=== PATIENT | male | born 1985 | race Caucasian/White ===

== ENCOUNTER 2021-05-14 20:43 | Emergency (ER) | payer OTHER, SELFPAY ==
[2021-05-14 20:44] VITALS: BP 156/103; PULSE 94; RESP 16; TEMP 36.5; O2SAT 98; BMI 30.8
--- NOTE | 2021-05-14 21:41 | EDS_ITS ---
HPI History of Present Illness Chief Complaint: ETOH Intox Narrative Narrative: 35-year-old male with history of PTSD, anxiety, EtOH abuse presenting after his found him on the floor in his own vomit. Patient states that he drinks a lot of whiskey or moonshine. Today he had been drinking all day. His found him on the floor in his own vomit had difficulty getting him up. She was eventually able to get him off the floor. In the ED he states that he feels intoxicated but otherwise fine. He states that he has never gone through withdrawal or had withdrawal seizure. He states that he typically eats a lot of sugar when he stops drinking and has been able to do this multiple times. He denies of desire for detox. He does not want any kind of work-up or treatment. [facility] Medical History Alcohol abuse Anxiety Depression PTSD (post-traumatic stress disorder) Allergy/AdvReac Type Severity Reaction Status Date / Time No Known Allergies Allergy Verified 05/14/21 20:51 Social History Smoking Status: Never smoker ROS ROS ED Constitutional Constitutional ED: Denies chills, fever(s) or sweats Eyes Eyes: Denies blurry vision or change in vision ENT ENT ED: Denies ear pain or sore throat Cardiovascular Cardiovascular: Denies chest pain, palpitations or racing heartbeat Respiratory/Chest Respiratory/Chest: Denies cough, dyspnea or sputum Gastrointestinal Gastrointestinal: Reports nausea and vomiting; Denies abdominal pain, const ipation or diarrhea Genitourinary Genitourinary ED: Denies dysuria, hematuria or urinary frequency Musculoskeletal Musculoskeletal: Denies arthralgias, myalgias or neck pain Integumentary Denies abscess, Abrasions or rash Neurologic Neurologic: Denies headache(s), paresthesias or weakness Psychiatric Psychiatric: Reports anxiety and depression; Denies suicidal ideation or suicidal thoughts Endocrine Endocrinology: Denies polydipsia or polyuria EXAM Physical Exam Const Vital Signs: 05/14/21 20:44 Temperature 97.7 F L Temperature Source Oral Pulse Rate 94 Respiratory Rate 16 Blood Pressure 156/103 H Blood Pressure Mean 120 Pulse Ox 98 Oxygen Delivery Method Room Air Positive well nourished General Appearance ED: NAD HEENT Reports moist mucous membranes Negative for trauma Eyes PERRL and EOMs intact bilaterally General Eye ED: Negative for pale conjunctiva or scleral icterus Resp normal respiratory effort and clear to auscultation bilaterally Cardio regular rate and regular rhythm GI normal to inspection, nondistended, normoactive bowel sounds Neuro oriented x3 and CN's II-XII intact bilaterally Sensorium / Orientation: alert Psych mental status grossly normal Skin no rashes or lesions noted and no wounds MDM MDM MDM Narrative Medical decision making narrative: Patient presenting intoxicated on EtOH. He admits to drinking all day. He does not want to have any work-up nor does he want detox. Patient states that he has never gone through withdrawal symptoms that are significant. Patient is with his who was concerned because he was initially unresponsive but states he is at his baseline intoxication at this point. She feels she is comfortable to take him home at this time. Patient counseled he can return at any time for detox. Impression: 1. EtOH intoxication 2. EtOH abuse Discharge Plan Triage Chief Complaint: ETOH Intox ED Provider: Jalil Maher Dx/Rx/DC Orders Instructions: ED Alcohol Abuse Primary Care Provider: Care Physician,No Primary Referrals: Care Physician,No Primary [Primary Care Provider] - Disposition Disposition: Home, Self Care Discharge Date/Time: 05/14/21 21:52
[2021-05-14 21:49] VITALS: BP 121/86; PULSE 92; RESP 16; O2SAT 96
== END 2021-05-14 21:52 | disposition home or self-care (01) ==
PROVIDERS: Emergency Provider Student in an Organized Health Care Education/Training Program
DX: F10.129 Alcohol abuse with intoxication, unspecified (principal); Y90.9 Presence of alcohol in blood, level not specified
CPT/HCPCS: 99285

== ENCOUNTER → 2024-01-13 | Outpatient (CLI) | payer OTHER, SELFPAY ==
[2024-01-13 10:44] LABS: Bacteria 0 SEEN /hpf (None Seen); Mucous, Urine 0 SEEN /hpf (<or=2+); Red Blood Cells-Urine 0 SEEN /hpf (0-5); Squamous Epithelial Cells - UA 0 SEEN /hpf (0-5); White Blood Cells 0 SEEN /hpf (0-5)
[2024-01-13 12:20] LABS: Color, Urine Yellow (Yellow); Glucose, Dipstick Normal (Normal); Ketone-Dipstick Negative (Negative); Leukocyte Esterase-Dipstick Negative /ul (Negative); Nitrite-Dipstick Negative (Negative); Occult Blood-Urine Negative /ul (Negative); Protein-Dipstick Negative (Negative); Urine Bilirubin Dipstick Negative (Negative); Urine Clarity Clear (Clear); Urine Urobilinogen Normal (Normal)
== END | disposition home or self-care (01) ==
PROVIDERS: Visit Provider Physician Assistant
DX: R30.0 Dysuria (principal)
CPT/HCPCS: 81001; 87086

== ENCOUNTER → 2024-12-19 | Outpatient (CLI) | payer OTHER, SELFPAY ==
--- NOTE | 2024-12-19 07:45 | US_ITS ---
PROCEDURE: ULTRASOUND ABDOMEN LIMITED REASON FOR EXAM: RIGHT UPPER QUADRANT PAIN. COMPARISON: No relevant prior. FINDINGS: Liver: Grossly normal size and echotexture. Sagittal measurement of 16.4 cm. Blood flow: Hepatopetal. Gallbladder: No stones, sludge, wall thickening or tenderness. Common bile duct: Normal measuring 0.25 cm.. Pancreas: Visualized portions are sonographically unremarkable. Right kidney: 10.8 x 6.1 x 5.6 cm. Renal cortex measures 1.9 cm in thickness. US/Abdomen Limited IMPRESSION: NORMAL RIGHT UPPER QUADRANT ULTRASOUND. Reading Location: [facility]
== END | disposition home or self-care (01) ==
LOC: US 07:42
PROVIDERS: PCP Family Medicine; Referring Provider Internal Medicine; Visit Provider Internal Medicine
DX: R10.13 Epigastric pain (principal)
CPT/HCPCS: 76705

== ENCOUNTER → 2024-12-25 | Outpatient (CLI) | payer OTHER, SELFPAY ==
[2024-12-30 17:08] LABS: H. PYLORI STOOL AG Negative (Negative)
== END | disposition home or self-care (01) ==
LOC: LABSPEC 16:02
PROVIDERS: PCP Family Medicine; Referring Provider Internal Medicine; Visit Provider Internal Medicine
DX: R10.13 Epigastric pain (principal)
CPT/HCPCS: 87338

== ENCOUNTER → 2025-04-03 | Outpatient (CLI) | payer OTHER, SELFPAY ==
--- OUTSIDE RECORDS SUMMARY | 2025-04-03 09:11 | XMS RPT_ITS | CCD ---
Author Organization [facility] Clini[facility]v Care Team Providers Care Consulting Practice Manager Name Role Phone Marty Moyer Unavailable Unavailable Marty Moyer Unavailable Unavailable Marty Moyer Unavailable [phone] Unavailable Unavailable Care Physician, No Primary Primary Care Provider Unavailable Care Physician, No Primary Referring Provider Un available MAURICE Fortune Attending Provider [phone] MAURICE Larry Attending Provider [phone] Marty Moyer MD Primary Care Provider Xiang Rodriguez MD Primary Care Provider MARTY MOYER Primary Care Unavailable XIANG RODRIGUEZ Primary Care Unavailable XIANG RODRIGUEZ Primary Care Unavailable Xiang Rodriguez MD Primary Care Provider Xiang Rodriguez MD Primary Care Provider [phone] William Velez Referring Unavailable William Velez Attending Unavailable Xiang Rodriguez Primary Care Unavailable Care Physician, No Primary Primary Care Unava ilLane Ramsey Attending Unavailable William Velez Referring Unavailable William Velez Attending Unavailable Xiang Rodriguez Primary Care Unavailable Care Physician, No Primary Referring Unava ilable Care Physician, No Primary Primary Care Unava ilLane Ramsey Attending Unavailable Care Physician, No Primary Referring Unava ilable Care Physician, No Primary Primary Care Unava ilable Lane Larry Attending Unavailable Dr. William Velez DO Attending Provider [phone] Dr. William Velez DO Referring Provider Dr. Xiang Rodriguez MD Primary Care Provider COREY SANTIAGO Attending Unavailable FURNESS, XIANG T Primary Care Unavailable FURNESS, XIANG T Attending Unavailable FURNESS, XIANG T Primary Care Unavailable COREY SANTIAGO Attending Unavailable FURNESS, XIANG T Primary Care Unavailable SANTIAGOCOREY Henderson Attending Unavailable FURNESS, XIANG T Primary Care Unavailable FURNESS, XIANG T Attending Unavailable FURNESS, XIANG T Referring Unavailable FURNESS, XIANG T Primary Care Unavailable WILLIAM VELEZ Attending Unavailable FURNESS, XIANG T Referring Unavailable FURNESS, XIANG T Primary Care Unavailable SANTIAGOCOREY Henderson Attending Unavailable FURNESS, XIANG T Primary Care Unavailable Medications Current Medications Medication Drug Class(es) Dates Sig (Normalized) Sig (Original) ciprofloxacin 500 mg oral tablet (2 sources) Quinolone Antimicrobial Start: 01-13-2024 take 1 tablet by mouth twice daily Ciprofloxacin Hcl (Cipro) 500 mg tablet Active 500 mg PO TWICE A DAY January 13, 2024 12:00am ibuprofen 600 mg oral tablet (2 sources) Nonsteroidal Anti-inflammatory Drug Start: 01-22-2024 End: 02-01-2024 take 1 tablet by mouth twice daily ibuprofen 600 mg tablet Indications: Hx of prostatitis Take 1 tablet (600 mg) by mouth 2 times a day for 10 days. 20 tablet 0 01/22/2024 02/01/2024 Active [place] (Nk) (2 sources) Start: 01-13-2024 [place] (Nk) Active January 13, 2024 12:00am ondansetron 4 mg oral tablet (9 sources) Serotonin-3 Receptor Antagonist Start: 02-06-2024 take 1 tablet by mouth every eight hours for nausea ondansetron (Zofran) 4 mg tablet Indications: Pain of upper abdomen Take 1 tablet (4 mg) by mouth every 8 hours if needed for nausea or vomiting. 20 tablet 1 02/06/2024 Active Start: 01-31-2024 take 1 tablet by jojo th every eight hours for nausea ondansetron (Zofran) 4 mg tablet Indications: Pain of upper abdomen Take 1 tablet (4 mg) by mouth every 8 hours if needed for nausea or vomiting. 10 tablet 2 01/31/2024 Active oxybate (3 sources) take 3 g by mouth twice daily sodium oxybate (XYREM ORAL) Take 3 g by mouth twice a day. Active pantoprazole 40 mg delayed release oral tablet (9 sources) Proton Pump Inhibitor Start: 2023 End: 2024 take 1 tablet by mouth once daily before mealtime pantoprazole (ProtoNix) 40 mg EC tablet Indications: Gastroesophageal reflux disease with esophagitis without hemorrhage Take 1 tablet (40 mg) by mouth once daily in the morning. Take before meals. Do not crush, chew, or split. 30 tablet 11 01/31/2024 Active sulfamethoxazole 800 mg / trimethoprim 160 mg oral tablet (2 sources) Dihydrofolate Reductase Inhibitor Antibacterial, Sulfonamide Antimicrobial Start: 2023 End: 2023 take 1 tablet by mouth once daily sulfamethoxazole-trim ethoprim (Bactrim DS) 800-160 mg tablet Indications: Hx of prostatitis Take 1 tablet by mouth once daily. 30 tablet 0 01/22/2024 02/21/2024 Active tadalafil 5 mg oral tablet (13 sources) Phosphodiesterase 5 Inhibitor Start: 2023 End: 2024 take 1 tablet by mouth once daily tadalafil (Cialis) 5 mg tablet Indications: Hx of prostatitis Take 1 tablet (5 mg) by mouth once daily. 30 tablet 11 02/10/2025 03/12/2025 Active Start: 01-22-2024 End: 08-12-2024 take 1 tablet by mouth once daily tadalafil (Cialis) 5 mg tablet Indications: Hx of prostatitis Take 1 tablet (5 mg) by mouth once daily. 30 tablet 11 03/02/2024 Active 1 ml testosterone cypionate 200 mg/ml injection (11 sources) Androgen Start: 02-14-2025 End: 03-16-2025 testosterone cypionate (Depo-Testosterone) 200 mg/mL injection Indications: Male hypogonadism Inject 1 mL (200 mg) into the muscle 1 (one) time per week. 4 mL 5 02/14/2025 03/16/2025 Active Start: 08-23-2024 End: 02-10-2025 testosterone cypionate (Depo -Testosterone) 200 mg/mL injection Indications: Male hypogonadism Inject 1 mL (200 mg) into the muscle 1 (one) time per week. 4 mL 5 08/23/2024 02/10/2025 Discontinued (Reorder) Start: 06-21-2024 End: 08-12-2024 testosterone cypionate (Depo -Testosterone) 200 mg/mL injection Indications: Male hypogonadism Inject 1 mL (200 mg) into the muscle 1 (one) time per week. 4 mL 5 06/21/2024 08/12/2024 Discontinued (Reorder) Start: 03-02-2024 End: 08-12-2024 testosterone enanthate (Xyos selvin) 100 mg/0.5 mL auto-injector Indications: Male hypogonadism Inject 1 Syringe (100 mg) under the skin every 7 days. 4 each 5 03/02/2024 08/12/2024 Discontinued (Med List Cleanup) Completed/Discontinued Medications Medication Drug Class(es) Dates Sig (Normalized) Sig (Original) diazePAM 10 mg oral tablet (3 sources) Benzodiazepine Start: 06-19-2021 take 1 tablet by mouth every hour diazePAM 10 MG Oral Tablet TAKE 1 TABLET 1 HOUR PRIOR TO PROCEDURE. Quantity: 1 Refills: 0 Ordered: 25-Jul-2021 Corey Santiago II, MD Start : 19-Jun-2021 Active diphenhydrAMINE hydrochloride 25 mg oral tablet (4 sources) Histamine-1 Receptor Antagonist Start: 09-28-2019 take 1 tablet by mouth at bedtime Benadryl Allergy 25 MG Oral Tablet TAKE 1 TABLET AT BEDTIME. Quantity: 0 Refills: 0 Ordered: 28-Sep-2019 DO Start : 28-Sep-2019 Active 24 hr QUEtiapine 50 mg extended release oral tablet (4 sources) Atypical Antipsychotic Start: 09-28-2019 take 1 tablet by mouth once daily QUEtiapine Fumarate ER 50 MG Oral Tablet Extended Release 24 Hour TAKE 1 TABLET DAILY. Quantity: 30 Refills: 0 Ordered: 28-Sep-2019 Marty Moyer MD Start : 28-Sep-2019 Active 24 hr venlafaxine 37.5 mg extended release oral tablet (4 sources) Serotonin and Norepinephrine Reuptake Inhibitor Start: 09-28-2019 take 1 tablet by mouth every twenty-four hours at mealtime Venlafaxine HCl ER 37.5 MG Oral Tablet Extended Release 24 Hour 1 tablet in the morning with food Quantity: 14 Refills: 1 Ordered: 28-Sep-2019 Marty Moyer MD Start : 28-Sep-2019 Active Problems Active Problems Problem Classification Problem Date Documented Date Episodic/Chronic Abdominal pain (15 sources) Upper abdominal pain; Translations: [Upper abdominal pain, unspecified] Onset: 01-31-2024 01-31-2024 Episodic Alcohol-related disorders (4 sources) Alcoholism; Translations: [Other and unspecified alcohol dependence, unspecified] Chronic Anxiety disorders (4 sources) Anxiety; Translations: [Anxiety state, unspecified] Chronic Contraceptive and procreative management (3 sources) Patient encounter status; Translations: [Other general counseling and advice on contraceptive management] Episodic Esophageal disorders (14 sources) Gastro-esophageal reflux disease with esophagitis; Translations: [Gastroesophageal reflux disease with esophagitis without hemorrhage] Onset: 01-31-2024 01-31-2024 Chronic Esophageal disorders (4 sources) Esophageal disorders; Translations: [Gastro-esophageal reflux disease with esophagitis, without bleeding] Onset: 01-31-2024 Hyperplasia of prostate (12 sources) Benign prostatic hypertrophy with outflow obstruction; Translations: [Benign prostatic hyperplasia with lower urinary tract symptoms] Onset: 02-26-2024 02-26-2024 Chronic Other disorders of stomach and duodenum (1 source) Indigestion 12-10-2024 Episodic Other endocrine disorders (11 sources) Male hypogonadism; Translations: [Testicular hypofunction] Onset: 03-02-2024 03-02-2024 Chronic Other endocrine disorders (4 sources) Testicular hypofunction; Translations: [Testicular hypofunction] Onset: 03-02-2024 Chronic Other male genital disorders (15 sources) History of prostatitis; Translations: [Personal history of other diseases of male genital organs] Onset: 01-22-2024 01-22-2024 Episodic Past or Other Problems Problem Classification Problem Date Documented Da te Episodic/Chronic Genitourinary symptoms and ill-defined conditions (20 sources) Delay when starting to pass urine; Translations: [Hesitancy of micturition] Onset: 01-17-2024 01-22-2024 Episodic Malaise and fatigue (4 sources) Fatigue; Translations: [Other fatigue] Onset: 01-31-2024 01-31-2024 Episodic Other diseases of kidney and ureters (2 sources) Other obstructive and reflux uropathy; Translations: [Other obstructive and reflux uropathy] Onset: 02-26-2024 Episodic Other male genital disorders (2 sources) Personal history of other diseases of male genital organs; Translations: [Personal history of other diseases of male genital organs] Onset: 01-22-2024 Episodic Unclassified (6 sources) Onset: 03-06-2024 03-06-2024 Urinary tract infections (11 sources) Urinary tract infectious disease; Translations: [Urinary tract infection, site not specified] Onset: 01-22-2024 01-22-2024 Episodic Results Test Name Value Interpretation Reference Range Facility HEMOGLOBIN + HEMATOCRITon HEMATOCRIT Normal [facility] Comment on above: Order Comment: FASTI NG:NO FASTING: NO Performed By: #### 5 363, 873, 7998 #### [facility] [address], [address] [place] [address] Head Lineman: Dwight Randall MD HEMOGLOBIN Normal [facility] Comment on above: Order Comment: FASTI NG:NO FASTING: NO Performed By: #### 5 363, 873, 7998 #### [facility] [address], [address] [place] [address] Head Lineman: Dwight Randall MD PSA, TOTALon 02-06-2025 PSA, TOTAL 0.42 ng/mL Normal < OR = 4.00 [facility] Comment on above: Result Comment: The total PSA value from this assay system is standardized against the WHO standard. The test result will be approximately 20% lower when compared to the equimolar-standardized total PSA (Ann [place]). Comparison of serial PSA results should be interpreted with this fact in mind. This test was performed using the Siemens chemiluminescent method. Values obtained from different assay methods cannot be used interchangeably. PSA levels, regardless of value, should not be interpreted as absolute evidence of the presence or absence of disease. Performed By: #### 5 363, 873, 7998 #### [facility] [address], [address] [place], [place] [id number] Head Lineman: Dwight Randall MD TESTOSTERONE, TOTAL, MALES ( ADULT), IAon 02-06-2025 TESTOSTERONE, TOTAL, MALES (ADULT), IA 1152 ng/dL High 250-827 [facility] Comment on above: Performed By: #### 5 363, 873, 7998 #### [facility] of [address], [address] [place] [id number] Head Lineman: Dwight Randall MD H. PYLORI STOOL AGon 025 H PYLORI STL AG Negative Normal Negative [facility] Comment on above: Performed By: #### L 3100.1950 #### [facility] [address] [place], [address] H. pylori Ag IA Ql (Stl)Orde red By: William Velez on 12-25-2024 Stool Helicobacter pylori Antigen Negative Negative [facility] Abdomen Limitedon 12-19-2024 Abdomen Limited [facility] [address] [place], [place] [address] Abdomen Limited MR#: [id number] Acct: [id number] Name: FAN THOMAS Rep #: [id number] : 1985 M 39 From: Vasile Fitch MD PCP: Dr. Xiang Rodriguez MD Status: REG CLI Study: Abdomen Limited Date of Exam: 12/19/24 Exam# [id number] Ordering Dr: William Velez DO PROCEDURE: ULTRASOUND ABDOMEN LIMITED REASON FOR EXAM: RIGHT UPPER QUADRANT PAIN. COMPARISON: No relevant prior. FINDINGS: Liver: Grossly normal size and echotexture. Sagittal measurement of 16.4 cm. Blood flow: Hepatopetal. Gallbladder: No stones, sludge, wall thickening or tenderness. Common bile duct: Normal measuring 0.25 cm.. Pancreas: Visualized portions are sonographically unremarkable. Right kidney: 10.8 x 6.1 x 5.6 cm. Renal cortex measures 1.9 cm in thickness. US/Abdomen Limited IMPRESSION: NORMAL RIGHT UPPER QUADRANT ULTRASOUND. Reading Location: [facility] CC: Dr. William Velez DO; Dr. Xiang Rodriguez MD Automatic Screwmaker: Signed Normal [facility] Hemoglobin and Hematocrit pa suzanna (Bld)on 08-05-2024 Hematocrit (Bld) [Volume fraction] 43.3 % Normal 41.0-52.0 [facility] Comment on above: Performed By: #### 2 4360-0 ###Kei VELAZQUEZ ([id number]) [facility] ([facility]) [address] [place] [address] Hemoglobin (Bld) [Mass/Vol] 15.1 g/dL Normal 13.5-17.5 [facility] Comment on above: Performed By: #### 2 4360-0 #### CONCHIS VELAZQUEZ ([id number]) [facility] ([facility]) [facility] [place] [address] Prostate specific Agon 08-05 Prostate specific Ag [Mass/Vol] 0.59 ng/mL Normal <=4.00 [facility] Comment on above: Order Comment: The DA requires that the method used for PSA assay be reported to the physician. Values obtained with different assay methods must not be used interchangeably. This test was performed at [facility] using the HYLA Mobile PSA assay is a two-site immunoenzymatic sandwich assay. The assay is approved for measurement of prostate-specific antigen (PSA)in serum and may be used in conjunction with a digital rectal examination in men 50 years and older as an aid in detection of prostate cancer. 1-Vpmzg-pxzkztwdz inhibitors (e.g. Proscar, Finasteride, Avodart, Dutasteride and Josseline) for the treatment of BPH have been shown to lower PSA levels by an average of 50% after 6 months of treatment. Performed By: #### 2 857-1 #### CONCHIS VELAZQUEZ ([id number]) [facility] ([facility]) [address] [place] [address] Testosteroneon 08-05-2024 Testosterone [Mass/Vol] 1074 ng/dL High 240-1000 [facility] Comment on above: Order Comment: Nandr olone decanoate, 11 Beta-hydroxytestosterone, androstenedione, testosterone propionate and 12-zelm-nmuzpyczqlrg strongly cross react with this test method. Biotin interference may cause falsely elevated results. Patients taking a Biotin dose of up to 5 mg/day should refrain from taking Biotin for 24 hours before sample collection. Providers may contact their local laboratory for further information. Performed By: #### 2 986-8 #### BLANCA Dias ([id number]) [facility] ([facility]) [address] [place] [address] Testosterone Free/Testostero ne.total [Mass fraction]on 02-26-2024 Testosterone [Mass/Vol] 403 ng/dL Normal 250-1100 [facility] Comment on above: Result Comment: For additional information, please refer to http://education.NexSteppe.EGEN/faq/ [email or web address] (This link is being provided for informational/ educational purposes only.) This test was developed and its analytical performance characteristics have been determined by [facility] [place] [place]. It has not been cleared or approved by the U.S. Food and Drug Administration. This assay has been validated pursuant to the CLIA regulations and is used for clinical purposes. Performed By: #### 1 5432-8 #### KENN SCOTT ([id number]) [address] [facility] [place] Testosterone Free [Mass/Vol] 52.0 pg/mL Normal 35.0-155.0 [facility] Comment on above: Result Comment: This test was developed and its analytical performance characteristics have been determined by [facility] [place] [place]. It has not been cleared or approved by the U.S. Food and Drug Administration. This assay has been validated pursuant to the CLIA regulations and is used for clinical purposes. Performed By: #### 1 5432-8 #### QUEST TYLER ([id number]) [address] [facility] [place] CBC panel Auto (Bld)on 01-30 Erythrocyte distribution width (RBC) [Ratio] 12.8 % Normal 11.5-14.5 [facility] Comment on above: Performed By: #### 5 8410-2 #### CONCHIS VELAZQUEZ ([id number]) [facility] ([facility]) [address] [place] [address] Hematocrit (Bld) [Volume fraction] 42.8 % Normal 41.0-52.0 [facility] Comment on above: Performed By: #### 5 8410-2 #### CONCHIS VELAZQUEZ ([id number]) [facility] ([facility]) [address] [place] [address] Hemoglobin (Bld) [Mass/Vol] 14.4 g/dL Normal 13.5-17.5 [facility] Comment on above: Performed By: #### 5 8410-2 #### CONCHIS VELAZQUEZ ([id number]) [facility] ([facility]) [address] [place] [address] 07167 MCH (RBC) [Entitic mass] 29.1 pg Normal 26.0-34.0 [facility] Comment on above: Performed By: #### 5 8410-2 #### CONCHIS VELAZQUEZ ([id number]) [facility] ([facility]) [address] [place] [address] 33653 MCHC (RBC) [Mass/Vol] 33.6 g/dL Normal 32.0-36.0 [facility] Comment on above: Performed By: #### 5 8410-2 #### CONCHIS VELAZQUEZ ([id number]) [facility] ([facility]) [address] [place] [address] 64994 MCV (RBC) [Entitic vol] 87 fL Normal 80-100 [facility] Comment on above: Performed By: #### 5 8410-2 #### CONCHIS VELAZQUEZ ([id number]) [facility] ([facility]) [address] [place] [address] 35475 Nucleated RBC/100 WBC (Bld) [Ratio] 0.0 /100 WBCs Normal 0.0-0.0 [facility] Comment on above: Performed By: #### 5 8410-2 #### CONCHIS VELAZQUEZ ([id number]) [facility] ([facility]) [address] [place] [address] 66293 Platelets (Bld) [#/Vol] 254 x10*3/uL Normal 150-450 [facility] Comment on above: Performed By: #### 5 8410-2 #### CONCHIS VELAZQUEZ ([id number]) [facility] ([facility]) [address] [place] [address] 60842 RBC (Bld) [#/Vol] 4.95 x10*6/uL Normal 4.50-5.90 [facility] Comment on above: Performed By: #### 5 8410-2 #### CONCHIS VELAZQUEZ ([id number]) [facility] ([facility]) [address] [place] [address] 98728 WBC (Bld) [#/Vol] 6.6 x10*3/uL Normal 4.4-11.[address] [facility] Comment on above: Performed By: #### 5 8410-2 #### CONCHIS VELAZQUEZ ([id number]) [facility] ([facility]) [address] [place] [address] 57760 Cobalaminson 01-31-2024 Cobalamin (Vitamin B12) [Mass/Vol] 429 pg/mL Normal 211-911 [facility] Comment on above: Performed By: #### 2 132-9 #### CONCHIS VELAZQUEZ ([id number]) [facility] ([facility]) [address] [place] [address] 97218 Comprehensive metabolic 2000 panelon 01-31-2024 Albumin BCP dye [Mass/Vol] 5.1 g/dL High 3.4-5.0 [facility] Comment on above: Performed By: #### 2 4323-8 #### CONCHIS VELAZQUEZ ([id number]) [facility] ([facility]) [address] [place] [address] 84210 ALP [Catalytic activity/Vol] 44 U/L Normal 33-120 [facility] Comment on above: Performed By: #### 2 4323-8 #### CONCHIS VELAZQUEZ ([id number]) [facility] ([facility]) [address] [place] [address] 43700 ALT With P-5'-P [Catalytic activity/Vol] 46 U/L Normal 10-52 [facility] Comment on above: Result Comment: Maty ents treated with Sulfasalazine may generate falsely decreased results for ALT. Performed By: #### 2 4323-8 #### CONCHIS VELAZQUEZ ([id number]) [facility] ([facility]) [address] [place] [address] 87161 Anion gap [Moles/Vol] 9 mmol/L Low 10-20 [facility] Comment on above: Performed By: #### 2 4323-8 #### CONCHIS VELAZQUEZ ([id number]) [facility] ([facility]) [address] [place] [address] AST With P-5'-P [Catalytic activity/Vol] 22 U/L Normal 9-39 [facility] Comment on above: Performed By: #### 2 4323-8 #### CONCHIS VELAZQUEZ ([id number]) [facility] ([facility]) [address] [place] [address]186 Bilirubin [Mass/Vol] 0.5 mg/dL Normal 0.0-1.2 [facility] Comment on above: Performed By: #### 2 4322-8 #### CONCHIS VELAZQUEZ ([id number]) [facility] ([facility]) [address] [place] [address] 72993 Calcium [Mass/Vol] 9.5 mg/dL Normal 8.6-10.3 [facility] Comment on above: Performed By: #### 2 4322-8 #### CONCHIS VELAZQUEZ ([id number]) [facility] ([facility]) [address] [place] [address] Chloride [Moles/Vol] 104 mmol/L Normal 98-107 [facility] Comment on above: Performed By: #### 2 432-8 #### CONCHIS VELAZQUEZ ([id number]) [facility] ([facility]) [address] [place] [address] 66396 CO2 [Moles/Vol] 29 mmol/L Normal 21-32 [facility] Comment on above: Performed By: #### 2 4322-8 #### CONCHIS VELAZQUEZ ([id number]) [facility] ([facility]) [address] [place] [address] 63551 Creatinine [Mass/Vol] 1.02 mg/dL Normal 0.50-1.30 [facility] Comment on above: Performed By: #### 2 4323-8 #### CONCHIS VELAZQUEZ ([id number]) [facility] ([facility]) [address] [place] [address] 97408 GFR/1.73 sq M.predicted MDRD (S/P/Bld) [Vol rate/Area] mL/min/{1.73_m2} Normal >60 [facility] Comment on above: Result Comment: Calc ulations of estimated GFR are performed using the 2020 CKD-EPI Study Refit equation without the race variable for the IDMS-Traceable creatinine methods. https://jasn.asnjournals.org/content//ASN.167 8427912 Performed By: #### 2 4323-8 #### CONCHIS VELAZQUEZ ([id number]) [facility] ([facility]) [address] [place] [address] 84697 Glucose [Mass/Vol] 81 mg/dL Normal 74-99 [facility] Comment on above: Performed By: #### 2 4323-8 #### CONCHIS VELAZQUEZ ([id number]) [facility] ([facility]) [address] [place] [address] 59027 Potassium [Moles/Vol] 4.4 mmol/L Normal 3.5-5.3 [facility] Comment on above: Performed By: #### 2 4323-8 #### CONCHIS VELAZQUEZ ([id number]) [facility] ([facility]) [address] [place] [address] 82760 Protein [Mass/Vol] 7.5 g/dL Normal 6.4-8.2 [facility] Comment on above: Performed By: #### 2 4323-8 #### CONCHIS VELAZQUEZ ([id number]) [facility] ([facility]) [address] [place] [address] 52152 Sodium [Moles/Vol] 138 mmol/L Normal 136-145 [facility] Comment on above: Performed By: #### 2 4323-8 #### CONCHIS VELAZQUEZ ([id number]) [facility] ([facility]) [address] [place] [address] 71972 Urea nitrogen [Mass/Vol] 16 mg/dL Normal 6-23 [facility] Comment on above: Performed By: #### 2 4323-8 #### CONCHIS VELAZQUEZ ([id number]) [facility] ([facility]) [address] [place] [address] Magnesiumon 01-31-2024 Magnesium [Mass/Vol] 2.09 mg/dL Normal 1.60-2.40 [facility] Comment on above: Performed By: #### 1 9123-9 #### CONCHIS VELAZQUEZ ([id number]) [facility] ([facility]) [facility] [place] [address] Thyrotropinon 01-31-2024 TSH Qn 1.77 m[IU]/L Normal 0.44-3.98 [facility] Comment on above: Order Comment: TSH t esting is performed using different testing methodology at [facility] than at other [facility]. Direct result comparisons should only be made within the same method. Performed By: #### 3 016-3 #### CONCHIS VELAZQUEZ ([id number]) [facility] ([facility]) [address] [place] [address] Triacylglycerol lipaseon Lipase [Catalytic activity/Vol] 29 U/L Normal 9-82 [facility] Comment on above: Order Comment: Venip uncture immediately after or during the administration of Metamizole may lead to falsely low results. Testing should be performed immediately prior to Metamizole dosing. Performed By: #### 3 040-3 #### CONCHIS VELAZQUEZ ([id number]) [facility] ([facility]) [address] [place] [address] Urine Cultureon 01-14-2024 URC Culture exhibits no growth. Normal [facility] Comment on above: Performed By: #### L 400.0001, M100.2200 #### [facility] [address] [facility] [place], [address] Basophil percentageOrdered B y: Lane Sánchez on 01-13-2024 Basophil percentage 0 SEEN /hpf 0-5 [facility] Bilirubin Test strip Ql (U)O rdered By: Lane Sánchez on 01-13-2024 Bilirubin Ql (U) Negative Negative [facility] Culture, urineOrdered By: St latrice Sánchez on 03-18-2024 Bacteria identified Cx Nom (U) Culture exhibits no growth. [facility] Ketones Test strip Ql (U)Ord ered By: Lane Sánchez on 01-13-2024 Ketones Ql (U) Negative Negative [facility] - Chemistry and C hemistry - challengeon 01-13-2024 Bilirubin Ql (U) Negative [facility] Glucose Ql (U) Negative [facility] Ketones Ql (U) Trace (5) [facility] pH (U) 7.5 [pH] [facility] Specific gravity (U) [Rel density] 1.010 [facility] Urobilinogen (U) [Mass/Vol] 0.0340769 mg/dL [facility] - Hematology and Cell countson 01-13-2024 Hemoglobin Ql (U) Negative [facility] - Microbiology an d Antimicrobial susceptibilityon 01-13-2024 SARS-CoV-2 (COVID-19) RNA MARIA D+probe Ql (Unsp spec) Not detected [facility] - Specimen inform ationon 01-13-2024 Clarity (U) Cloudy [facility] Color (U) YELLOW [facility] - Urinalysison Nitrite Ql (U) Negative [facility] Protein Ql (U) Trace [facility] Mucus LM Ql (Urine sed)Order ed By: Lane Sánchez on 01-13-2024 Mucus Ql (Urine sed) 0 SEEN /hpf [facility] Nitrite Test strip Ql (U)Ord ered By: Lane Sánchez on 01-13-2024 Nitrite Ql (U) Negative Negative [facility] No Panel InformationOrdered By: Lane Sánchez on 01-13-2024 Urine RBC 0 SEEN /hpf 0-5 [facility] No Panel Informationon 01-12 POC Nasal Swab Influenza A,B Not detected [facility] POC Nasal Swab RSV Not detected [facility] Urine Leukocytes Positive [facility] Urine Non-Hemolyzed Blood Non-Hemolyzed [facility] Office Visit Reporton 2023 Office Visit Report [facility] [address] [place] [address] OFFICE VISIT Date of Service: 01/13/24 MR#: [id number] Acct: [id number] Patient: FAN THOMAS Rep #: [id number] : 1985 Provider: MAURICE Delgado Age/Sex: 38/M Location: [facility] Status: Signed Employer Purchased Covid Test Note: Patient here today for Covid Testing, requested by their Employer. 01/13/[address] [place] Cosigner Signature: Date (if applicable) CC: Normal [facility] Protein Test strip Ql (U)Ord ered By: Lane Sánchez on 01-13-2024 Protein Ql (U) Negative Negative [facility] Squamous epithelial cells de tection in urine sediment by light microscopyOrdered By: Lane Sánchez on 01-13-2024 Epithelial cells.squamous LM Ql (Urine sed) 0 SEEN /hpf 0-5 [facility] Urgent Care Visit Reporton 0 01-13-2024 Urgent Care Visit Report [facility] [address], [address] [place] [address] OFFICE VISIT Date of Service: 01/13/24 MR#: [id number] Acct: [id number] Name: FAN THOMAS Rep #: [id number] : 1985 Provider: MAURICE Delgado Age/Sex: 38/M Location: [facility] Status: Signed Intake Vital Signs 05/14/21 20:44 01/13/24 10:01 Height 5 ft 9 in 5 ft 10 in Weight: 200 lb BMI 28.7 BP 132/86 H Blood Pressure Location Lt brachial Position Sitting Respiration 16 Pulse 80 Pulse Source Monitor Temp 98.7 F Temp Source Temporal Pulse Oximetry (%) 99 Oxygen Delivery Method room air Intake Visit Reasons: NAUSEA/FATIGUE Chief Complaint: NAUSEA, fatigue, vomitting, chills, urine issues for 2 weeks Securities Counselor Required: No Accompanied by: Self Is patient in pain?: Yes Allergies No Known Allergies Allergy (Verified 01/13/24 10:04) Medications NK 01/13/24 [History Confirmed 01/13/24] ciprofloxacin HCl 500 mg tablet (Cipro) 500 mg PO BID #14 tabs 01/13/24 [Rx Confirmed 01/13/24] Nurse's Note: Pt states he has been extremely fatigued and is having issues going to restroom for the last 2 weeks. Pt states he has nausea, chills, has vomited and has lower back pain. PFSH Medical History Alcohol abuse Anxiety Depression PTSD (post-traumatic stress disorder) Social History Smoking Status: Never smoker HPI HPI Chief Complaint: NAUSEA, fatigue, vomitting, chills, urine issues for 2 weeks Details: FAN THOMAS, is a 38 M who presents to the office today for [facility] for approximately 10-14 day history of dysuria and urinary frequency with suprapubic pressure and new fatigue/nausea/chil ls and emesis x 1 as well as right mid back pain over the last 48 hours. No complaints of fever, sweats, lightheadedness/diz ziness, or chest pain/shortness of breath/dyspnea on exertion. No changes in color/ character of urine or stool. No tlxu-abi-idzsvzg products taken to assist. No other associated symptoms and no alleviating/aggrava ting factors. ROS Const Constitutional: No other (As above) Exam Const General: cooperative, healthy appearing and no acute distress Orientation: alert, awake and oriented x3 Chest Chest palpation inspection: normal inspection of the chest Resp Effort Inspection: normal respiratory effort and able to speak in complete sentences Auscultation: Bilateral: Clear to Auscultation Cardio Palpation: normal PMI Rate: regular rate Rhythm: regular rhythm Heart Sounds: S1 normal, S2 normal, no gallops, no murmurs and no rubs Pulses: radial pulses present GI Inspection: normal to inspection Palpation: soft and tender suprapubic (Patient describes upon self-palpation) General: Right CVA tenderness Skin General: no rashes or lesions noted Neuro General: patient alert, patient awake and patient oriented x3 Cognition: normal cognition Speech: speech normal Psych Appearance: grossly normal Mental Status: mental status grossly normal Mood: congruent mood Affect: normal affect Speech and Movement: speech and movement normal Attitude: cooperative Diagnoses Urinary tract infection N39.0 Assessment and Plan Assessment and Plan (1) Urinary tract infection: Status: Acute Plan: - w/ R CVA tenderness See POC results; urine sent to lab for UA and C/S. Cipro as prescribed today. Supportive measures as instructed today. Follow-up with PCP in 3 to 5 days should symptoms not improve, ED sooner should symptoms only worsen or any other concerns develop. Patient states acknowledging understanding all the above Results POC Urinalysis Dip (Clinic) Office Urine Color YELLOW Last Edit by Adina Lopes MA on 01/13/24 10:12 Office Urine Clarity Cloudy Last Edit by Adina Lopes MA on 01/13/24 10:12 Office Urine Glucose Negative Last Edit by Adina Lopes MA on 01/13/24 10:12 Office Urine Ketones Trace (5) Last Edit by Adina Lopes MA on 01/13/24 10:12 Off Ur Spec [place] 1.010 Last Edit by Adina Lopes MA on 01/13/24 10:12 Office Urine pH 7.5 Last Edit by Adina Lopes MA on 01/13/24 10:12 Office Urine Bilirubin Negative Last Edit by Adina Lopes MA on 01/13/24 10:12 Office Urine Urobilinogen 0.2 mg/dL Last Edit by Adina Lopes MA on 01/13/24 10:12 Office Urine Blood Negative Last Edit by Adina Lopes MA on 01/13/24 10:12 Office Urine Blood Hemolyzed Non-Hemolyzed Last Edit by Adina Lopes MA on 01/13/24 10:12 Office Urine Protein Trace Last Edit by Adina Lopes MA on 01/13/24 10:12 Office Urine Nitrate Negative Last Edit by Adina Lopes MA on 01/13/24 10:12 Off Ur Leukocytes Positive Last Edit by Cori (more content not included)... Normal [facility] Urinalysis, Completeon 01-12 BACTERIA 0 SEEN Normal None Seen [facility] Comment on above: Order Comment: COLLE CTOR TO SPECIFY Performed By: #### L 400.0001, M100.2200 #### [facility] [address] [place], [address] EPI,SQUAMOUS 0 SEEN Normal 0-5 [facility] Comment on above: Order Comment: COLLE CTOR TO SPECIFY Performed By: #### L 400.0001, M100.2200 #### [facility] [address] [place], [address] Mucus Ql (Urine sed) 0 SEEN Normal [facility] Comment on above: Order Comment: JESUS CTOR TO SPECIFY Performed By: #### L 400.0001, M100.2200 #### [facility] [address] [place], [address] RBC 0 SEEN Normal 0-5 [facility] Comment on above: Order Comment: [facility] CTOR TO SPECIFY Performed By: #### L 400.0001, M100.2200 #### [facility] [address] [place], [address] WBC 0 SEEN Normal [address] [place] [address] Comment on above: Order Comment: JESUS CTOR TO SPECIFY Performed By: #### L 400.0001, M100.2200 #### [facility] [address] [place], [address] Urine blood detectionOrdered By: Lane Sánchez on 01-13-2024 RBC Ql (U) Negative Negative [facility] Urine clarityOrdered By: Will Sánchez on 01-13-2024 Clarity (U) Clear Clear [facility] Urine color determinationOrd ered By: Lane Sánchez on 01-13-2024 Color (U) Yellow Yellow [facility] Urine glucose detectionOrder ed By: Lane Sánchez on 01-13-2024 Glucose Ql (U) Normal mg/dl Normal [facility] Urine leukocyte esterase det ection by dipstickOrdered By: Lane Sánchez on 01-13-2024 Leukocyte esterase Test strip Ql (U) Negative Negative [facility] Urine pHOrdered By: Lane mckeon on 01-13-2024 pH (U) 8.0 [pH] 5.0 - 8.0 [facility] Urine sediment bacteria coun t by microscopy (number/high power field)Ordered By: Lane Sánchez on 01-13-2024 Bacteria LM.HPF (Urine sed) [#/Area] 0 /[HPF] None Seen [facility] Urine specific gravity measu rementOrdered By: Lane Sánchez on 01-13-2024 Specific gravity (U) [Rel density] 1.010 1.002-1.030 [facility] Urine urobilinogen measureme ntOrdered By: Lane Sánchez on 01-13-2024 Urobilinogen Ql (U) Normal mg/dl Normal [facility] - Microbiology an d Antimicrobial susceptibilityon 11-28-2023 SARS-CoV-2 (COVID-19) RNA MARIA D+probe Ql (Unsp spec) Not detected [facility] No Panel Informationon 11-28 POC Nasal Swab Influenza A,B Detected [facility] POC Nasal Swab RSV Not detected [facility] Office Visit (Urology)on Follow-up visit Diagnoses/Problems Assessed Admission for vasectomy (V25.2) (Z30.2) Chief Complaint vasectomy Active Problems Problems Alcoholism (303.90) (F10.20) Anxiety (300.00) (F41.9) Encounter for vasectomy assessment (V25.09) (Z30.09) Surgical History Problems History of Hand surgery Family History Mother No pertinent family history Father Family history of hypertension (V17.49) (Z82.49) Grandparent Family history of hypertension (V17.49) (Z82.49) Family history of lung cancer (V16.1) (Z80.1) Family history of myocardial infarction (V17.3) (Z82.49) Social History Problems Alcohol use (V49.89) (Z72.89) Former smokeless tobacco use (V15.82) (Z87.891) No advance directives (V49.89) (Z78.9) Allergies Medication No Known Drug Allergies Recorded By: Cydney Rueda; 09/28/2019 4:32:13 PM Current Meds Medication NameInstruction Benadryl Allergy 25 MG Oral TabletTAKE 1 TABLET AT BEDTIME. diazePAM 10 MG Oral TabletTAKE 1 TABLET 1 HOUR PRIOR TO PROCEDURE. QUEtiapine Fumarate ER 50 MG Oral Tablet Extended Release 24 HourTAKE 1 TABLET DAILY. Venlafaxine HCl ER 37.5 MG Oral Tablet Extended Release 24 Hour1 tablet in the morning with food Procedure The patient was prepped and draped in the standard surgical fashion. 1% Lidocaine was injected into the scrotum. A small scrotal excision was made and the vas deferens brought through the incision. We then dissected the vas deferens free of its surroundings attachments and three clips were placed on the vas deferens. A section of the vas deferens was then excised. We then assured that adequate hemostasis was obtained. I closed the excision with a single chromic suture. The identical procedure was performed on the opposite side. The patient tolerated the procedure well and there were no complications. The patient was instructed on post-operative care as well as the importance of dropping off a semen analysis. The post-operative instructions were given to the patient in writing as well. Signatures Electronically signed by : Corey Santiago II, MD; Aug 09 2021 3:50PM EST (Author) Normal [facility] Visit ([facility]rology)on Follow-up visit Diagnoses/Problems Assessed Encounter for vasectomy assessment (V25.09) (Z30.09) Orders Encounter for vasectomy assessment Start: diazePAM 10 MG Oral Tablet; TAKE 1 TABLET 1 HOUR PRIOR TO PROCEDURE Rx By: Corey Santiago II; Dispense: 1 Days ; #:1 Tablet; Refill: 0;For: Encounter for vasectomy assessment; SURAJ = N; Sent To: [facility]; Last Updated By: Zari Ochoa; 06/19/2021 3:12:31 PM Follow-up visit in 1 month Outpatient Follow-up VASECTOMY Status: Hold For - Scheduling,Retrospe ctive By Protocol Authorization Requested for: [id number] Ordered Stat;For: Encounter for vasectomy assessment; Ordered By: Corey Santiago II Performed: Due: 17Sep2021; Last Updated By: Zari Ochoa; 06/19/2021 3:12:31 PM Patient Discussion/Summary Pros/cons of vasectomy reviewed. Questions answered. Valium Rx given. Observe mild LUTS. F/U vas in office Chief Complaint Vasectomy consult History of Present IllnessPatient is here for vasectomy consult. Patient is and 3 children. LUT'S sx are mild and stable. Denies urgency and frequency. Denies dysuria. Denies hematuria. Nocturia x1. No medication for CHAN'TS. Review of Systems Constitutional: No fever, No chills. Eye: Negative. Ear/Nose/Mouth/Thro at: Negative. Respiratory: No shortness of breath, No cough. Cardiovascular: No chest pain, No peripheral edema. Gastrointestinal: No nausea, Genitourinary: Negative except as documented in history of present illness. Hematology/Lymphati cs: Patient denies being on blood thinners.. Endocrine: Negative. Immunologic: Not immunocompromised. Musculoskeletal: Negative Integumentary: Negative. Neurologic: Alert and oriented X4. Psychiatric: Negative. Active Problems Problems Alcoholism (303.90) (F10.20) Anxiety (300.00) (F41.9) Surgical History Problems History of Hand surgery Family History Mother No pertinent family history Father Family history of hypertension (V17.49) (Z82.49) Grandparent Family history of hypertension (V17.49) (Z82.49) Family history of lung cancer (V16.1) (Z80.1) Family history of myocardial infarction (V17.3) (Z82.49) Social History Problems Alcohol use (V49.89) (Z72.89) Former smokeless tobacco use (V15.82) (Z87.891) No advance directives (V49.89) (Z78.9) Allergies Medication No Known Drug Allergies Recorded By: Cydney Rueda; 09/28/2019 4:32:13 PM Current Meds Medication NameInstruction Benadryl Allergy 25 MG Oral TabletTAKE 1 TABLET AT BEDTIME. QUEtiapine Fumarate ER 50 MG Oral Tablet Extended Release 24 HourTAKE 1 TABLET DAILY. Venlafaxine HCl ER 37.5 MG Oral Tablet Extended Release 24 Hour1 tablet in the morning with food Vitals Vital Signs Recorded: [id number] 03:10PM Heart Rate88 Gutiyuvk623 Uvxlvzkel88 Height5 ft 10 in Ztawxr741 lb BMI Zqbvzcwyae49.85 kg/m2 BSA Calculated2.15 Tobacco Useb) No Fall Screeninga) No falls within the last year Physical Exam A/O x 3 in No apparent distress Constitutional: General appearance normal Respiratory: Respiratory effort is normal Gastrointestinal:Ab domen is not tender Genitourinary: Kidneys: Not palpable Bilaterally Bladder: Not palpable or tender Scrotum: No mass. No Hydrocele Epididymis: No spermatocele. Not tender Testicles: no mass Urethra: No Discharge Penis: WNL...No lesions Seminal Vesicles: No mass Signatures Electronically signed by : Corey Santiago II, MD; Jun 19 2021 3:14PM EST (Author) Normal [employer] Tobacco Screening.on 021 Fall risk assessment a) No falls within the last year [facility] Work Phone: Tobacco use status [facility] b) No M [facility] Work Phone: CORONAVIRUS 2019 BY PCRon SARS-CoV-2 (COVID-19) RNA MARIA D+probe Ql (Unsp spec) Detected Abnormal Not Detected [facility] Comment on above: Order Comment: COVID CALLED TO BLAIRE 12/07/2020 15:39 Result Comment: . This assay is designed to detect the N, ORF1ab and/or S genes of SARS-CoV-2 via nucleic acid amplification. A Negative (NOT DETECTED) result does not preclude 2019-nCoV infection since the adequacy of sample collection and/or low viral burden may result in presence of viral nucleic acids below the clinical sensitivity of this test method. Negative (NOT DETECTED) result should not be used as the sole basis for treatment or other patient management decisions. Rather negative results should be combined with clinical observations, patient history, and epidemiological information to make patient management decisions. Fact sheet for providers: https://www.fda.gov/media/900141/download Fact sheet for patients: https://www.fda.gov/media/219467/download This test has received FDA Emergency Use Authorization (EUA) and has been verified by [facility] ([facility]). This test is only authorized for the duration of time that circumstances exist to justify the authorization of the emergency use of in vitro diagnostic tests for the detection of SARS-CoV-2 virus and/or diagnosis of COVID-19 infection under section 564(b)(1) of the Act, 21 U.S.C. 360bbb-3(b)(1), unless the authorization is terminated or revoked sooner. [facility] is certified under CLIA-88 as qualified to perform high complexity testing. Testing is performed in the [facility] laboratories located at [id number] [place] [address]. COVID CALLED TO BLAIRE, 12/07/2020 15:39 Performed By: #### C OV19 #### [facility] [id number] [place] [address]. [place] [address] Clinical Event Noteon 2020 Clinical Event Note Clinical Event: Clinical Event Note: Details +covid called Details+covid called Electronic Signatures: Vasile Freeman (TERA) (Signed 07-Dec-2020 15:48) Authored: Clinical Event Note Last Updated: 07-Dec-2020 15:48 by Vasile Freeman (TERA) [facility] Covid 19 Resultson SARS-CoV-2 (COVID-19) RNA MARIA D+probe Ql (Unsp spec) POSITIVE COVID-19 Test Coronaviruses are common world-wide and are the cause of many common colds. SARS-COV2 is a new coronavirus that began circulating worldwide in 2019 so we are calling it COVID-19. It has been estimated that four out of five patients with COVID-19 will recover at home without the need for medical attention. Symptoms of COVID-19 include cough, fever, shortness of breath, loss of taste or smell and other flu-like symptoms including chills, sore muscles, sore throat, and headache. Severe illness is more common in older people and people with other health problems such as high blood pressure, obesity, and immune system problems. If the test is positive, you have COVID-19. You will be contacted by the ordering physicians office and instructed to remain on home isolation, in accordance with CDC guidelines. You may also be contacted by the [facility] to see if any of your close contacts may have been exposed to the virus and need to quarantine. If the test is negative, you likely do not have COVID-19 at this time, but you still may have a different illness that can spread to other people (like Influenza, or the Flu) and could still be at risk for getting COVID-19. We recommend that you stay away from other people to limit the spread of illness until your symptoms are improving and you are fever-free for 24 hours without the use of fever lowering medications such as acetaminophen or ibuprofen. No test is 100% accurate so if you are still concerned you may have COVID-19, talk to your doctor about the need to continue to stay away from others. Medicines Acetaminophen (Tylenol and others) is generally safe. Anti-inflammatory medications, such as Ibuprofen (Advil or Motrin) or Naproxen (Aleve) can also be used. Allg-bbb-luxoxdv cough and cold medicines can be used according to the instructions on the package. Some egcv-omw-midvlrj medicines also contain acetaminophen. Make sure you are not taking more than your recommended dose For those not hospitalized, there is no specific treatment available for this illness. Antibiotics do not treat Coronaviruses. Follow-Up Follow up with your doctor by scheduling a virtual visit or consider follow-up at one of our urgent care fever clinics. If you are having difficulty breathing, or are very weak and having difficulty standing, this is a medical emergency. Call 911 or have someone take you to the nearest emergency room immediately. If possible, wear a facemask. Additional guidance from the CDC for patients who tested POSITIVE for COVID-19 How to isolate: Isolate yourself in a specific room at home and limit your contact with others. Use a separate bathroom from other members of the household, when possible. Leave home only to get essential medical care. Do not go to work, school or public areas. Avoid using public transportation, ride-sharing, or taxis. Restrict contact with pets and other animals. If you must care for your pet or be around animals while you are sick, wash your hands before and after your interaction and wear a facemask. Make sure that shared spaces in the home have good airflow, such as by an air conditioner or an opened window, weather permitting. Personal Hygiene Procedures: Wear a face mask when in the same room as other people or pets. If a face mask interferes with your breathing, others should wear a mask when sharing space with you. Frequent hand-washing: wash your hands with soap and water for at least 20 seconds. If soap and water are not available, use alcohol-based hand internal communications writer. Avoid touching your eyes, nose, and mouth with unwashed hands. Household Hygiene Procedures: Avoid sharing personal household items such as dishes, glassware, cups, eating utensils, towels or bedding with other people or pets in your home. After use, these items should be washed with soap and hot water. Disinfect all high-touch surfaces every day with antibacterial cleaning solutions such as Lysol wipes, bleach, cleansers, etc. High-touch surfaces include tabletops, doorknobs, bathroom fixtures, toilets, phones, keyboards, tablets and bedside tables. Immediately clean any surfaces that may have blood, poop or body fluids on them, using antibacterial cleaning solutions such as Lysol wipes, bleach, cleansers, etc. If clothing or bedding come into contact with blood, poop or body fluids, they should be washed immediately. Follow the directions on the laundry detergent and clothing labels but hot water is recommended when possible. Stopping home isolation precautions: If possible, consult your doctor before stopping home isolation precautions. According to the CDC, you can discontinue home isolation precautions when you have met both of these criteria: Your fever and respiratory symptoms have been gone for 24 hours without the use of any medicines like ibuprofen (Motrin) (more content not included)... Normal [facility] Provider Note - ED v2on 11-28 Provider Note - ED v2 Provider Note - ED v2: Chart Review: ED NOTES ED NOTES: Source of Information: Patient. EMR was reviewed for previous records. ---- ---- HPI: This is a 35-year-old male presenting to the emergency room with concerns of Covid exposure. He reports that his roommate tested positive for COVID-19 today. The patient has been experiencing mild symptoms since 03 December. He states he has had body aches, hot and cold chills, and a mild headache. He reports that his headache was not the worst that he is ever had. It was gradual on onset. He is not having any chest pain but states occasionally it feels like it is hard for him to breathe. He denies any history of any lung disease. The patient does not smoke. He denies any loss of taste or smell. He denies any diarrhea. ---- ---- ROS: A minimum of 10 review of systems were reviewed and normal unless otherwise stated in HPI. ---- ---- PMH: as noted PSH: as noted Fam: Noncontributory MEDS: Reviewed in EMR ALLERGIES: Reviewed in EMR ---- ---- PHYSICAL EXAM: General: Well developed. Well nourished. Appears comfortable and in no apparent distress. Skin: Warm. Dry. Intact. No systemic rashes or lesions. Eyes: Pupils equally round. Extra-ocular motions intact. Clear sclera. HEAD: Atraumatic. Normo-cephalic. ENT: Bilateral TMs are pearly painter with good cone of light. Auditory canals are clear. Nasal mucosa, septum, and turbinates normal. Oropharynx clear. CV: No murmurs, rubs, or gallops appreciated. No pedal edema. Radial pulses 2+ bilaterally. Respiratory: Nonlabored breathing. Speaks in full sentences. Clear to auscultation bilaterally. CHEST: Chest is nontender to palpation. Chest rise is equal bilaterally. No signs of trauma. GI: Soft. Non-tender. Normoactive bowel sounds 4 quadrants. Non-distended. No rebound or guarding. : No CVA tenderness or suprapubic pain. MSK: No midline spinal tenderness. Moves all extremities with normal range of motion and muscle strength. No calf pain or palpable cords. Distal extremities with brisk cap refill and sensation intact. Neuro: Alert. Oriented. Cranial nerves II - XII grossly intact. Speech is fluent. Psych: Kempt appearance. Maintains eye contact. Cooperative. Lymphatic: No adenopathy. ---- ---- [Imaging: Imaging ordered. It was independently reviewed and interpreted by the attending ED physician. Prior to disposition, the radiologists impression(s) were reviewed.] ---- ---- Hospital Course / Medical Decision Making: The patient was seen and examined by the nurse practitioner, Radha Jones. The patient does not have any evidence of otitis media, sinusitis, pharyngitis, or meningitis. He was nontoxic in appearance. COVID testing was performed and results are pending at the time of dictation. The patient was instructed on how to find his results online. He is to provide symptomatic care. The patient is to follow up with their primary care physician as needed. The patient is to return to the ED worse in any way. The patient was discharged in stable condition with computer discharge instructions given. Diagnostic impression: COVID exposure Condition at disposition: Stable. The attending ED physician agrees with the plan. Disclaimer: This note was dictated by speech recognition. Minor errors in chilling hood operator may be present. HISTORY OF PRESENTING ILLNESS FAN is a 35 year old Male and was seen by nj at 06-Dec-2020 21:09 for a chief complaint of (covid s/s began 12/03) . Triage Information: Most recent Vital Sign Value Date Temp (F): 99.8 12-06-2020 21:24 Temp (C): 37.6 12-06-2020 21:24 Heart Rate (beats/min): 112 12-06-2020 21:24 Respirations (breaths/min): 20 12-06-2020 21:24 SpO2 (%): 96 12-06-2020 21:24 BP Systolic (mm Hg): 93 12-06-2020 21:24 BP Diastolic (mm Hg): 72 12-06-2020 21:24 PAST MEDICAL HISTORY ATTESTATION: I have reviewed and confirmed nurse's/medic's notes for patient's medications, allergies, and medical, surgical, family and social history ALLERGIES/INTOLERAN TAMMIE: No Known Allergies HEALTH HISTORY: No documented data. O (more content not included)... Normal [facility] CORONAVIRUS 2019 BY PCRon Lab Specimen Source Nasal, Nasopharyngeal Normal [facility] Comment on above: Order Comment: COVID CALLED TO [facility], 12/07/2020 15:39 Performed By: #### C OV19 #### [facility] [address] [place] [address] DATE OF SYMPTOM ONSET [[id number]]? [id number] Normal [facility] Comment on above: Order Comment: COVID CALLED TO B[facility] 12/07/2020 15:39 Performed By: #### C OV19 #### [facility] [id number] [place] [address] Triage - EDon 12-06-2020 Triage - ED Quick Triage: The patient and/or guardian verbally acknowledges placement for services into the following (when Urgent Care Service hours are operating):emergenc y department Chart Review: ARRIVAL INFORMATION Mode of Arrival: private vehicle CHIEF COMPLAINT FAN THOMAS is a Male patient with a chief complaint of (covid s/s began 12/03). Triage Date/Time: 06-Dec-2020 21:24 Pain Rating (0-10): 0 = None Vital Signs: Temperature: 99.8F ( 37.6C) Blood Pressure: 93/72 Mean: Heart Rate: 112 Respiratory Rate: 20 Pulse Oximetry: 96% on room air, no respiratory support. Height: 5 feet 10 inches. 177.8 CM Weight: 209.4 pounds. Calculated 95.0 kg. Calculated BMI (kg/m2): 30.051 Calculated BSA (m2) 2.17 Kay Coma Scale: Best Eye Response: (E4) spontaneous Best Motor Response: (M6) obeys commands Best Verbal Response: (V5) oriented Mercer Score: 15 Cough lasting greater than 3 weeks: no Allergies: no Mask applied: yes Patient has homicidal thoughts: no ANN: 4 Risk Screens Suicide Risk Screen In the Past Month: Have you wished you were or wished you could go to sleep and not wake up no In the Past Month: Have you had any actual thoughts of killing yourself no In Your Lifetime: Have you ever done anything, started to do anything, or prepared to do anything to end your life no Blackmon Fall Scale Screening Has the patient fallen before (or is the patient in the ED as a result of a fall) has not had a fall Does the patient have an impaired gait does not have impaired gait Is the patient cognitively impaired not cognitively impaired Interventions: Blackmon Fall Interventions: LOW INTERVENTIONS: *patient oriented to surroundings and call system, * patient/family falls education completed and documented, *patients fall status communicated during bedside handoff, *whiteboard updated, *mode of toileting discussed with patient, *bed in low position with brakes locked, *call light in reach, * non-skid footwear TRAVEL HISTORY Travel History Coronavirus Screening: positive for exposure, positive for symptoms and congregate living Coronavirus Screening Details: sob congestion bodyaches fatigue PAIN Pain Scale Used: FABIANO Pain Rating (0-10): 0 = None Past Medical History: Past Medical History Reviewedno Electronic Signatures: Naheed Carrera (RN) (Signed 06-Dec-2020 21:29) Authored: Quick Triage, Risk Screens, Pain, Chart Review, Past Medical History Last Updated: 06-Dec-2020 21:29 by Naheed Carrera (RN) [facility] CNOVon 01-08-2019 CNOV Office Visit ([facility]) ---- FAN THOMAS ([id number]) 1985 M Date Time Provider Department 01/08/19 6:45 PM JAE SUAREZ [facility] During your visit today, we recorded the following information about you: Temperature Pulse Respiration Blood pressure 98.7 degrees 67/minute 18/minute 112/80 Weight 90.7 kg Jae Suarez MD 01/08/2019 7:16 PM Signed Patient presents with: Sore Throat Cough HPI: Feeling sick for almost 2 weeks. Most cold symptoms are better, but his throat is not improving. Positive symptoms: Cough, Sore throat, hurts to swallow, Nasal Congestion, some fatigue Negative symptoms: Post nasal drainage, Fever, Chills, malaise, OTC: Ibuprofen, afrin (intermittently), nyquil, dayquil PAST MEDICAL HISTORY Diagnosis Date - Depression MEDICATIONS: Current Outpatient Medications: venlafaxine HCl (EFFEXOR XR ORAL) Take by mouth. No current facility-administer ed medications for this visit. ALLERGIES: ALLERGIES No Known Allergies VITALS: BP 112/80 Pulse 67 Temp 37.1 ?C (98.7 ?F) (Left Tympanic) Resp 18 Wt 90.7 kg (200 lb) SpO2 99% PHYSICAL EXAM: GEN: mildly ill appearing HEENT: PERRL, EOMI, conjunctiva clear Ears: canals clear, TMs without erythema, bulge, or effusion Sinuses: non-tender frontal sinus, non-tender maxillary sinuses Throat: moist mucous membranes, 2+ tonsils, mild erythema, no exudate, left upper tonsillolith Neck: supple, no thyromegaly, no lymphadenopathy HEART: regular rate and rhythm, no murmurs LUNGS: clear to auscultation, no wheezes or crackles, no increased WOB ASSESSMENT/PLAN: 1. Sore throat - ICD9: 462, ICD10: J02.9 - RAPID STREP TEST B/O - negative. Lingering non-strep sore throat. Discussed alternate causes such as mono, reflux, post-nasal drainage. Continue supportive care. Seek ER evaluation for difficulty breathing or swallowing. Jae Suarez MD Referring Provider: SELF [200] Allergies As of Date: 01/08/2019 (No Known Allergies) Date Reviewed: 01/08/2019 Reviewed by: Yoli Phillips Ma - Fully Assessed Reason for Visit: Sore Throat [200] Cough [28] Primary Visit Diagnosis:Sore throat [J02.9] Order(s):RAPID STREP TEST B/O [[id number]] Order #: [id number] Prescriptions as of 01/08/2019 Sig: EFFEXOR XR ORAL Take by mouth. Problem List As Of Date 01/08/2019 Noted Resolved Contusion of globe of left eye [S05.12XA] INVALID FOR* Vitreous floaters of both eyes [H43.393] INVALID FOR* Medications Discontinued During This Encounter buPROPion XL (WELLBUTRIN XL) 150 mg * 180 * 3 07/09/2014 01/08/2019 Route: ORAL Sig: Take 1 tablet by mouth twice daily. Disc: Course of therapy completed Encounter Status:Closed by JAE SUAREZ MD on 01/08/19 Normal [facility] PROGRESSon 01-08-2019 Protein mass conc HNO ID: [id number] Author: Jae Suarez Service: ? Author Type: Physician Type: Progress Notes Filed: 01/08/2019 7:16 PM Note Text: Patient presents with: Sore Throat Cough HPI: Feeling sick for almost 2 weeks. Most cold symptoms are better, but his throat is not improving. Positive symptoms: Cough, Sore throat, hurts to swallow, Nasal Congestion, some fatigue Negative symptoms: Post nasal drainage, Fever, Chills, malaise, OTC: Ibuprofen, afrin (intermittently), nyquil, dayquil PAST MEDICAL HISTORY Diagnosis Date - Depression MEDICATIONS: Current Outpatient Medications: venlafaxine HCl (EFFEXOR XR ORAL) Take by mouth. No current facility-administer ed medications for this visit. ALLERGIES: ALLERGIES No Known Allergies VITALS: BP 112/80 Pulse 67 Temp 37.1 ?C (98.7 ?F) (Left Tympanic) Resp 18 Wt 90.7 kg (200 lb) SpO2 99% PHYSICAL EXAM: GEN: mildly ill appearing HEENT: PERRL, EOMI, conjunctiva clear Ears: canals clear, TMs without erythema, bulge, or effusion Sinuses: non-tender frontal sinus, non-tender maxillary sinuses Throat: moist mucous membranes, 2+ tonsils, mild erythema, no exudate, left upper tonsillolith Neck: supple, no thyromegaly, no lymphadenopathy HEART: regular rate and rhythm, no murmurs LUNGS: clear to auscultation, no wheezes or crackles, no increased WOB ASSESSMENT/PLAN: 1. Sore throat - ICD9: 462, ICD10: J02.9 - RAPID STREP TEST B/O - negative. Lingering non-strep sore throat. Discussed alternate causes such as mono, reflux, post-nasal drainage. Continue supportive care. Seek ER evaluation for difficulty breathing or swallowing. Jae Suarez MD Normal [facility] Vital Signs Date Time Vital Sign Value Performing Clinician Facility 12-10-2024 14:48-0500 Body height 177.8 cm William Thomae DO Work Phone: [facility] 12-10-2024 14:48-0500 Body mass index (BMI) [Ratio] 25.6 kg/m2 William Thomae DO Work Phone: [facility] 12-10-2024 14:48-0500 Body weight 80.92 kg William Thomae DO Work Phone: [facility] 12-10-2024 14:48-0500 Diastolic blood pressure 81 mm[Hg] William Thomae DO Work Phone: [facility] 12-10-2024 14:48-0500 Heart rate 85 /min William Thomae DO Work Phone: [facility] 12-10-2024 14:48-0500 Respiratory rate 16 /min William Thomae DO Work Phone: [facility] 12-10-2024 14:48-0500 SaO2% (BldA) [Mass fraction] 98 % William Thomae DO Work Phone: [facility] 12-10-2024 14:48-0500 Systolic blood pressure 119 mm[Hg] William Thomae DO Work Phone: [facility] 09-11-2024 14:54-0500 Body height 177.8 cm Xiang Rodriguez MD Work Phone: [facility] 09-11-2024 14:54-0500 Body mass index (BMI) [Ratio] 27.38 kg/m2 Xiang Rodriguez MD Work Phone: [facility] 09-11-2024 14:54-0500 Body weight 86.55 kg Xiang Rodriguez MD Work Phone: [facility] 09-11-2024 14:54-0500 Diastolic blood pressure 74 mm[Hg] Xiang Rodriguez MD Work Phone: [facility] 09-11-2024 14:54-0500 Heart rate 87 /min Xiang Rodriguez MD Work Phone: [facility] 09-11-2024 14:54-0500 SaO2% (BldA) [Mass fraction] 96 % Xiang Rodriguez MD Work Phone: [facility] 09-11-2024 14:54-0500 Systolic blood pressure 116 mm[Hg] Xiang Rodriguez MD Work Phone: [facility] 08-12-2024 15:33-0400 Body mass index (BMI) [Ratio] 29.41 kg/m2 Corey Santiago MD Work Phone: [facility] 08-12-2024 15:33-0400 Body weight 92.99 kg Corey Santiago MD Work Phone: [facility] 08-12-2024 15:33-0400 Diastolic blood pressure 62 mm[Hg] Corey Santiago MD Work Phone: [facility] 08-12-2024 15:33-0400 Heart rate 71 /min Corey Santiago MD Work Phone: [facility] 08-12-2024 15:33-0400 Systolic blood pressure 132 mm[Hg] Corey Santiago MD Work Phone: [facility] 06-17-2024 15:40-0400 Body mass index (BMI) [Ratio] 28.84 kg/m2 Corey Santiago MD Work Phone: [facility] 06-17-2024 15:40-0400 Body weight 91.17 kg Corey Santiago MD Work Phone: [facility] 06-17-2024 15:40-0400 Diastolic blood pressure 74 mm[Hg] Corey Santiago MD Work Phone: [facility] 06-17-2024 15:40-0400 Respiratory rate 16 /min Corey Santiago MD Work Phone: [facility] 06-17-2024 15:40-0400 Systolic blood pressure 126 mm[Hg] Corey Santiago MD Work Phone: [facility] 03-06-2024 15:36-0400 Body height 177.8 cm Xiang Rodriguez MD Work Phone: [facility] 03-06-2024 15:36-0400 Body mass index (BMI) [Ratio] 29.56 kg/m2 Xiang Rodriguez MD Work Phone: [facility] 03-06-2024 15:36-0400 Body weight 93.44 kg Xiang Rodriguez MD Work Phone: [facility] 03-06-2024 15:36-0400 Diastolic blood pressure 78 mm[Hg] Xiang Rodriguez MD Work Phone: [facility] 03-06-2024 15:36-0400 Heart rate 78 /min Xiang Rodriguez MD Work Phone: [facility] 03-06-2024 15:36-0400 SaO2% (BldA) [Mass fraction] 99 % Xiang Rodriguez MD Work Phone: [facility] 03-06-2024 15:36-0400 Systolic blood pressure 126 mm[Hg] Xiang Rodriguez MD Work Phone: [facility] 02-26-2024 07:43-0400 Body mass index (BMI) [Ratio] 29.84 kg/m2 Corey Santiago MD Work Phone: [facility] 02-26-2024 07:43-0400 Body weight 94.35 kg Corey Santiago MD Work Phone: [facility] 02-26-2024 07:43-0400 Respiratory rate 16 /min Corey Santiago MD Work Phone: [facility] 01-31-2024 13:47-0400 Body height 177.8 cm Xiang Rodriguez MD Work Phone: [facility] 01-31-2024 13:47-0400 Body mass index (BMI) [Ratio] 29.92 kg/m2 Xiang Rodriguez MD Work Phone: [facility] 01-31-2024 13:47-0400 Body weight 94.58 kg Xiang Rodriguez MD Work Phone: [facility] 01-31-2024 13:47-0400 Diastolic blood pressure 82 mm[Hg] Xiang Rodriguez MD Work Phone: [facility] 01-31-2024 13:47-0400 Heart rate 62 /min Xiang Rodriguez MD Work Phone: [facility] 01-31-2024 13:47-0400 SaO2% (BldA) [Mass fraction] 99 % Xiang Rodriguez MD Work Phone: [facility] 01-31-2024 13:47-0400 Systolic blood pressure 110 mm[Hg] Xiang Rodriguez MD Work Phone: [facility] 01-22-2024 15:15-0400 Body height 177.8 cm Corey Santiago MD Work Phone: [facility] 01-22-2024 15:15-0400 Body mass index (BMI) [Ratio] 30.85 kg/m2 Corey Santiago MD Work Phone: [facility] 01-22-2024 15:15-0400 Body weight 97.52 kg Corey Santiago MD Work Phone: [facility] 01-22-2024 15:15-0400 Diastolic blood pressure 90 mm[Hg] Corey Santiago MD Work Phone: [facility] 01-22-2024 15:15-0400 Systolic blood pressure 143 mm[Hg] Corey Santiago MD Work Phone: [facility] 01-13-2024 10:01-0400 Body height 177.8 cm No Primary Care Physician [facility] 01-13-2024 10:01-0400 Body mass index (BMI) [Ratio] 28.7 kg/m2 No Primary Care Physician [facility] 01-13-2024 10:01-0400 Body temperature 98.7 [degF] No Primary Care Physician [facility] 01-13-2024 10:01-0400 Body weight 90.71 kg No Primary Care Physician [facility] 01-13-2024 10:01-0400 Diastolic blood pressure 86 mm[Hg] No Primary Care Physician [facility] 01-13-2024 10:01-0400 Heart rate 80 /min No Primary Care Physician [facility] 01-13-2024 10:01-0400 Respiratory rate 16 /min No Primary Care Physician [facility] 01-13-2024 10:01-0400 SaO2% (BldA) [Mass fraction] 99 % No Primary Care Physician [facility] 01-13-2024 10:01-0400 Systolic blood pressure 132 mm[Hg] No Primary Care Physician [facility] 06-19-2021 15:10-0400 Body height 177.8 cm Marty Moyer Work Phone: [facility] Work Phone: 06-19-2021 15:10-0400 Body mass index (BMI) [Ratio] 30.85 kg/m2 Marty Moyer Work Phone: LP[facility]Btqhxjg[facility]Xurx[facility] Work Phone: 06-19-2021 15:10-0400 Body surface area Derived from formula 2.15 m2 Marty Moyer Work Phone: FZ[facility]Hebwouu[facility]Dvptyng Work Phone: 06-19-2021 15:10-0400 Body weight 97.52 kg Marty Moyer Work Phone: YD-Ifdumpk-Sihhqae Work Phone: 06-19-2021 15:10-0400 Diastolic blood pressure 95 mm[Hg] Marty Moyer Work Phone: TP-Cgxmlue-Htyvsbj Work Phone: 06-19-2021 15:10-0400 Heart rate 88 /min Marty Moyer Work Phone: DT-Pcyphgr-Zdbrrrh Work Phone: 06-19-2021 15:10-0400 Systolic blood pressure 143 mm[Hg] Marty Moyer Work Phone: JN[facility]Qajedjd-Ltepffs Work Phone: 09-28-2019 18:32-0500 BMI (Body Mass Index) 30.45 kg/m2 Marty Cariasd [employer] Majeste [facility] Work Phone: 09-28-2019 18:32-0500 Body weight 96.25 kg Marty Cariasd [employer] [facility] Work Phone: 09-28-2019 18:32-0500 BP Diastolic 92 mm[Hg] Marty Cariasd -[employer] [facility] Work Phone: Comment on above: Location: E; 09-28-2019 18:32-0500 BP Systolic 134 mm[Hg] Marty Cariasd -[employer] [facility] Work Phone: Comment on above: Location: [facility]; 09-28-2019 18:32-0500 BSA (Body Surface Area) 2.14 m2 Marty Moyer -[employer] [facility] Work Phone: 09-28-2019 18:32-0500 Height 177.8 cm Markellrene Dakota [employer] [facility] Work Phone: 09-28-2019 18:32-0500 Pulse (Heart Rate) 72 /min Markelleugenemarly Moyer [employer] [facility] Work Phone: Encounters Encounter Date Encounter Type Care Provider Facility Start: 02-10-2025 End: 02-10-2025 Office outpatient visit 25 minutes Corey Santiago MD Work Phone: [facility] Comment on above: Male hypogonadism; Nocturia; Urinary frequency; Hx of prostatitis Start: 02-10-2025 End: 02-10-2025 ambulatory [facility] Start: 12-25-2024 End: 12-25-[address] William Velez DO Work Phone: [facility] Work Phone: Start: 12-25-2024 End: 12-25-[address] William Velez DO -Laboratory, Specimen Work Phone: Start: 12-25-2024 End: 12-25-2024 ambulatory William Velez Facility:[facility] Start: 12-19-2024 End: 12-19-[address] William Velez DO -Ultrasound, [facility] Work Phone: Start: 12-19-2024 End: 12-19-2024 ambulatory William Velez Facility:[facility] Start: 12-10-2024 End: 12-10-2024 Office outpatient new 45 minutes William Velez DO Work Phone: [facility] Comment on above: Dyspepsia (Primary D x); Gastroesophageal reflux disease with esophagitis without hemorrhage; RUQ pain Start: 12-10-2024 End: 12-10-2024 ambulatory [facility] Start: 09-11-2024 End: 09-11-2024 Office outpatient visit 15 minutes Xiang Rodriguez MD Work Phone: [facility] Comment on above: Gastroesophageal ref lux disease with esophagitis without hemorrhage Start: 09-11-2024 End: 09-11-2024 ambulatory [facility] Start: 08-12-2024 End: 08-12-2024 Office outpatient visit 25 minutes Corey Santiago MD Work Phone: [facility] Comment on above: Male hypogonadism; Nocturia; Hx of prostatitis Start: 08-12-2024 End: 08-12-2024 ambulatory [facility] Start: 08-05-2024 End: 08-05-2024 ambulatory XIANG Mcclain [facility] Start: 06-17-2024 End: 06-17-2024 Office outpatient visit 25 minutes Corey Santiago MD Work Phone: [facility] Comment on above: Male hypogonadism; Nocturia Start: 06-17-2024 End: 06-17-2024 ambulatory [facility] Start: 03-06-2024 End: 03-06-2024 Office outpatient visit 15 minutes Xiang Rodriguez MD Work Phone: [facility] Comment on above: Gastroesophageal ref lux disease with esophagitis without hemorrhage (Primary Dx) Start: 03-06-2024 End: 03-06-2024 ambulatory MYSTIC Jacob [facility] Start: 03-02-2024 End: 03-02-2024 Office outpatient visit 25 minutes Corey Santiago MD Work Phone: [facility] Comment on above: BPH with urinary obs truction; Nocturia; Urinary frequency; Urinary hesitancy; Male hypogonadism; Hx of prostatitis Start: 03-02-2024 End: 03-02-2024 ambulatory [facility] Start: 02-26-2024 End: 02-26-2024 [facility] Start: 02-26-2024 End: 02-26-2024 Office outpatient visit 25 minutes Corey Santiago MD Work Phone: [facility] Comment on above: Hx of prostatitis; BPH with urinary obstruction; Nocturia; Other fatigue Start: 01-31-2024 End: 01-31-2024 ambulatory MARTY MOYER [facility] Start: 01-31-2024 End: 01-31-2024 Office outpatient new 45 minutes Xiang Rodriguez MD Work Phone: [facility] Comment on above: Pain of upper abdome n (Primary Dx); Fatigue, unspecified type; Gastroesophageal reflux disease with esophagitis without hemorrhage Start: 01-22-2024 End: 01-22-2024 Office outpatient new 45 minutes Corey Santiago MD Work Phone: [facility] Comment on above: Urinary tract infect ion without hematuria, site unspecified (Primary Dx); Urinary hesitancy; Urinary frequency; Hx of prostatitis Start: 01-13-2024 End: 01-13-2024 Patient encounter procedure No Primary Care Physician [facility] Work Phone: Start: 01-13-2024 End: 01-13-2024 ambulatory No Primary Care Physician [facility] Work Phone: Start: 01-13-2024 End: 01-13-2024 ambulatory No Primary Care Physician Facility:[facility] Start: 11-28-2023 End: 11-28-2023 Patient encounter procedure No Primary Care Physician [facility] Work Phone: Start: 07-24-2021 AUDIT Marty Moyer Work Phone: [facility] Work Phone: Start: 06-19-2021 AUDIT Marty Moyer Work Phone: [facility] Work Phone: Start: 06-19-2021 Office outpatient ne w 45 minutes Marty Moyer Work Phone: [facility]Hdwawws[facility] DO Work Phone: Start: 01-08-2019 End: 01-09-2019 Patient encounter procedure [facility] [facility] Procedures Date Procedure Procedure Detail Performing Clinician Start: 12-19-[address] William Velez DO Work Phone: Start: 02-26-2024 TESTOSTERONE,FREE AND TOTAL MARTY MOYER Start: 01-31-2024 CBC panel - Blood by Automated count MARTY MOYER Start: 01-31-2024 Comprehensive metabo lic 2000 panel - Serum or Plasma MARTY MOYER Start: 01-31-2024 Cyanocobalamin vitamin b-12 MARTY MOYER Start: 01-31-2024 Lipase [Enzymatic activity/volume] in Serum or Plasma MARTY MOYER Start: 01-31-2024 Magnesium [Mass/volu me] in Serum or Plasma MARTY MOYER Start: 01-31-2024 Thyrotropin [Units/v olume] in Serum or Plasma MARTY CARIASD Start: 01-13-2024 Urine culture No Primar y Care Physician Operative procedure on hand Marty Cariasd Plan of Treatment Date Care Activity Detail Author Start: 2035 Zoster Vaccines (1 of 2) Zoste r Vaccines (1 of 2) [facility] Start: 08-12-2025 End: 02-10-2026 Testosterone [Mass/volume] in Serum or Plasma Testosterone Lab Routine Male hypogonadism Nocturia Urinary frequency Expected: 08/12/2025 (Approximate), Expires: 02/10/2026 [facility] Work Phone: Comment on above: Expected: 08/12/2025 (Approximate), Expires: 02/10/2026 Start: 06-28-2025 Influenza vaccination Influenz a Vaccine (Season Ended) [facility] Start: 05-12-2025 End: 02-10-2026 Hemoglobin and Hematocrit panel - Blood Hemoglobin and Hematocrit, Blood Lab Routine Male hypogonadism Nocturia Urinary frequency Expected: 05/12/2025 (Approximate), Expires: 02/10/2026 [facility] [[email or web address] Service Area Work Phone: Comment on above: Expected: 05/12/2025 (Approximate), Expires: 02/10/2026 Start: 05-12-2025 End: 02-10-2026 Prostate specific Ag [Mass/volume] in Serum or Plasma Prostate Specific Antigen Lab Routine Male hypogonadism Nocturia Urinary frequency Expected: 05/12/2025 (Approximate), Expires: 02/10/2026 [facility] Work Phone: Comment on above: Expected: 05/12/2025 (Approximate), Expires: 02/10/2026 Start: 02-10-2025 End: 02-10-2025 Patient encounter procedure 02/10/2025 3:30 PM EDT Office Visit [facility] [address] [facility] [address] [place] [id number] Corey Santiago MD [address] [place] [address] [facility] Start: 01-26-2025 End: 08-12-2025 Hemoglobin and Hematocrit panel - Blood Hemoglobin and Hematocrit, Blood Lab Routine Male hypogonadism Expected: 01/26/2025 (Approximate), Expires: 08/12/2025 [facility] Work Phone: Comment on above: Expected: 01/26/2025 (Approximate), Expires: 08/12/2025 Start: 01-26-2025 End: 08-12-2025 Prostate specific Ag [Mass/volume] in Serum or Plasma Prostate Specific Antigen Lab Routine Nocturia Expected: 01/26/2025 (Approximate), Expires: 08/12/2025 [facility] [[email or web address] Service Area Work Phone: Comment on above: Expected: 01/26/2025 (Approximate), Expires: 08/12/2025 Start: 01-26-2025 End: 08-12-2025 Testosterone [Mass/volume] in Serum or Plasma Testosterone Lab Routine Male hypogonadism Expected: 01/26/2025 (Approximate), Expires: 08/12/2025 [facility] Work Phone: Comment on above: Expected: 01/26/2025 (Approximate), Expires: 08/12/2025 Start: 12-14-2024 End: 12-14-2024 Patient encounter procedure 12/14/2024 4:30 PM EST Appointment [address] [address] [facility] Start: 12-10-2024 End: 03-09-2025 Helicobacter pylori Ag [Presence] in Stool by Immunoassay H. Pylori Antigen, Stool Lab Routine Dyspepsia Expected: 12/10/2024 (Approximate), Expires: 03/09/2025 [facility] Work Phone: Comment on above: Expected: 12/10/2024 (Approximate), Expires: 03/09/2025 Start: 12-10-2024 End: 12-10-2025 US Liver limited US abdomen limited liver Imaging Routine Dyspepsia RUQ pain Expected: 12/10/2024 (Approximate), Expires: 12/10/2025 [facility] [[email or web address]] Service Area Work Phone: Comment on above: Expected: 12/10/2024 (Approximate), Expires: 12/10/2025 Start: 11-12-2024 End: 08-12-2025 Hemoglobin and Hematocrit panel - Blood Hemoglobin and Hematocrit, Blood Lab Routine Male hypogonadism Expected: 11/12/2024 (Approximate), Expires: 08/12/2025 [facility] Work Phone: Comment on above: Expected: 11/12/2024 (Approximate), Expires: 08/12/2025 Start: 11-12-2024 End: 08-12-2025 Prostate specific Ag [Mass/volume] in Serum or Plasma Prostate Specific Antigen Lab Routine Nocturia Expected: 11/12/2024 (Approximate), Expires: 08/12/2025 [facility] Work Phone: Comment on above: Expected: 11/12/2024 (Approximate), Expires: 08/12/2025 Start: 11-12-2024 End: 08-12-2025 Testosterone [Mass/volume] in Serum or Plasma Testosterone Lab Routine Male hypogonadism Expected: 11/12/2024 (Approximate), Expires: 08/12/2025 [facility] Work Phone: Comment on above: Expected: 11/12/2024 (Approximate), Expires: 08/12/2025 Start: 09-11-2024 End: 09-11-2024 Patient encounter procedure [facility] Start: 08-12-2024 End: 08-12-2024 Patient encounter procedure 08/12/2024 3:15 PM EDT Office Visit [facility] [address] [id number] Corey Santiago MD [address] [place] [address] [facility] Start: 06-28-2024 COVID-19 Vaccine () COVID-19 Vaccine ( season) [facility] Start: 06-28-2024 COVID-19 Vaccine ( season) COVID-19 Vaccine () [facility] Start: 06-28-2024 Influenza vaccination [facility] Start: 06-17-2024 End: 06-17-2024 Patient encounter procedure 06/17/2024 3:45 PM EDT Office Visit [facility] [address] [facility] [address] [place] [phone] Corey Santiago MD [address] [place] [address] [facility] Start: 06-17-2024 End: 06-17-2025 Hemoglobin and Hematocrit panel - Blood Hemoglobin and Hematocrit, Blood Lab Routine Male hypogonadism Expected: 06/17/2024 (Approximate), Expires: 06/17/2025 [facility] Work Phone: Comment on above: Expected: 06/17/2024 (Approximate), Expires: 06/17/2025 Start: 06-17-2024 End: 06-17-2025 Prostate specific Ag [Mass/volume] in Serum or Plasma Prostate Specific Antigen Lab Routine Male hypogonadism Nocturia Expected: 06/17/2024 (Approximate), Expires: 06/17/2025 [facility] [[email or web address]] Service Area Work Phone: Comment on above: Expected: 06/17/2024 (Approximate), Expires: 06/17/2025 Start: 06-17-2024 End: 06-17-2025 Testosterone [Mass/volume] in Serum or Plasma Testosterone Lab Routine Male hypogonadism Expected: 06/17/2024 (Approximate), Expires: 06/17/2025 [facility] Work Phone: Comment on above: Expected: 06/17/2024 (Approximate), Expires: 06/17/2025 Start: 06-02-2024 End: 03-02-2025 Hemoglobin and Hematocrit panel - Blood Hemoglobin and Hematocrit, Blood Lab Routine Male hypogonadism Expected: 06/02/2024 (Approximate), Expires: 03/02/2025 [facility] Work Phone: Comment on above: Expected: 06/02/2024 (Approximate), Expires: 03/02/2025 Start: 06-02-2024 End: 03-02-2025 Prostate specific Ag [Mass/volume] in Serum or Plasma Prostate Specific Antigen Lab Routine Male hypogonadism Expected: 06/02/2024 (Approximate), Expires: 03/02/2025 [facility] [[email or web address]] Service Area Work Phone: Comment on above: Expected: 06/02/2024 (Approximate), Expires: 03/02/2025 Start: 06-02-2024 End: 03-02-2025 Testosterone [Mass/volume] in Serum or Plasma Testosterone Lab Routine Male hypogonadism Expected: 06/02/2024 (Approximate), Expires: 03/02/2025 [facility] Work Phone: Comment on above: Expected: 06/02/2024 (Approximate), Expires: 03/02/2025 Start: 03-06-2024 End: 03-06-2024 Patient encounter procedure 03/06/2024 3:40 PM EDT Office Visit [facility] [address] [place] [address] Xiang Rodriguez MD [address] [place] [address] [facility] Start: 03-02-2024 End: 03-02-2024 Telemedicine consultation with patient 03/02/2024 10:45 AM EDT Telemedicine [facility] [address] [place] [address] Corey Santiago MD [address] [place] [address] [facility] Start: 02-26-2024 End: 02-25-2025 Testosterone,Free and Total Testosterone,Free and Total Lab Routine Other fatigue Expected: 02/26/2024 (Approximate), Expires: 02/25/2025 [facility] Area Work Phone: Comment on above: Expected: 02/26/2024 (Approximate), Expires: 02/25/2025 Start: 02-26-2024 End: 02-26-2024 Patient encounter procedure 02/26/2024 7:45 AM EDT Office Visit [facility] [address] [facility] [address] [place] [phone] Corey Santiago MD [address] [place] [address] [facility] Start: 01-31-2024 End: 01-31-2024 ambulatory 01/31/2024 2:40 PM EDT Lab [facility] [place] [address] [place] [address] Fatigue, unspecified type; Pain of upper abdomen; Gastroesophageal reflux disease with esophagitis without hemorrhage [facility] [place] Comment on above: Fatigue, unspecified type; Pain of upper abdomen; Gastroesophageal reflux disease with esophagitis without hemorrhage Start: 01-31-2024 End: 01-30-2025 CBC panel - Blood by Automated count [facility] Work Phone: Comment on above: Expected: 01/31/2024 (Approximate), Expires: 01/30/2025 Start: 01-31-2024 End: 01-30-2025 Cobalamin (Vitamin B12) [Mass/volume] in Serum or Plasma [facility] Work Phone: Comment on above: Expected: 01/31/2024 (Approximate), Expires: 01/30/2025 Start: 01-31-2024 End: 01-30-2025 Comprehensive metabolic 2000 panel - Serum or Plasma [facility] Work Phone: Comment on above: Expected: 01/31/2024 (Approximate), Expires: 01/30/2025 Start: 01-31-2024 End: 01-30-2025 Lipase [Enzymatic activity/volume] in Serum or Plasma [facility] Work Phone: Comment on above: Expected: 01/31/2024 (Approximate), Expires: 01/30/2025 Start: 01-31-2024 End: 01-30-2025 Magnesium [Mass/volume] in Serum or Plasma [facility] Work Phone: Comment on above: Expected: 01/31/2024 (Approximate), Expires: 01/30/2025 Start: 01-31-2024 End: 01-30-2025 Thyrotropin [Units/volume] in Serum or Plasma [facility] Work Phone: Comment on above: Expected: 01/31/2024 (Approximate), Expires: 01/30/2025 Start: 06-28-2023 COVID-19 Vaccine () COVID-19 Vaccine () [facility] Start: 06-28-2023 Influenza vaccination Influenza Vacc ine (#1) [facility] Start: 11-18-2021 DTaP/Tdap/Td Vaccine s (3 - Td or Tdap) DTaP/Tdap/Td Vaccines (3 - Td or Tdap) [facility] Start: 08-09-2021 VASECTOMY, Provider: DENOMINATIONAL UROLOGY PROCEDURE RM,[id number], Status: Pen, Time: 4:15 PM VASECTOMY, Provider: DENOMINATIONAL UROLOGY PROCEDURE RM,[id number], Status: Pen, Time: 4:15 PM [id number] DO Work Phone: Start: 08-07-2021 VASECTOMY, Provider: DENOMINATIONAL UROLOGY PROCEDURE RM,[id number], Status: Pen, Time: 4:15 PM VASECTOMY, Provider: DENOMINATIONAL UROLOGY PROCEDURE RM,[id number], Status: Pen, Time: 4:15 PM [id number] Work Phone: Start: 02-18-2010 MMR Vaccines (1 of 1 - Standard series) MMR Vaccines (1 of 1 - Standard series) [facility] Start: 02-18-2010 Varicella vaccination Varicell a Vaccines (1 of 2 - 13+ 2-dose series) [facility] Start: 2007 DTaP/Tdap/Td Vaccine s (1 - Tdap) DTaP/Tdap/Td Vaccines (1 - Tdap) [facility] Start: 01-03-2005 IPV Vaccines (2 of 3 - Adult catch-up series) IPV Vaccines (2 of 3 - Adult catch-up series) [facility] Start: 2003 Diabetes mellitus screening Diabetes Screening [facility] Start: 2003 Hepatitis C screening Hepatitis C [facility] Start: 1991 Pneumococcal Vaccine : Pediatrics (0 to 5 Years) and At-Risk Patients (6 to 64 Years) (1 - PCV) Pneumococcal Vaccine: Pediatrics (0 to 5 Years) and At-Risk Patients (6 to 64 Years) (1 - PCV) [facility] Start: 1991 Pneumococcal Vaccine : Pediatrics (0 to 5 Years) and At-Risk Patients (6 to 64 Years) (1 of 2 - PCV) Pneumococcal Vaccine: Pediatrics (0 to 5 Years) and At-Risk Patients (6 to 64 Years) (1 of 2 - PCV) [facility] Start: 1986 MMR Vaccines (1 of 1 - Standard series) MMR Vaccines (1 of 1 - Standard series) [facility] Start: 1986 Varicella vaccination Varicell a Vaccines (1 of 2 - 2-dose childhood series) [facility] Start: 1985 Hepatitis B Vaccines (1 of 3 - 3-dose series) Hepatitis B Vaccines (1 of 3 - 3-dose series) [facility] Start: 1985 HIV screening HIV Screening [facility] Start: 1985 Lipid panel Lipid Panel [facility] Start: 1985 Yearly Adult Physical Yearly Adult P hysical [facility] Immunizations Immunization Date Immunization Notes Care Provider Ernie grubbs 08-14-2015 influenza virus vacc ine, unspecified formulation Corey Santiago MD Work Phone: [facility] Work Phone: 07-31-2012 influenza, seasonal, injectable, preservative free Xiang Rodriguez MD Work Phone: [facility] Work Phone: 11-18-2011 anthrax vaccine Xiang mccallum MD Work Phone: [facility] Work Phone: 11-18-2011 influenza, seasonal, injectable, preservative free Xiang Rodriguez MD Work Phone: [facility] Work Phone: 11-18-2011 tetanus toxoid, redu den diphtheria toxoid, and acellular pertussis vaccine, adsorbed Xiang Rodriguez MD Work Phone: [facility] Work Phone: 11-18-2011 typhoid capsular polysaccharide vaccine Xiang Rodriguez MD Work Phone: [facility] Work Phone: 09-02-2010 influenza virus vacc ine, split virus (incl. purified surface antigen) Xiang Rodriguez MD Work Phone: [facility] Work Phone: 01-21-2010 novel influenza-H1N1 -09, injectable Xiang Rodriguez MD Work Phone: [facility] Work Phone: 07-23-2009 influenza virus vacc ine, live, attenuated, for intranasal use Xiang Rodriguez MD Work Phone: [facility] Work Phone: 06-26-2007 hepatitis A and hepatitis B vaccine Xiang Rodriguez MD Work Phone: [facility] Work Phone: 04-19-2007 anthrax vaccine Xiang mccallum MD Work Phone: [facility] 03-27-2007 anthrax vaccine Xiang mccallum MD Work Phone: [facility] Work Phone: 09-10-2006 influenza virus vacc ine, live, attenuated, for intranasal use Xiang Rodriguez MD Work Phone: [facility] Work Phone: 09-10-2006 vaccinia (smallpox) vaccine Xiang Rodriguez MD Work Phone: [facility] Work Phone: 09-02-2006 anthrax vaccine Xiang mccallum MD Work Phone: [facility] Work Phone: 09-02-2006 hepatitis A and hepatitis B vaccine Xiang Rodriguez MD Work Phone: [facility] Work Phone: 09-02-2006 typhoid capsular polysaccharide vaccine Xiang Rodriguez MD Work Phone: [facility] Work Phone: 07-22-2005 hepatitis A vaccine, adult dosage Xiang Rodriguez MD Work Phone: [facility] Work Phone: 12-06-2004 hepatitis A and hepatitis B vaccine Xiang Rodriguez MD Work Phone: [facility] Work Phone: 12-06-2004 influenza virus vacc ine, split virus (incl. purified surface antigen) Xiang Rodriguez MD Work Phone: [facility] Work Phone: 12-06-2004 meningococcal polysaccharide vaccine (MPSV4) Xiang Rodriguez MD Work Phone: [facility] Work Phone: 12-06-2004 poliovirus vaccine, inactivated Xiang Rodriguez MD Work Phone: [facility] Work Phone: 12-06-2004 tetanus and diphther ia toxoids, adsorbed, preservative free, for adult use (2 Lf of tetanus toxoid and 2 Lf of diphtheria toxoid) Xiang Rodriguez MD Work Phone: [facility] Work Phone: 12-06-2004 poliovirus vaccine, unspecified formulation Corey Santiago MD Work Phone: [facility] Work Phone: Payers Date Payer Category Payer [employer] ( [employer] others) [id number] 2024 Self-pay [id number] 2023 [employer] ( and others) [id number] 2018 () [id number] 2018 [employer] ( and others) [id number] 2017 Managed Care (Private) [facility] [id number] 2017 Private Health Insurance [facility] [id number] 2017-Present [id number] JESS[place] Mcclendon [id number] 2017 Private Health Insurance [id number] 1985 Unknown [id number] .1245 1985 Unknown [id number] .1245 1985 Unknown [id number] .1245 1985 Unknown [id number] .1244 1985 Unknown [id number] .1244 1985 Unknown [id number] [id number] .1244 1985 Unknown [id number] .124 1985 Unknown [id number] [id number] .1244 1985 Unknown [id number] [id number] .1244 1985 Unknown [id number] .1244 Unknown Unknown [id number] .462 Unknown [id number] [id number] .462 Unknown [id number] .462 Unknown [id number] .462 Unknown [id number] .462 Social History Date Type Detail Facility Assertion Unknown if ever smoked [facility] Work Phone: Start: 01-31-2024 End: 09-11-2024 Former smokeless tobacco use Former smokeless tobacco use [facility] Start: 01-13-2024 Tobacco smoking stat us NHIS Unknown if ever smoked [facility] Start: 1985 Sex Assigned At Male [facility] Start: 01-13-2024 End: 01-22-2024 Tobacco smoking status NHIS Never smoked tobacco [facility] Work Phone: Start: 01-22-2024 Tobacco use and exposure Smokeless tobacco non-user [facility] Work Phone: Start: 1985 [facility] Start: 01-31-2024 End: 09-11-2024 Gender identity Not on file [facility] Start: 01-12-2024 End: 12-10-2024 Exposure to SARS-CoV-2 (event) Not sure [facility] Start: 09-11-2024 End: 12-10-2024 Alcoholic beverage intake Ex-drinker (finding) [facility] Work Phone: Start: 01-07-2025 Sex Male (finding) [facility] Medical Equipment Procedure Code Equipment Code Equipment Origin al Text Equipment Identifier Dates Use for IM injections [id number] Start: 08-17-2024 End: 02-10-2025 Use for IM injections [id number] Start: 06-17-2024 End: 08-12-2024 Use for IM injections [id number] Start: 02-10-2025 Functional Status Date Assessment Result Facility NEGATED: Highlighted row Functional performance Functional status health issues are not documented [facility] Work Phone: Mental Status Date Assessment Result Facility NEGATED: Highlighted row Cognitive function [Interpretation] Cognitive status health issues are not documented [facility] Work Phone: Clinical Notes 01-22-2024 to 02-10-2025 Corey Santiago MD - 02/10/2025 3:15 PM Lenny Velez DO - 12/10/2024 3:00 PM Bin Rodriguez MD - 09/11/2024 3:00 PM Kimi Santiago MD - 08/12/2024 3:15 PM EDT Note Date & Type Note Facility 02-10-2025 History of Present illness Narrative Subjective Patient ID: Fan Thomas is a 39 y.o. male who presents for No chief complaint on file.. Virtual or Telephone Consent An interactive audio and video telecommunication system which permits real time communications between the patient (at the originating site) and provider (at the distant site) was utilized to provide this telehealth service. Verbal consent was requested and obtained from Fan Thomas on this date, 02/10/25 for a telehealth visit and the patient's location was confirmed at the time of the visit. HPI Patient is here for 6 month follow up for hx of hypogonadism. Patient is doing IM injections. Patient is giving 1/2ml q3-4 days. He was doing Xyosted prior. He feels much better with IM TRT. In his own words I feel great Patient does take OTC estrogen audi. Most recent Labs were done on 02/05/25. Prior T level 1074 and current T is 1152., H/H WNL, and PSA was 0.59. Prior, current 0.42 . T level was 403 on 03/20 before starting Xyosted. Patient would like to try IM injections.Denies urgency and frequency. Denies dysuria. Denies hematuria. Nocturia x1. He is taking Daily Cialis. Review of Systems Constitutional: Negative for chills and fever. HENT: Negative. Eyes: Negative. Respiratory: Negative for cough and shortness of breath. Cardiovascular: Negative for chest pain and leg swelling. Gastrointestinal: Negative for nausea. Endocrine: Negative. Genitourinary: Negative for difficulty urinating. Negative except for documented in HPI Allergic/Immunologic: Negative. Neurological: Alert & oriented X 3 Hematological: Denies blood thinners Psychiatric/Behavioral: Negative. Objective Physical Exam No PE done given the virtual nature of visit. Assessment/Plan Problem List Items Addressed This Visit ICD-10-CM Urinary frequency R35.0 Nocturia R35.1 Male hypogonadism E29.1 All available PSA values reviewed, Options discussed. Questions answered. Will follow since on TRT despite age LUTS are not bothersome Treatment options for ED reviewed. Cialis 5mg Rx refilled pros/cons of Testosterone replacement reviewed. Replacement options discussed. Questions answered. Available levels reviewed. T Rx given-Will stay at currrent dose F/U 6 months virtual with labs Corey Santiago MD 02/10/25 3:42 PM documented in this encounter [facility] Work Phone: 12-10-2024 History of Present illness Narrative Subjective Patient ID: Fan Thomas is a 39 y.o. male who presents for New Patient Visit (Pt presents today as a new patient with complaints of GERD. Pt states that last January Dr. Rodriguez prescribed him pantoprazole due to stomach pains and nausea. Pt states that medication relieved symptoms at the time, until he discontinued medication, once he discontinued medication, symptoms restarted. Pt denies any trouble swallowing. ). HPI patient was diagnosed with reflux disease approximately 1 year ago attempted discontinue proton pump inhibitor therapy in fall had severe worsening reflux to the point where he is referred for evaluation. He is seen today since resume PPI therapy is having no symptoms at this time denies any dyspepsia but continues to feel a fullness across his abdomen with eating and admits to early satiety. Denies any dysphagia or dyne aphasia no change in bowel movements. He is in the [employer] has had 2 deployments to [place]. No family history of esophageal or stomach cancer. Review of Systems Constitutional: Negative. HENT: Negative. Eyes: Negative. Respiratory: Negative. Cardiovascular: Negative. Gastrointestinal: Negative. Endocrine: Negative. Genitourinary: Negative. Musculoskeletal: Negative. Neurological: Negative. Hematological: Negative. Psychiatric/Behavioral: Negative. Objective Physical Exam Vitals and nursing note reviewed. Constitutional: Appearance: Normal appearance. HENT: Head: Normocephalic. Mouth/Throat: Mouth: Mucous membranes are moist. Pharynx: Oropharynx is clear. Eyes: Pupils: Pupils are equal, round, and reactive to light. Cardiovascular: Rate and Rhythm: Normal rate and regular rhythm. Heart sounds: Normal heart sounds. Pulmonary: Effort: Pulmonary effort is normal. Breath sounds: Normal breath sounds. Abdominal: General: Abdomen is flat. Bowel sounds are normal. Palpations: Abdomen is soft. Musculoskeletal: General: Normal range of motion. Cervical back: Normal range of motion and neck supple. Skin: General: Skin is warm and dry. Neurological: General: No focal deficit present. Mental Status: He is alert and oriented to person, place, and time. Psychiatric: Mood and Affect: Mood normal. Behavior: Behavior normal. Assessment/Plan Diagnoses and all orders for this visit: Dyspepsia - US abdomen limited liver; Future - H. Pylori Antigen, Stool; Future Gastroesophageal reflux disease with esophagitis without hemorrhage - Referral to Gastroenterology RUQ pain - US abdomen limited liver; Future Suspect recalcitrant heartburn or rebound hyperacidity after stopping PPI therapy recommend we check him from H. pylori discussed endoscopy versus stool testing he is elected stool testing of his bloating and right upper quadrant pain will arrange ultrasound and follow-up by telephone for results. If ultrasound is unremarkable and doing well with meds and no evidence of H. pylori would like to see him back in 4 months and attempt to wean off PPI therapy at that time William Velez DO 12/10/24 3:36 PM documented in this encounter [facility] Work Phone: 09-11-2024 History of Present illness Narrative Subjective Patient ID: Fan Thomas is a 39 y.o. male who presents for Follow-up (6 months follow GERD. ). HPI Has not been having any symptoms since she is used the pantoprazole for the last 6 months. Stopped it 2 days ago just to see what was happening, things are only had about a 2 but they have definitely come back since he has been off of it This was sort of's came from out of the blue roughly about 9 months ago. Not completely sure what started this. Could just be some gastritis or did he start with some significant reflux. Continue the pantoprazole Refer to Dr. Velez for possible scope. Review of Systems Gastrointestinal: Negative for abdominal pain, blood in stool, constipation, diarrhea and nausea. Objective BP 116/74 Pulse 87 Ht 1.778 m (5' 10) Wt 86.5 kg (190 lb 12.8 oz) SpO2 96% BMI 27.38 kg/m Physical Exam Constitutional: Appearance: Normal appearance. Skin: General: Skin is warm and dry. Neurological: General: No focal deficit present. Mental Status: He is alert and oriented to person, place, and time. Psychiatric: Mood and Affect: Mood normal. Behavior: Behavior normal. Judgment: Judgment normal. Assessment/Plan Problem List Items Addressed This Visit ICD-10-CM Gastroesophageal reflux disease with esophagitis without hemorrhage K21.00 Relevant Orders Referral to Gastroenterology documented in this encounter [facility] Work Phone: 08-12-2024 History of Present illness Narrative Subjective Patient ID: Fan Thomas is a 39 y.o. male. HPI Patient is here for 3 month follow up for hx of hypogonadism. He was switched to IM injections last visit. Patient is given 1/2ml q3-4 days. He was doing Xyosted prior. He feels much better with IM TRT. Patient does take OTC estrogen audi. Most recent Labs were done on 1074, H/H WNL, and PSA was 0.59. Prior T level was 403 on 03/20 before starting Xyosted. Patient would like to try IM injections.Denies urgency and frequency. Denies dysuria. Denies hematuria. Nocturia x1. He is taking Daily Cialis. Review of Systems Constitutional: Negative for chills and fever. HENT: Negative. Eyes: Negative. Respiratory: Negative for cough and shortness of breath. Cardiovascular: Negative for chest pain and leg swelling. Gastrointestinal: Negative for nausea. Endocrine: Negative. Genitourinary: Negative for difficulty urinating. Negative except for documented in HPI Allergic/Immunologic: Negative. Neurological: Alert & oriented X 3 Hematological: Denies blood thinners Psychiatric/Behavioral: Negative. Objective Physical Exam Vitals and nursing note reviewed. Constitutional: General: He is not in acute distress. Appearance: Normal appearance. Pulmonary: Effort: Pulmonary effort is normal. Abdominal: Tenderness: There is no abdominal tenderness. Genitourinary: Comments: Kidneys non palpable bilaterally Bladder non palpable or tender Scrotum no mass, No hydrocele Epididymis- No spermatocele. Non Tender. Testicles: No mass. Mild atrophy Urethra: No discharge Penis within normal limits... No lesions. circumcised Prostate - deferred Neurological: Mental Status: He is alert. Assessment/Plan Diagnoses and all orders for this visit: Male hypogonadism - Testosterone; Future - Hemoglobin and Hematocrit, Blood; Future Nocturia - Prostate Specific Antigen; Future pros/cons of Testosterone replacement reviewed. Replacement options discussed. Questions answered. Available levels reviewed. T rx refilled-continue current dosing All available PSA values reviewed, Options discussed. Questions answered. Diet changes for prostate health discussed and educational information given. Pros/Cons of prostate health supplements discussed. Treatment options for LUTS reviewed Continue Daily Cialis. Refills authorized Discussed timed voiding. Discussed fluid and caffeine intake Treatment options for ED reviewed. . F/U 6 months with LABS documented in this encounter [facility] Work Phone: 06-17-2024 History of Present illness Narrative Subjective Patient ID: Fan Thomas is a 38 y.o. male. HPI Patient is here for 3 month follow up for hx of hypogonadism. He was started on Xyosted and states he is feeling better, has more energy. No recent labs.. Prior T level was 403 on 03/20 before starting Xyosted. Patient would like to try IM injections.Denies urgency and frequency. Denies dysuria. Denies hematuria. Nocturia x1. He is taking Daily Cialis. Review of Systems Constitutional: Negative for chills and fever. HENT: Negative. Eyes: Negative. Respiratory: Negative for cough and shortness of breath. Cardiovascular: Negative for chest pain and leg swelling. Gastrointestinal: Negative for nausea. Endocrine: Negative. Genitourinary: Negative for difficulty urinating. Negative except for documented in HPI Allergic/Immunologic: Negative. Neurological: Alert & oriented X 3 Hematological: Denies blood thinners Psychiatric/Behavioral: Negative. Objective Physical Exam Vitals and nursing note reviewed. Pulmonary: Effort: Pulmonary effort is normal. Abdominal: Palpations: Abdomen is soft. Tenderness: There is no abdominal tenderness. Genitourinary: Comments: Kidneys non palpable bilaterally Bladder non palpable or tender Neurological: Mental Status: He is alert. Assessment/Plan Diagnoses and all orders for this visit: Male hypogonadism - Prostate Specific Antigen; Future - Testosterone; Future - Hemoglobin and Hematocrit, Blood; Future Nocturia - Prostate Specific Antigen; Future All available PSA values reviewed, Options discussed. Questions answered. Diet changes for prostate health discussed and educational information given. Pros/Cons of prostate health supplements discussed. Treatment options for LUTS reviewed Continue Cialis Rx given Discussed timed voiding. Discussed fluid and caffeine intake Treatment options for ED reviewed. Lifestyle change to help prevent UTIs discussed. Encouraged fluid intake. pros/cons of Testosterone replacement reviewed. Replacement options discussed. Questions answered. Available levels reviewed. discontinue Xyosted-Patient wants to try IM injections T Rx given 1ml IM/week F/U 2 months documented in this encounter [facility] Work Phone: 03-06-2024 History of Present illness Narrative Subjective Patient ID: Fan Thomas is a 38 y.o. male who presents for Follow-up (GERD , 1 mo fu ). HPI His labs were good Overall he is getting good results with the pantoprazole. He did miss 1 day and get a little bit of some upset stomach, but other than that the nausea and stomach upset are completely gone on the pantoprazole every day. No dysphagia melena or hematochezia. The thought might have been because he got nauseous to the naltrexone short acting pills, if the Vivitrol which was stopped a few months ago still may be causing some nausea with him. Also possibilities as developed reflux and some stomach irritation otherwise. At this point continue the pantoprazole every day office visit 6 months and we will reevaluate Interestingly enough, his has had some nausea for the last 2 weeks. They do have well water and they do share the same probiotic medication that they take, but there is no obvious reason why the 2 of them may end up having something Unifine causing her nausea. They do have children in the home, and they are not having any troubles. Review of Systems Respiratory: Negative for cough. Gastrointestinal: Positive for nausea. Negative for abdominal pain, blood in stool, constipation and diarrhea. Objective BP 126/78 Pulse 78 Ht 1.778 m (5' 10) Wt 93.4 kg (206 lb) SpO2 99% BMI 29.56 kg/m Physical Exam Constitutional: Appearance: Normal appearance. Skin: General: Skin is warm and dry. Neurological: General: No focal deficit present. Mental Status: He is alert and oriented to person, place, and time. Psychiatric: Mood and Affect: Mood normal. Behavior: Behavior normal. Judgment: Judgment normal. Assessment/Plan Problem List Items Addressed This Visit ICD-10-CM Gastroesophageal reflux disease with esophagitis without hemorrhage - Primary K21.00 documented in this encounter [facility] Work Phone: 03-02-2024 History of Present illness Narrative Virtual or Telephone Consent An interactive audio and video telecommunication system which permits real time communications between the patient (at the originating site) and provider (at the distant site) was utilized to provide this telehealth service. Verbal consent was requested and obtained from Fan Thomas on this date, 03/02/24 for a telehealth visit. Subjective Patient ID: Fan Thomas is a 38 y.o. male. HPI Patient is here for T level results. T level was Free testosterone 52, Total Testosterone 403 (03/20) Chronic LUT'S sx are mild and stable. Denies urgency and frequency. Denies dysuria. Denies hematuria. Nocturia x1. He is taking Daily Cialis. Review of Systems Constitutional: Negative for chills and fever. HENT: Negative. Eyes: Negative. Respiratory: Negative for cough and shortness of breath. Cardiovascular: Negative for chest pain and leg swelling. Gastrointestinal: Negative for nausea. Endocrine: Negative. Genitourinary: Negative for difficulty urinating. Negative except for documented in HPI Allergic/Immunologic: Negative. Neurological: Alert & oriented X 3 Hematological: Denies blood thinners Psychiatric/Behavioral: Negative. Objective Physical Exam No PE done given the virtual nature of visit. Assessment/Plan Diagnoses and all orders for this visit: BPH with urinary obstruction Nocturia Urinary frequency Urinary hesitancy All available PSA values reviewed, Options discussed. Questions answered. Diet changes for prostate health discussed and educational information given. Pros/Cons of prostate health supplements discussed. Treatment options for LUTS reviewed Continue Cialis Discussed timed voiding. Discussed fluid and caffeine intake Treatment options for ED reviewed. Lifestyle change to help prevent UTIs discussed. Encouraged fluid intake. pros/cons of Testosterone replacement reviewed. Replacement options discussed. Questions answered. Available levels reviewed. Xyosted RX given F/U 2-3 months with T level documented in this encounter [facility] Work Phone: 02-26-2024 History of Present illness Narrative Subjective Patient ID: Fan Thomas is a 38 y.o. male. HPI Patient is here for 1 month follow up. He was treated for UTI last visit and states he is feeling better. Chronic LUT'S sx are mild and stable. Denies urgency and frequency. Denies dysuria. Denies hematuria. Nocturia x1. He is taking Daily Cialis. Review of Systems Constitutional: Negative for chills and fever. HENT: Negative. Eyes: Negative. Respiratory: Negative for cough and shortness of breath. Cardiovascular: Negative for chest pain and leg swelling. Gastrointestinal: Negative for nausea. Endocrine: Negative. Genitourinary: Negative for difficulty urinating. Negative except for documented in HPI Allergic/Immunologic: Negative. Neurological: Alert & oriented X 3 Hematological: Denies blood thinners Psychiatric/Behavioral: Negative. Objective Physical Exam Vitals and nursing note reviewed. Pulmonary: Effort: Pulmonary effort is normal. Breath sounds: Normal breath sounds. Abdominal: Palpations: Abdomen is soft. Tenderness: There is no abdominal tenderness. Genitourinary: Comments: Kidneys non palpable bilaterally Bladder non palpable or tender Neurological: Mental Status: He is alert. Assessment/Plan Diagnoses and all orders for this visit: Hx of prostatitis BPH with urinary obstruction Nocturia Diet changes for prostate health discussed and educational information given. Pros/Cons of prostate health supplements discussed. Treatment options for LUTS reviewed Continue Cialois 5mg MG-refilled Discussed timed voiding. Discussed fluid and caffeine intake Treatment options for ED reviewed.-This is mild but Cialis has helped Lifestyle change to help prevent UTIs discussed. Encouraged fluid intake. pros/cons of Testosterone replacement reviewed. Replacement options discussed. Questions answered. Available levels reviewed. T level ordered F/U with T level virtual documented in this encounter [facility] Work Phone: 01-31-2024 History of Present illness Narrative Subjective Patient ID: Fan Thomas is a 38 y.o. male who presents for Establish Care (CHRONIC NAUSEA x1mo). HPI Off-and-on nausea that started about 3 weeks ago. Does get worse when he eats, no change with a bowel movement or urine nation. Occasionally it does bother him a little bit if he pushes on the upper part of his belly. He started some omeprazole in the morning he does not always eat after taking it, but it has consistently helped with his nausea but the nausea has not gone away. If it still bothers him later in the day he try some Pepcid and get some short-term relief from that also. No persistent diarrhea constipation or blood in the stool. Possibly separate issue, is he had some urinary retention for which she went to [facility] thought to have a UTI had a problem with the Cipro saw Dr. Santiago switched to Bactrim and it seems to be helping with those issues. The nausea has not seemed to change with either of those treatments. [facility]. He did not seem to have any nausea at the beginning but may be toward the end of the shot he did. He did not repeat it this month. He did have significant nausea in the past with oral naltrexone. Also asked about stress, he has had troubles with stress in the past, but he feels in the last year his stress is good. He has not drank any alcohol in a few months. On exam no CVA tenderness bilaterally, mild tenderness to palpation without any rebound upper part of the abdomen right and left upper quadrant. Labs Zofran as needed Stop omeprazole Start pantoprazole Finish the antibiotic from Dr. Santiago No office visit set yet. Review of Systems Constitutional: Positive for fatigue. Negative for chills and fever. HENT: Negative for hearing loss. Eyes: Negative for visual disturbance. Respiratory: Positive for cough and shortness of breath. Cardiovascular: Negative for chest pain and palpitations. Gastrointestinal: Positive for abdominal pain and nausea. Negative for blood in stool, constipation, diarrhea and vomiting. Endocrine: Negative for cold intolerance, heat intolerance and polydipsia. Genitourinary: Positive for frequency. Negative for difficulty urinating. Musculoskeletal: Positive for neck pain. Negative for arthralgias and myalgias. Skin: Negative for rash. Neurological: Positive for headaches. Negative for dizziness. Psychiatric/Behavioral: Negative for sleep disturbance. The patient is not nervous/anxious. Objective BP 110/82 Pulse 62 Ht 1.778 m (5' 10) Wt 94.6 kg (208 lb 8 oz) SpO2 99% BMI 29.92 kg/m Physical Exam Constitutional: Appearance: Normal appearance. HENT: Head: Normocephalic and atraumatic. Cardiovascular: Rate and Rhythm: Normal rate and regular rhythm. Heart sounds: Normal heart sounds. Pulmonary: Effort: Pulmonary effort is normal. Breath sounds: Normal breath sounds. Abdominal: Palpations: Abdomen is soft. There is no mass. Tenderness: There is abdominal tenderness. There is no right CVA tenderness, left CVA tenderness, guarding or rebound. Skin: General: Skin is warm and dry. Neurological: General: No focal deficit present. Mental Status: He is alert and oriented to person, place, and time. Psychiatric: Mood and Affect: Mood normal. Behavior: Behavior normal. Thought Content: Thought content normal. Judgment: Judgment normal. Assessment/Plan Problem List Items Addressed This Visit ICD-10-CM Gastroesophageal reflux disease with esophagitis without hemorrhage K21.00 Relevant Medications pantoprazole (ProtoNix) 40 mg EC tablet Other Relevant Orders Magnesium Vitamin B12 Other Visit Diagnoses Codes Pain of upper abdomen - Primary R10.10 Relevant Orders CBC Comprehensive Metabolic Panel Lipase Magnesium Vitamin B12 Fatigue, unspecified type R53.83 Relevant Orders CBC Comprehensive Metabolic Panel Magnesium Vitamin B12 Thyroid Stimulating Hormone documented in this encounter [facility] Work Phone: 01-22-2024 History of Present illness Narrative Subjective Patient ID: Fan Thomas is a 38 y.o. male. HPI Patient is here for urinary issues. He states he has been having some urinary retention and extreme fatigue / nausea. Recently was put on cipro 01-13-24 due to UTI. Finished this antibiotic on the but feels his sx might be coming back. Has c/o cipro causing insomnia and heart palpitations. Some urgency and frequency. Nocturia x 2. No Hx of Stones. ED is not an issue Review of Systems Constitutional: Negative for chills and fever. HENT: Negative. Eyes: Negative. Respiratory: Negative for cough and shortness of breath. Cardiovascular: Negative for chest pain and leg swelling. Gastrointestinal: Negative for nausea. Endocrine: Negative. Genitourinary: Negative for difficulty urinating. Negative except for documented in HPI Allergic/Immunologic: Negative. Neurological: Alert & oriented X 3 Hematological: Denies blood thinners Psychiatric/Behavioral: Negative. Objective Physical Exam Vitals and nursing note reviewed. Constitutional: General: He is not in acute distress. Appearance: Normal appearance. Pulmonary: Effort: Pulmonary effort is normal. Abdominal: Tenderness: There is no abdominal tenderness. Genitourinary: Comments: Kidneys non palpable bilaterally Bladder non palpable or tender Scrotum no mass, No hydrocele Epididymis- No spermatocele. Non Tender. Testicles: No mass. WNL Urethra: No discharge Penis within normal limits... No lesions. CIrcumcised Prostate - symmetric, no nodules. Benign. Flat Seminal Vesicals: No mass. Sphincter tone: normal Neurological: Mental Status: He is alert. Assessment/Plan Diagnoses and all orders for this visit: Urinary tract infection without hematuria, site unspecified Urinary hesitancy Urinary frequency Hx of prostatitis All available PSA values reviewed, Options discussed. Questions answered.-will hold off Diet changes for prostate health discussed and educational information given. Pros/Cons of prostate health supplements discussed. Treatment options for LUTS reviewed Cialis 5mg Rx given Discussed timed voiding. Discussed fluid and caffeine intake Treatment options for ED reviewed. Bactrim Rx given NSAIDS Rx Given Lifestyle change to help prevent UTIs discussed. Encouraged fluid intake. F/U 3 weeks documented in this encounter [facility] Work Phone: Evaluation note No assessment inform ation available [facility] Work Phone: Evaluation note Diagnosis Urinary tract infection without hematuria, site unspecified- Primary Urinary hesitancy Urinary frequency Hx of prostatitis documented in this encounter [facility] Work Phone: [phone] note* Diagnosis Pain of upper abdomen- Primary Fatigue, unspecified type Gastroesophageal reflux disease with esophagitis without hemorrhage Fatigue, unspecified type Pain of upper abdomen Gastroesophageal reflux disease with esophagitis without hemorrhage documented in this encounter [facility] Work Phone: [phone] note* Diagnosis Hx of prostatitis BPH with urinary obstruction Hypertrophy of prostate with urinary obstruction and other lower urinary tract symptoms (LUTS) Nocturia Other fatigue documented in this encounter [facility] Work Phone: [phone] note* Diagnosis BPH with urinary obstruction Hypertrophy of prostate with urinary obstruction and other lower urinary tract symptoms (LUTS) Nocturia Urinary frequency Urinary hesitancy Male hypogonadism Other testicular hypofunction Hx of prostatitis documented in this encounter [facility] Work Phone: [phone] note* Diagnosis Gastroesophageal reflux disease with esophagitis without hemorrhage- Primary documented in this encounter [facility] Work Phone: [phone] note* Diagnosis Male hypogonadism Other testicular hypofunction Nocturia Hx of prostatitis documented in this encounter [facility] Work Phone: [phone] note* Diagnosis Gastroesophageal reflux disease with esophagitis without hemorrhage documented in this encounter [facility] Work Phone: [phone] note* Diagnosis Male hypogonadism Other testicular hypofunction Nocturia documented in this encounter [facility] Work Phone: [phone] note* Diagnosis Dyspepsia- Primary Dyspepsia and other specified disorders of function of stomach Gastroesophageal reflux disease with esophagitis without hemorrhage RUQ pain Abdominal pain, right upper quadrant documented in this encounter [facility] Work Phone: [phone] note* Diagnosis Male hypogonadism Other testicular hypofunction Nocturia Urinary frequency Hx of prostatitis documented in this encounter [facility] Work Phone: [phone] of Present illness NarrativePatient is here for vasectomy consult. Patient is and 3 children. LUT'S sx are mild and stable. Denies urgency and frequency. Denies dysuria. Denies hematuria. Nocturia x1. No medication for CHAN'TS.RJ-Whvtwgm-Ojxmqdae [facility] 232 DO Work Phone: reason for referral (narrative)* Consultation (Routine) - Authorized Specialty Diagnoses / Procedures Referred By Jaki mcclain Referred To Contact Primary Care Procedures Follow Up In Primary Care - Established Xiang Rodriguez MD [address] [place] [address] Referral ID Status Reason Start Date Expiration Date V isits Requested Visits Authorized [id number] Authorized 03/06/2024 03/06/2025 1 1 T [facility] Work Phone: Revgfy for referral (narrative)No reason for referral information [facility]WHol[facility] Work Phone: Summary Purpose Family History No Family History Records Found Grandparent Name Dates Details Family history of hypertensi on(V17.49, Z82.49) Status:Active Family history of myocardial infarction(V17.3, Z82.49) Status:Active Family history of lung cance r(V16.1, Z80.1) Status:Active Mother Name Dates Details No pertinent family history( V49.89, Z78.9) Status:Active Father Name Dates Details Family history of hypertensi on(V17.49, Z82.49) Status:Active Unknown Family Member Name Dates Details Family history of hypertensi on: Father, Grandparent(V17.49, Z82.49) Status:Active Family history of myocardial infarction: Grandparent(V17.3, Z82.49) Status:Active Family history of lung cance r: Grandparent(V16.1, Z80.1) Status:Active No pertinent family history: Mother(V49.89, Z78.9) Status:Active Unknown Family Member Name Dates Details Family history of hypertensi on: Father, Grandparent(V17.49, Z82.49) Status:Active Family history of myocardial infarction: Grandparent(V17.3, Z82.49) Status:Active Family history of lung cance r: Grandparent(V16.1, Z80.1) Status:Active No pertinent family history: Mother(V49.89, Z78.9) Status:Active Unknown Family Member Name Dates Details Family history of hypertensi on: Father, Grandparent(V17.49, Z82.49) Status:Active Family history of myocardial infarction: Grandparent(V17.3, Z82.49) Status:Active Family history of lung cance r: Grandparent(V16.1, Z80.1) Status:Active No pertinent family history: Mother(V49.89, Z78.9) Status:Active Advance Directives No Advanced Directives Records Found Advance Directive Response Recorded Date/ Time Living Will No May 14, 2021 8:51pm Power of Information Security Specialist No May 14 8:51pm Chief Complaint Vasectomy consult Chief Complaint and Reason for Visit Chief Complaint COVID TEST/ CAMELIA BR AND NAUSEA/FATIGUE COVID TEST/CAMELIA BRAND Chief Complaint Admit Date LIVER RUQ December 19, 2024 7:40am Additional Source Comments (unrecognized sect ion and content) No Status Records FoundNo Status Records FoundNo Status Records FoundNo Status Records FoundNo Status Records FoundNo Status Records FoundNo Status Records Found INFORMATION SOURCE (unrecogn ized section and content) DATE CREATED AUTHOR 01/10/2019 [facility] DATE CREATED AUTHOR AUTHOR'S ORGANIZ ATION 03/11/2021 [facility] DATE CREATED AUTHOR AUTHOR'S ORGANIZ ATION 08/10/2021 [facility] DATE CREATED AUTHOR AUTHOR'S ORGANIZ ATION 08/10/2024 [facility] DATE CREATED AUTHOR AUTHOR'S ORGANIZ ATION 01/10/2025 [facility] DATE CREATED AUTHOR AUTHOR'S ORGANIZ ATION 02/07/2025 [facility] DATE CREATED AUTHOR AUTHOR'S ORGANIZ ATION 02/25/[address] 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 Teams (unrecognized sec tion and content) Team Status: Active Member Role Status Dates Aiden Clements MD Family Provider Active No Primary Care Physician Primary Care Provider Active Team Status: Inactive Member Role Status Dates No Primary Care Physician Primary Care Provider, Refer ring Provider Active Philipp RICHARDS, PA Attending Provider Active Team Status: Inactive Member Role Status Dates No Primary Care Physician Primary Care Provider, Refer ring Provider Active MAURICE Villasenor Attending Provider Active Team Status: Inactive Member Role Status Dates No Primary Care Physician Primary Care Provider Active MAURICE Villasenor Attending Provider Active Consulting Practice Manager Relationship Specialty Start Date End Date Marty Moyer MD PCP - General 09/28/19 Consulting Practice Manager Relationship Specialty Start Date End Date Marty Moyer MD PCP - General 09/28/19 Consulting Practice Manager Relationship Specialty Start Date End Date Xiang Rodriguez MD [address] [place] [address] PCP - General Family Medicine 02/07/24 Consulting Practice Manager Relationship Specialty Start Date End Date Xiang Rodriguez MD [address] [place] [address] PCP - General Family Medicine 02/07/24 Consulting Practice Manager Relationship Specialty Start Date End Date Xiang Rodriguez MD [address] [place] [address] PCP - General Family Medicine 02/07/24 Consulting Practice Manager Relationship Specialty Start Date End Date Xiang Rodriguez MD PCP - General Family Medicine 02/07/24 Consulting Practice Manager Relationship Specialty Start Date End Date Xiang Rodriguez MD PCP - General Family Medicine 02/07/24 Consulting Practice Manager Relationship Specialty Start Date End Date Xiang Rodriguez MD [address] [id number] PCP - General Family Medicine 02/07/24 Consulting Practice Manager Relationship Specialty Start Date End Date Xiang Rodriguez MD [address] [id number] PCP - General Family Medicine 09/11/24 Team Status: Active Member Role Status Dates Dr. Xiang Rodriguez MD Primary Care Provider Active Team Status: Inactive Member Role Status Dates Dr. William Velez DO Attending Provider Active S tart: December 19, 2024 End: December 19, 2024 Dr. William Velez DO Referring Provider Active S tart: December 19, 2024 End: December 19, 2024 Dr. Xiang Rodriguez MD Primary Care Provider Active Start: December 19, 2024 End: December 19, 2024 Team Status: Inactive Member Role Status Dates Dr. Xiang Rodriguez MD Primary Care Provider Active Start: December 25, 2024 End: December 25, 2024 Dr. William Velez DO Attending Provider Active S tart: December 25, 2024 End: December 25, 2024 Dr. William Velez DO Referring Provider Active S tart: December 25, 2024 End: December 25, 2024 Consulting Practice Manager Relationship Specialty Start Date End Date Xiang Rodriguez MD [address] [id number] PCP - General Family Medicine 09/11/24 Goals (unrecognized section and content) Goals may be documented in a n alternate sectionGoals may be documented in an alternate section Reason for Visit (unrecogniz ed section and content) Reason Comments urgency with urination Reason Comments Establish Care CHRONIC NAUSEA x1mo Reason Comments UTI Reason Comments Hypogonadism Reason Comments Follow-up GERD , 1 mo fu Reason Comments 3 month with labs Reason Comments Follow-up 6 months follow GERD . Specialty Diagnoses / Procedures Referred By Jaki mcclain Referred To Contact Primary Care Procedures Follow Up In Primary Care - Established Xiang Rodriguez MD Phone: tel: fax: Referral ID Status Reason Start Date Expiration Date V isits Requested Visits Authorized [id number] Authorized 03/06/2024 03/06/2025 1 1 Reason Comments Follow-up Reason Comments New Patient Visit Pt presents today as a new patient with complaints of GERD. Pt states that last January Dr. Rodriguez prescribed him pantoprazole due to stomach pains and nausea. Pt states that medication relieved symptoms at the time, until he discontinued medication, once he discontinued medication, symptoms restarted. Pt denies any trouble swallowing. Specialty Diagnoses / Procedures Referred By Jaki mcclain Referred To Contact Gastroenterology Diagnoses Gastroesophageal reflux disease with esophagitis without hemorrhage Xiang Rodriguez MD [address] [address] Phone: tel: fax: Referral ID Status Reason Start Date Expiration Date Visits Requested Visits Authorized [id number] Authorized Specialty Services Required 09/11/2025 1 1 FOR RECORDS PERTAINING TO PATIENTS WHO ARE OR HAVE BEEN ENROLLED IN A CHEMICAL DEPENDENCY/SUBSTANCEABUSE PROGRAM, SOME INFORMATION MAY BE OMITTED. This clinical summary was aggregated from multiple sources. Caution should be exercised in using it in the provision of clinical care. This summary normalizes information from multiple sources, and as a consequence, information in this document may materially change the coding, format and clinical context of patient data. In addition, data may be omitted in some cases. CLINICAL DECISIONS SHOULD BE BASED ON THE PRIMARY CLINICAL RECORDS. [employer] provides no warranty or guarantee of the accuracy or completeness of information in this document.
[2025-04-03 10:15] LABS: AST(SGOT) 18 U/L (<=37); Alanine Aminotransfer ALT/SGPT 15 U/L (<=46); Cholesterol 222 mg/dL (<=200); High Density Lipoprotein 38 mg/dL; Low Density Lipoprotein Calc. 163 mg/dL; Triglycerides 104 mg/dL; Very Low Density Lipoprotein 21 mg/dL (5-40); cholesterol:hdl ratio screen 5.84
[2025-04-04 08:08] LABS: LDL, Direct 120295 173 mg/dL (0-99)
== END | disposition home or self-care (01) ==
LOC: LAB 09:00
PROVIDERS: PCP Family Medicine; Referring Provider Dermatology; Visit Provider Dermatology
DX: L70.0 Acne vulgaris (principal); B36.8 Other specified superficial mycoses; Z79.899 Other long term (current) drug therapy
CPT/HCPCS: 36415; 80061; 83721; 84450; 84460

== ENCOUNTER → 2025-06-12 | Outpatient (CLI) | payer OTHER, SELFPAY ==
--- OUTSIDE RECORDS SUMMARY | 2025-06-12 07:06 | XMS RPT_ITS | CCD ---
[facility] Organization [facility] Providers Care Family Services Worker Name Role Phone Marty Moyer Unavailable Unavailable Marty Moyer Unavailable Unavailable Marty Moyer Unavailable [phone] Unavailable Unavailable Care Physician, No Primary Primary Care Provider Unavailable Care Physician, No Primary Referring Provider Un available MAURICE Fortune Attending Provider MAURICE Larry Attending Provider Marty Moyer MD Primary Care Provider Xiang Rodriguez MD Primary Care Provider MARTY MOYER Primary Care Unavailable FURNESS, XIANG T Primary Care Unavailable FURNESS, XIANG T Primary Care Unavailable Xiang Rodriguez MD Primary Care Provider Xiang Rodriguez MD Primary Care Provider Dr. William Velez DO Attending Provider Dr. William Velez DO Referring Provider [phone] Dr. Xiang Rodriguez MD Primary Care Provider [...] Unavailable FURNESS, XIANG T Primary Care Unavailable Art KRUEGER, Dr. Cruz Attending Provider [phone] Dr. Anthony Cordova MD Referring Provider [phone] William Velez Referring Unavailable Michael Xiang Primary Care Unavailable William Velez Attending Unavailable Anthony Cordova Attending Unavailable Anthony Cordova Referring Unavailable Furness, Xiang Primary Care Unavailable William Velez Attending Unavailable William Velez Referring Unavailable Furness, Xiang Primary Care Unavailable Medications Current Medications Medication Drug Class(es) Dates Sig (Normalized) Sig (Original) ciprofloxacin 500 mg oral tablet (3 sources) Quinolone Antimicrobial Start: 01-13-2024 take 1 [...] days. 20 tablet 0 01/22/2024 02/01/2024 Active [place] (Nk) (3 sources) Start: 01-13-2024 [place] (Nk) Active January 13, 2024 12:00am ondansetron [...] Problem Classification Problem Date Documented Date Episodic/Chronic Alcohol-related disorders (4 sources) Alcoholism; Translations: [Other [...] male genital organs] Onset: 01-22-2024 01-22-2024 Episodic Other skin disorders (1 source) Acne vulgaris; Translations: [Acne vulgaris] Onset: 04-07-2025 Episodic Past or Other Problems Problem Classification Problem Date Documented Da te Episodic/Chronic Abdominal pain (15 sources) Upper abdominal pain; Translations: [Upper abdominal pain, unspecified] Onset: 01-31-2024 01-31-2024 Episodic Genitourinary symptoms and ill-defined conditions (20 sources) Delay when starting to pass urine; Translations: [Hesitancy of micturition] Onset: 01-22-2024 01-22-2024 Episodic Malaise and fatigue (4 sources) [...] Test Name Value Interpretation Reference Range Facility LDL, Directon 04-04-2025 Cholesterol in LDL [Mass/Vol] 173 mg/dL High 0-[address] [facility] Comment on above: Order Comment: Y Result Comment: Perf ormed at: - [facility] [address] [id number] Machine Sneller: Abebe Jones PhD, Phone: [phone] Performed By: #### L 501.4100, L3300.4490, L501.4405, L500.4100 #### [facility] [address] [place], [address] COMMENT TNP Normal . [facility] Comment on above: Order Comment: Y Performed By: #### L 501.4100, L3300.4490, L501.4405, L500.4100 #### [facility] [address] [place], [address] AST(SGOT)on 04-03-2025 AST [Catalytic activity/Vol] 18 U/L Normal <=[address] [facility] Comment on above: Performed By: #### L 501.4100, L3300.4490, L501.4405, L500.4100 #### [facility] [address] [place], [address] Alanine Aminotransferas (SGP T)on 04-03-2025 ALT [Catalytic activity/Vol] 15 U/L Normal <=[address] [facility] Comment on above: Performed By: #### L 501.4100, L3300.4490, L501.4405, L500.4100 #### [facility] [address] [place], [address] Calculated very low density lipoprotein (VLDL) cholesterol measurementOrdered By: Anthony Cordova on 04-03-2025 Calculated very low density lipoprotein (VLDL) cholesterol measurement 21 mg/dL 5-[address] [facility] Cholesterol in LDL Direct as say [Mass/Vol]Ordered By: Anthony Cordova on 04-03-2025 Cholesterol in LDL [Mass/Vol] 173 mg/dL High 0-[address] [facility] Comment on above: Performed at: [address] [id number] Director: Abebe Jones PhD, Phone: [phone] LDL calc ser/plasOrdered By: Anthony Cordova on 04-03-2025 Cholesterol in LDL [Mass/Vol] 163 mg/dL [facility] Comment on above: Ybqsjalwrw=994-460 m g/dL & Higher Sklf=425 mg/dL or greater Laboratory - Chemistry and C hemistry - challengeOrdered By: Anthony Cordova on 04-03-2025 AST [Catalytic activity/Vol] 18 U/L <[address] [facility] Laboratory - Miscellaneous t estsOrdered By: Anthony Cordova on 04-03-2025 Service comment (Unsp spec) [Interp] TNP [facility] Comment on above: Test not performed Lipid Profileon 04-03-2025 CHOL:HDL 5.[address] [facility] Comment on above: Performed By: #### L 501.4100, L3300.4490, L501.4405, L500.4100 #### [facility] [address] [place], [address] Cholesterol [Mass/Vol] 222 mg/dL High <=200 [facility] Comment on above: Result Comment: Chol esterol level, Desirable <200 mg/dL Borderline high cholesterol 200-239 mg/dL High cholesterol >=240 mg/dL Recommendations of the NCEP Adult Treatment Panel for the following risk-cutoff thresholds for the [place] population. Performed By: #### L 501.4100, L3300.4490, L501.4405, L500.4100 #### [facility] [address], [address] Cholesterol in HDL [Mass/Vol] 38 mg/dL Low [facility] Comment on above: Result Comment: Bekah onal Cholesterol Education Program (NCEP) guidelines: <40 mg/dL: Low HDL-cholesterol (major risk factor for CHD) >= 60 mg/dL: High HDL-cholesterol (negative risk factor for CHD) HDL-cholesterol is affected by a number of factors, e.g. smoking, exercise, hormones, sex and age. Performed By: #### L 501.4100, L3300.4490, L501.4405, L500.4100 #### [facility] [address] [place], [address] Cholesterol in LDL [Mass/Vol] 163 mg/dL Normal [facility] Comment on above: Result Comment: Bord hsjxek=028-961 mg/dL Higher Bmmk=350 mg/dL or greater Performed By: #### L 501.4100, L3300.4490, L501.4405, L500.4100 #### [facility] [address] [place], [address] Cholesterol in VLDL [Mass/Vol] 21 mg/dL Normal 5-[address] [facility] Comment on above: Performed By: #### L 501.4100, L3300.4490, L501.4405, L500.4100 #### [facility] [address] [place], [address] Triglyceride [Mass/Vol] 104 mg/dL Normal [facility] Comment on above: Result Comment: The drugs N-Acetylcysteine and Metamizole may falsely depress this assay. Normal range: <150 mg/dL Borderline High: 150-199 mg/dL High: 200-499 mg/dL Very High: >500 mg/dL Performed By: #### L 501.4100, L3300.4490, L501.4405, L500.4100 #### [facility] [address] [place], [address] Screening total cholesterol/ high density lipoprotein (HDL) cholesterol ratioOrdered By: Anthony Cordova on 04-03-2025 Cholesterol.total/Choles terol in HDL [Mass ratio] 5.84 {ratio} [facility] Serum or plasma alanine smith otransferase (ALT) measurementOrdered By: Anthony Cordova on 04-03-2025 ALT [Catalytic activity/Vol] 15 U/L <[address] [facility] Serum or plasma cholesterol in HDL measurement (mass/volume)Ordered By: Anthony Cordova on 04-03-2025 Cholesterol in HDL [Mass/Vol] 38 mg/dL Low >[address] [facility] Comment on above: National Cholesterol Education Program (NCEP) guidelines:<40 mg/dL: Low HDL-cholesterol (major risk factor for CHD)>= 60 mg/dL: High HDL-cholesterol (negative risk factor for CHD)HDL-cholesterol is affected by a number of factors, e.g. smoking, exercise, hormones, sex and age. Serum or plasma cholesterol measurement (mass/volume)Ordered By: Anthony Cordova on 04-03-2025 Cholesterol [Mass/Vol] 222 mg/dL High <201 [facility] Comment on above: Cholesterol level, D esirable <200 mg/dLBorderline high cholesterol 200-239 mg/dLHigh cholesterol >=240 mg/dLRecommendations of the NCEP Adult Treatment Panel for the following risk-cutoff thresholds for the [place] population. Triglycerides measurementOrd ered By: Anthony Cordova on 04-03-2025 Triglyceride [Mass/Vol] 104 mg/dL <199 [facility] Comment on above: The drugs N-Acetylcy steine and Metamizole may falsely depress this assay. Normal range: <150 mg/dLBorderline High: 150-199 mg/dLHigh: 200-499 mg/dLVery High: >500 mg/dL HEMOGLOBIN + HEMATOCRITon HEMATOCRIT Normal [facility] Comment on above: Order Comment: FASTI NG:NO FASTING: NO Performed By: #### 5 772, 286, 8052 #### [facility] [address] [facility], [address] [place] [address] Mail Sorting Supervisor: Dwight Randall MD HEMOGLOBIN Normal [facility] Comment on above: Order Comment: FASTI NG:NO FASTING: NO Performed By: #### 5 363, 873, 7998 #### [facility] [place] [address] Mail Sorting Supervisor: Dwight Randall MD PSA, TOTALon 02-06-2025 PSA, TOTAL 0.42 ng/mL Normal < OR = 4.00 [facility] Comment on above: Result Comment: The total PSA value from this assay system is standardized against the WHO standard. The test result will be approximately 20% lower when compared to the equimolar-standardized total PSA (Ann Yasmany). Comparison of serial PSA results should be interpreted with this fact in mind. This test was performed using the Siemens chemiluminescent method. Values obtained from different assay methods cannot be used interchangeably. PSA levels, regardless of value, should not be interpreted as absolute evidence of the presence or absence of disease. Performed By: #### 5 363, 873, 7998 #### [facility] [place] [address] Mail Sorting Supervisor: Dwight Randall MD TESTOSTERONE, TOTAL, MALES ( ADULT), IAon 02-06-2025 TESTOSTERONE, TOTAL, MALES (ADULT), IA 1152 ng/dL High 250-827 [facility] Comment on above: Performed By: #### 5 363, 873, 7998 #### [facility] [place] [address] Mail Sorting Supervisor: Dwight Randall MD H. PYLORI STOOL AGon 025 H PYLORI STL AG Negative Normal Negative [facility] Comment on above: Performed By: #### L 3100.1950 #### [facility] [address] [facility] [address] [place], [place], [address] H. pylori Ag IA Ql (Stl)Orde red By: William Velez on 12-25-2024 Stool Helicobacter pylori Antigen Negative Negative [facility] Stool Helicobacter pylori an tigen detection by immunoassayOrdered By: William Velez on 12-25-2024 H. pylori Ag IA Ql (Stl) Negative Negative [facility] Abdomen Limitedon 12-19-2024 Abdomen Limited [facility] [address] [place] [address] Abdomen Limited MR#: [id number] Acct: [id number] Name: FAN THOMAS Rep #: [id number] : 1985 M 39 From: Vasile Fitch MD PCP: Dr. Xiang Rodriguez MD Status: REG CLI Study: Abdomen Limited Date of Exam: 12/19/24 Exam# [id number] Ordering Dr: William Velez DO PROCEDURE: ULTRASOUND [...] William Velez DO; Dr. Xiang Rodriguez MD Chicken Tender: Signed Normal [facility] Hemoglobin and Hematocrit pa suzanna (Bld)on 08-05-2024 Hematocrit (Bld) [Volume fraction] 43.3 % Normal 41.0-52.0 [facility] Comment on above: Performed By: #### 2 4360-0 #### CONCHIS VELAZQUEZ ([id number]) [facility] ([facility]) [address] [place] [address] Hemoglobin (Bld) [Mass/Vol] 15.1 g/dL Normal 13.5-17.5 [facility] Comment on above: Performed By: #### 2 4360-0 #### CONCHIS VELAZQUEZ ([id number]) [facility] ([facility]) [address] [place] [address] Prostate specific Agon 08-05 Prostate specific Ag [Mass/Vol] 0.59 ng/mL Normal <=4.00 [facility] Comment on above: Order Comment: The F DA requires that the method used for PSA assay be reported to the physician. Values obtained with different assay methods must not be used interchangeably. This test was performed at [facility] using the Pretty in my Pocket (PRIMP) PSA assay is a two-site immunoenzymatic sandwich assay. The assay is approved for measurement of prostate-specific antigen (PSA)in serum and may be used in conjunction with a digital rectal examination in men 50 years and older as an aid in detection of prostate cancer. 2-Pemzy-rowqkqlvo inhibitors (e.g. Proscar, Finasteride, Avodart, Dutasteride and Josseline) for the treatment of BPH have been shown to lower PSA levels by an average of 50% after 6 months of treatment. Performed By: #### 2 857-1 #### CONCHIS VELAZQUEZ ([id number]) [facility] ([facility]) [address] [place] [address] Testosteroneon 08-05-2024 Testosterone [Mass/Vol] 1074 ng/dL High 240-1000 [facility] Comment on above: Order Comment: Nandr olone decanoate, 11 Beta-hydroxytestosterone, androstenedione, testosterone propionate and 34-fbac-ukidvqsnszek strongly cross react with this test method. Biotin interference may cause falsely elevated results. Patients taking a Biotin dose of up to 5 mg/day should refrain from taking Biotin for 24 hours before sample collection. Providers may contact their local laboratory for further information. Performed By: #### 2 986-8 #### BLANCA Dias ([id number]) [facility] [facility] ([facility]) [address] [place] [address] Testosterone Free/Testostero ne.total [Mass fraction]on 02-26-2024 Testosterone [Mass/Vol] 403 ng/dL Normal 250-1100 [facility] Comment on above: Result Comment: For additional information, please refer to http://education.Epic Playground.Tri-Medics/faq/ [email or web address] (This link is being provided for informational/ educational purposes only.) This test was developed and its analytical performance characteristics have been determined by [facility] [place], [place]. It has not been cleared or approved by the U.S. Food and Drug Administration. This assay has been validated pursuant to the CLIA regulations and is used for clinical purposes. Performed By: #### 1 5432-8 #### KENN SCOTT ([id number]) [address] [address] [address] [address] [place] Testosterone Free [Mass/Vol] 52.0 pg/mL Normal 35.0-155.0 [facility] Comment on above: Result Comment: This test was developed and its analytical performance characteristics have been determined by [facility] [place]. It has not been cleared or approved by the U.S. Food and Drug Administration. This assay has been validated pursuant to the CLIA regulations and is used for clinical purposes. Performed By: #### 1 5432-8 #### KENN SCOTT ([id number]) [address] [facility] [address] [place] CBC panel Auto (Bld)on 01-30 Erythrocyte distribution width (RBC) [Ratio] 12.8 % Normal 11.5-14.5 [facility] Comment on above: Performed By: #### 5 8410-2 #### CONCHIS VELAZQUEZ ([id number]) [facility] ([facility]) [address] [place] [address] Hematocrit (Bld) [Volume fraction] 42.8 % Normal 41.0-52.0 [facility] Comment on above: Performed By: #### 5 8410-2 #### CONCHIS VELAZQUEZ ([id number]) [facility] ([facility]) [address] [place] [address] Hemoglobin (Bld) [Mass/Vol] 14.4 g/dL Normal 13.5-17.5 [facility] Comment on above: Performed By: #### 5 8410-2 #### CONCHIS VELAZQUEZ ([id number]) [facility] ([facility]) [address] [place] [address]177 MCH (RBC) [Entitic mass] 29.1 pg Normal 26.0-34.0 [facility] Comment on above: Performed By: #### 5 8410-2 #### CONCHIS VELAZQUEZ ([id number]) [facility] ([facility]) [address] [place] [address] 21083 MCHC (RBC) [Mass/Vol] 33.6 g/dL Normal 32.0-36.0 [facility] Comment on above: Performed By: #### 5 8410-2 #### CONCHIS VELAZQUEZ ([id number]) [facility] ([facility]) [address] [place] [address]8945 MCV (RBC) [Entitic vol] 87 fL Normal 80-100 U [facility] Comment on above: Performed By: #### 5 8410-2 #### CONCHIS VELAZQUEZ ([id number]) [facility] ([facility]) [address] [place] [address]10[address] Nucleated RBC/100 WBC (Bld) [Ratio] 0.0 /100 WBCs Normal 0.0-0.0 [facility] Comment on above: Performed By: #### 5 8410-2 #### CONCHIS VELAZQUEZ ([id number]) [facility] ([facility]) [address] [place] [address] Platelets (Bld) [#/Vol] 254 x10*3/uL Normal 150-450 [facility] Comment on above: Performed By: #### 5 8410-2 #### CONCHIS VELAZQUEZ ([id number]) [facility] ([facility]) [address] [place] [address] 18339 RBC (Bld) [#/Vol] 4.95 x10*6/uL Normal 4.50-5.90 [facility] Comment on above: Performed By: #### 5 8410-2 #### CONCHIS VELAZQUEZ ([id number]) [facility] ([facility]) [address] [place] [address]4570 WBC (Bld) [#/Vol] 6.6 x10*3/uL Normal 4.4-11.3 [facility] Comment on above: Performed By: #### 5 8410-2 #### CONCHIS VELAZQUEZ ([id number]) [facility] ([facility]) [address] [place] [address] Cobalaminson 01-31-2024 Cobalamin (Vitamin B12) [Mass/Vol] 429 pg/mL Normal 211-911 [facility] Comment on above: Performed By: #### 2 132-9 #### CONCHIS VELAZQUEZ ([id number]) [facility] ([facility]) [address] [place] [address] 26558 Comprehensive metabolic 2000 panelon 01-31-2024 Albumin BCP dye [Mass/Vol] 5.1 g/dL High 3.4-5.0 [facility] Comment on above: Performed By: #### 2 4323-8 #### CONCHIS VELAZQUEZ ([id number]) [facility] ([facility]) [address] [place] [address] ALP [Catalytic activity/Vol] 44 U/L Normal 33-120 [facility] Comment on above: Performed By: #### 2 4323-8 #### CONCHIS VELAZQUEZ ([id number]) [facility] ([facility]) [address] [place] [address] ALT With P-5'-P [Catalytic activity/Vol] 46 U/L Normal 10-52 [facility] Comment on above: Result Comment: Maty ents treated with Sulfasalazine may generate falsely decreased results for ALT. Performed By: #### 2 4323-8 #### CONCHIS VELAZQUEZ ([id number]) [facility] ([facility]) [address] [place] [address] 64965 Anion gap [Moles/Vol] 9 mmol/L Low 10-20 [facility] Comment on above: Performed By: #### 2 4323-8 #### CONCHIS VELAZQUEZ ([id number]) [facility] ([facility]) [facility] [place] [address] AST With P-5'-P [Catalytic activity/Vol] 22 U/L Normal 9-39 [facility] Comment on above: Performed By: #### 2 4323-8 #### CONCHIS VELAZQUEZ ([id number]) [facility] ([facility]) [facility] [place] [address] Bilirubin [Mass/Vol] 0.5 mg/dL Normal 0.0-1.2 [facility] Comment on above: Performed By: #### 2 4323-8 #### CONCHIS VELAZQUEZ ([id number]) [facility] ([facility]) [address] [place] [address] Calcium [Mass/Vol] 9.5 mg/dL Normal 8.6-10.3 [facility] Comment on above: Performed By: #### 2 4323-8 #### CONCHIS VELAZQUEZ ([id number]) [facility] ([facility]) [address] [place] [address] Chloride [Moles/Vol] 104 mmol/L Normal 98-107 [facility] Comment on above: Performed By: #### 2 4323-8 #### CONCHIS VELAZQUEZ ([id number]) [facility] ([facility]) [address] [place] [address] CO2 [Moles/Vol] 29 mmol/L Normal 21-32 [facility] Comment on above: Performed By: #### 2 4323-8 #### CONCHIS VELAZQUEZ ([id number]) [facility] ([facility]) [address] [place] [address] Creatinine [Mass/Vol] 1.02 mg/dL Normal 0.50-1.30 [facility] Comment on above: Performed By: #### 2 4323-8 #### CONCHIS VELAZQUEZ ([id number]) [facility] ([facility]) [address] [place] [address] GFR/1.73 sq M.predicted MDRD (S/P/Bld) [Vol rate/Area] mL/min/{1.73_m2} Normal >60 [facility] Comment on above: Result Comment: Calc ulations of estimated GFR are performed using the 2020 CKD-EPI Study Refit equation without the race variable for the IDMS-Traceable creatinine methods. https://jasn.asnjournals.org/content/early//ASN.257 4692168 Performed By: #### 2 4323-8 #### CONCHIS VELAZQUEZ ([id number]) [facility] ([facility]) [address] [place] [address] 39294 Glucose [Mass/Vol] 81 mg/dL Normal 74-99 [facility] Comment on above: Performed By: #### 2 4323-8 #### CONCHIS VELAZQUEZ ([id number]) [facility] ([facility]) [address] [place] [address] 25932 Potassium [Moles/Vol] 4.4 mmol/L Normal 3.5-5.3 [facility] Comment on above: Performed By: #### 2 4323-8 #### CONCHIS VELAZQUEZ ([id number]) [facility] ([facility]) [address] [place] [address] 18610 Protein [Mass/Vol] 7.5 g/dL Normal 6.4-8.2 [facility] Comment on above: Performed By: #### 2 4323-8 #### CONCHIS VELAZQUEZ ([id number]) [facility] ([facility]) [address] [place] [address] Sodium [Moles/Vol] 138 mmol/L Normal 136-145 [facility] Comment on above: Performed By: #### 2 4323-8 #### CONCHIS VELAZQUEZ ([id number]) [facility] ([facility]) [address] [place] [address] 39180 Urea nitrogen [Mass/Vol] 16 mg/dL Normal 6-23 [facility] Comment on above: Performed By: #### 2 4323-8 #### CONCHIS VELAZQUEZ ([id number]) [facility] ([facility]) [address] [place] [address] 35133 Magnesiumon 01-31-2024 Magnesium [Mass/Vol] 2.09 mg/dL Normal 1.60-2.40 [facility] Comment on above: Performed By: #### 1 9123-9 #### CONCHIS VELAZQUEZ ([id number]) [facility] ([facility]) [address] [place] [address]5480 Thyrotropinon 01-31-2024 TSH Qn 1.77 m[IU]/L Normal 0.44-3.98 [facility] Comment on above: Order Comment: TSH t esting is performed using different testing methodology at [facility] than at other [facility]. Direct result comparisons should only be made within the same method. Performed By: #### 3 016-3 #### CONCHIS VELAZQUEZ ([id number]) [facility] ([facility]) [facility] [place] [address] Triacylglycerol lipaseon Lipase [Catalytic activity/Vol] 29 U/L Normal 9-82 [facility] Comment on above: Order Comment: Venip uncture immediately after or during the administration of Metamizole may lead to falsely low results. Testing should be performed immediately prior to Metamizole dosing. Performed By: #### 3 040-3 #### CONCHIS VELAZQUEZ ([id number]) [facility] ([facility]) [facility] [place] [address] Basophil percentageOrdered B y: Lane Sánchez on 01-13-2024 Basophil percentage 0 SEEN /hpf 0-5 [facility] Bilirubin Test strip Ql (U)O rdered By: Lane Sánchez on 01-13-2024 Bilirubin Ql (U) Negative Negative [facility] Culture, urineOrdered By: St latrice Sánchez on 01-13-2024 Bacteria identified Cx Nom (U) Culture exhibits no growth. [facility] Ketones Test strip Ql (U)Ord ered By: Lane Sánchez on 01-13-2024 Ketones Ql (U) Negative Negative [facility] Laboratory - Chemistry and C hemistry - challengeon 01-13-2024 Bilirubin Ql (U) Negative [facility] Glucose Ql (U) Negative [facility] Ketones Ql (U) Trace (5) [facility] pH (U) 7.5 [pH] [facility] Specific gravity (U) [Rel density] 1.[address] [facility] Urobilinogen (U) [Mass/Vol] 0.1472513 mg/dL [facility] Laboratory - Hematology and Cell countson 01-13-2024 Hemoglobin Ql (U) Negative [facility] Laboratory - Microbiology an d Antimicrobial susceptibilityon 01-13-2024 SARS-CoV-2 (COVID-19) RNA MARIA D+probe Ql (Unsp spec) Not detected [facility] Laboratory - Specimen inform ationon 01-13-2024 Clarity (U) Cloudy [facility] Color (U) YELLOW [facility] Laboratory - Urinalysison Nitrite Ql (U) Negative [facility] Protein Ql (U) Trace [facility] Mucus LM Ql (Urine sed)Order ed By: Lane Sánchez on 01-13-2024 Mucus Ql (Urine sed) 0 SEEN /hpf [facility] Nitrite Test strip Ql (U)Ord ered By: Lane Sánchez on 01-13-2024 Nitrite Ql (U) Negative Negative [facility] No Panel InformationOrdered By: Lane Sánchez on 01-13-2024 Urine RBC 0 SEEN /hpf 0-[address] [facility] No Panel Informationon 01-12 POC Nasal Swab Influenza A,B Not detected [facility] POC Nasal Swab RSV Not detected [facility] Urine Leukocytes Positive [facility] Urine Non-Hemolyzed Blood Non-Hemolyzed [facility] Protein Test strip Ql (U)Ord ered By: Lane Sánchez on 01-13-2024 Protein Ql (U) Negative Negative [facility] Squamous epithelial cells de tection in urine sediment by light microscopyOrdered By: Lane Sánchez on 01-13-2024 Epithelial cells.squamous LM Ql (Urine sed) 0 SEEN /hpf 0-[address] [facility] Urine blood detectionOrdered By: Lane Sánchez on 01-13-2024 RBC Ql (U) Negative Negative [facility] Urine clarityOrdered By: Will Sánchez on 01-13-2024 Clarity (U) Clear Clear [facility] Urine color determinationOrd ered By: Lane Sánchez on 01-13-2024 Color (U) Yellow Yellow [facility] Urine glucose detectionOrder ed By: Lane Sánchez on 01-13-2024 Glucose Ql (U) Normal mg/dl Normal [facility] Urine leukocyte esterase det ection by dipstickOrdered By: Lane Sánchez on 01-13-2024 Leukocyte esterase Test strip Ql (U) Negative Negative [facility] Urine pHOrdered By: Lane mckeon on 01-13-2024 pH (U) 8.0 [pH] 5.0 - 8.[address] [facility] Urine sediment bacteria coun t by microscopy (number/high power field)Ordered By: Lane Sánchez on 01-13-2024 Bacteria LM.HPF (Urine sed) [#/Area] 0 /[HPF] None Seen [facility] Urine specific gravity measu rementOrdered By: Lane Sánchez on 01-13-2024 Specific gravity (U) [Rel density] 1.010 1.002-1.[address] [facility] Urine urobilinogen measureme ntOrdered By: Lane Sánchez on 01-13-2024 Urobilinogen Ql (U) Normal mg/dl Normal [facility] Laboratory - Microbiology an d Antimicrobial susceptibilityon 11-28-2023 SARS-CoV-2 (COVID-19) RNA MARIA D+probe Ql (Unsp spec) Not detected [facility] No Panel Informationon 11-28 POC Nasal Swab Influenza A,B Detected [facility] POC Nasal Swab RSV Not detected [facility] Office Visit (Urology)on Follow-up visit Diagnoses/Problems [...] Aug 09 2021 3:50PM EST (Author) Normal [facility] ([facility]on Follow-up visit Diagnoses/Problems Assessed Encounter for vasectomy assessment (V25.09) (Z30.09) Orders Encounter for vasectomy assessment Start: diazePAM 10 MG Oral Tablet; TAKE 1 TABLET 1 HOUR PRIOR TO PROCEDURE Rx By: Corey Santiago II; Dispense: 1 Days ; #:1 Tablet; Refill: 0;For: Encounter for vasectomy assessment; SURAJ = N; Sent To: [facility]; Last Updated By: Zari Ochoa; 06/19/2021 3:12:31 PM Follow-up visit in 1 month Outpatient Follow-up VASECTOMY Status: Hold For - Scheduling,Retrospe ctive By Protocol Authorization Requested for: [id number] Ordered Stat;For: Encounter for vasectomy assessment; Ordered By: Corey Santiago II Performed: Due: [id number]; Last Updated By: Zari Ochoa; 06/19/2021 3:12:31 [...] morning with food Vitals Vital Signs Recorded: [id number] 03:10PM Heart Rate88 Ylfywbki027 Lkpsxctqh42 Height5 ft 10 in Vrtrww283 lb BMI Iniwbpekfg98.85 kg/m2 BSA Calculated2.15 Tobacco Useb) No Fall [...] Jun 19 2021 3:14PM EST (Author) Normal [employer] Tobacco Screening.on Fall risk assessment a) No falls within the last year AB-Tnxditq-Wrf land Work Phone: Tobacco use status [facility] b) No M G-Scrrzkq-Ely land Work Phone: CORONAVIRUS 2019 BY PCRon SARS-CoV-2 (COVID-19) RNA MARIA D+probe Ql (Unsp spec) Detected Abnormal Not Detected [facility] Comment on above: Order Comment: COVID CALLED TO FREEMAN, 12/07/2020 15:39 Result Comment: . This assay [...] patient management decisions. Fact sheet for providers: https://www.fda.gov/media/171816/download Fact sheet for patients: https://www.fda.gov/media/603986/download This test has received FDA Emergency Use Authorization (EUA) and has been verified by [facility] ([facility]). This test is only authorized for the duration of time that circumstances exist to justify the authorization of the emergency use of in vitro diagnostic tests for the detection of SARS-CoV-2 virus and/or diagnosis of COVID-19 infection under section 564(b)(1) of the Act, 21 U.S.C. 360bbb-3(b)(1), unless the authorization is terminated or revoked sooner. [facility] is certified under CLIA-88 as qualified to perform high complexity testing. Testing is performed in the [facility] laboratories located at [id number] [place] [address]. COVID CALLED TO BLAIRE 12/07/2020 15:39 Performed By: #### C OV19 #### [facility] [address] [place] [address] Clinical Event Noteon 2020 Clinical Event Note Clinical Event: Clinical Event Note: Details +covid called Details+covid called Electronic Signatures: Vasile Freeman (TERA) (Signed 07-Dec-2020 15:48) Authored: Clinical Event Note Last Updated: 07-Dec-2020 15:48 by Vasile Freeman (TERA) [facility] Covid 19 Resultson 1 SARS-CoV-2 (COVID-19) RNA MARIA D+probe Ql (Unsp [...] You may also be contacted by the [facility] to see if any of your close [...] or Naproxen (Aleve) can also be used. Gbiw-wtk-rdxiqnv cough and cold medicines can be used according to the instructions on the package. Some memf-wjl-axvxwgb medicines also contain acetaminophen. Make sure you [...] water are not available, use alcohol-based hand entry writer. Avoid touching your eyes, nose, and [...] ibuprofen (Motrin) (more content not included)... Normal [facility] Provider Note - ED v2on 11-28 Provider [...] dictated by speech recognition. Minor errors in medical transcription editor may be present. HISTORY OF PRESENTING ILLNESS FAN is a 35 year old Male and was seen by me at 06-Dec-2020 21:09 for a chief complaint [...] data. O (more content not included)... Normal [facility] CORONAVIRUS 2019 BY PCRon Lab Specimen Source Nasal, Nasopharyngeal Normal [facility] Comment on above: Order Comment: COVID CALLED TO FREEMAN, 12/07/2020 15:39 Performed By: #### C OV19 #### [facility] [address] [place] [address] DATE OF SYMPTOM ONSET [YYYYMMDD]? [id number] Normal [facility] Comment on above: Order Comment: COVID CALLED TO FREEMAN, 12/07/2020 15:39 Performed By: #### C OV19 #### [facility] [address] [place] [id number] Triage - EDon 12-06-2020 Triage - ED [...] BMI (kg/m2): 30.051 Calculated BSA (m2) 2.17 [place] Coma Scale: Best Eye Response: (E4) spontaneous Best Motor Response: (M6) obeys commands Best Verbal Response: (V5) oriented [place] Score: 15 Cough lasting greater than 3 [...] Updated: 06-Dec-2020 21:29 by Naheed Carrera (RN) [facility]fano [facility] CNOVon 01-08-2019 CNOV Office Visit (UCWSTR) ---- FAN THOMAS ([id number]) 1985 M Date Time Provider Department 01/08/19 6:45 PM JAE SUAREZ [facility] During your visit today, we recorded the [...] Diagnosis:Sore throat [J02.9] Order(s):RAPID STREP TEST B/O [[id number]] Order #: [id number] Prescriptions as of 01/08/2019 Sig: EFFEXOR XR [...] Status:Closed by JAE SUAREZ MD on 01/08/19 [facility] PROGRESSon 01-08-2019 Protein mass conc HNO ID: [id number] Author: Jae Suarez Service: ? Author Type: [...] difficulty breathing or swallowing. Jae Suarez MD [facility] Vital Signs Date Time Vital Sign Value Performing Clinician Facility 12-10-2024 14:48-0500 Body height 177.8 cm William Thommaryanne DO Work Phone: [facility] 12-10-2024 14:48-0500 Body mass index (BMI) [Ratio] 25.6 kg/m2 William Thomae DO Work Phone: [facility] 12-10-2024 14:48-0500 Body weight 80.92 kg William Thomae DO Work Phone: [facility] 12-10-2024 14:48-0500 Diastolic blood pressure 81 mm[Hg] William Thomae DO Work Phone: [facility] 12-10-2024 14:48-0500 Heart rate 85 /min William Thomae DO Work Phone: [facility] 12-10-2024 14:48-0500 Respiratory rate 16 /min William Thomae DO Work Phone: [facility] 12-10-2024 14:48-0500 SaO2% (BldA) [Mass fraction] 98 % William Thomae DO Work Phone: [facility] 12-10-2024 14:48-0500 Systolic blood pressure 119 mm[Hg] William Thomae DO Work Phone: [facility] 09-11-2024 14:54-0500 Body height 177.8 cm Xiang Rodriguez MD Work Phone: [facility] 09-11-2024 14:54-0500 Body mass index (BMI) [Ratio] 27.38 kg/m2 Xiang Rodriguez MD Work Phone: [facility] 09-11-2024 14:54-0500 Body weight 86.55 kg Xiang Rodriguez MD Work Phone: [facility] 09-11-2024 14:54-0500 Diastolic blood pressure 74 mm[Hg] Xiang Rodriguez MD Work Phone: [facility] 09-11-2024 14:54-0500 Heart rate 87 /min Xiang Rodriguez MD Work Phone: [facility] 09-11-2024 14:54-0500 SaO2% (BldA) [Mass fraction] 96 % Xiang Rodriguez MD Work Phone: [facility] 09-11-2024 14:54-0500 Systolic blood pressure 116 mm[Hg] Xiang Rodriguez MD Work Phone: [facility] 08-12-2024 15:33-0400 Body mass index (BMI) [Ratio] 29.41 kg/m2 Corey Santiago MD Work Phone: [facility] 08-12-2024 15:33-0400 Body weight 92.99 kg Corey Santiago MD Work Phone: [facility] 08-12-2024 15:33-0400 Diastolic blood pressure 62 mm[Hg] Corey Santiago MD Work Phone: [facility] 08-12-2024 15:33-0400 Heart rate 71 /min Corey Santiago MD Work Phone: [facility] 08-12-2024 15:33-0400 Systolic blood pressure 132 mm[Hg] Corey Santiago MD Work Phone: [facility] 06-17-2024 15:40-0400 Body mass index (BMI) [Ratio] 28.84 kg/m2 Corey Santiago MD Work Phone: [facility] 06-17-2024 15:40-0400 Body weight 91.17 kg Corey Santiago MD Work Phone: [facility] 06-17-2024 15:40-0400 Diastolic blood pressure 74 mm[Hg] Corey Santiago MD Work Phone: [facility] 06-17-2024 15:40-0400 Respiratory rate 16 /min Corey Santiago MD Work Phone: [facility] 06-17-2024 15:40-0400 Systolic blood pressure 126 mm[Hg] Corey Santiago MD Work Phone: [facility] 03-06-2024 15:36-0400 Body height 177.8 cm iXang Rodriguez MD Work Phone: [facility] 03-06-2024 15:36-0400 Body mass index (BMI) [Ratio] 29.56 kg/m2 Xiang Rodriguez MD Work Phone: [facility] 03-06-2024 15:36-0400 Body weight 93.44 kg Xiang Rodriguez MD Work Phone: [facility] 03-06-2024 15:36-0400 Diastolic blood pressure 78 mm[Hg] Xiang Rodriguez MD Work Phone: [facility] 03-06-2024 15:36-0400 Heart rate 78 /min Xiang Rodriguez MD Work Phone: [facility] 03-06-2024 15:36-0400 SaO2% (BldA) [Mass fraction] 99 % Xiang Rodriguez MD Work Phone: [facility] 03-06-2024 15:36-0400 Systolic blood pressure 126 mm[Hg] Xiang Rodriguez MD Work Phone: [facility] 02-26-2024 07:43-0400 Body mass index (BMI) [Ratio] 29.84 kg/m2 Corey Santiago MD Work Phone: [facility] 02-26-2024 07:43-0400 Body weight 94.35 kg Corey Santiago MD Work Phone: [facility] 02-26-2024 07:43-0400 Respiratory rate 16 /min Corey Santiago MD Work Phone: [facility] 01-31-2024 13:47-0400 Body height 177.8 cm Xiang Rodriguez MD Work Phone: [facility] 01-31-2024 13:47-0400 Body mass index (BMI) [Ratio] 29.92 kg/m2 Xiang Rodriguez MD Work Phone: [facility] 01-31-2024 13:47-0400 Body weight 94.58 kg Xiang Rodriguez MD Work Phone: [facility] 01-31-2024 13:47-0400 Diastolic blood pressure 82 mm[Hg] Xiang Rodriguez MD Work Phone: [phone] [place] [address] 01-31-2024 13:47-0400 Heart rate 62 /min Xiang Rodriguez MD Work Phone: [facility] 01-31-2024 13:47-0400 SaO2% (BldA) [Mass fraction] 99 % Xiang Rodriguez MD Work Phone: [facility] 01-31-2024 13:47-0400 Systolic blood pressure 110 mm[Hg] Xiang Rodriguez MD Work Phone: [facility] 01-22-2024 15:15-0400 Body height 177.8 cm Corey Santiago MD Work Phone: [facility] 01-22-2024 15:15-0400 Body mass index (BMI) [Ratio] 30.85 kg/m2 Corey Santiago MD Work Phone: [facility] 01-22-2024 15:15-0400 Body weight 97.52 kg Corey Santiago MD Work Phone: [facility] 01-22-2024 15:15-0400 Diastolic blood pressure 90 mm[Hg] Corey Santiago MD Work Phone: [facility] 01-22-2024 15:15-0400 Systolic blood pressure 143 mm[Hg] Corey Santiago MD Work Phone: [facility] 01-13-2024 10:01-0400 Body height 177.8 cm No Primary Care Physician [facility] 01-13-2024 10:01-0400 Body mass index (BMI) [Ratio] 28.7 kg/m2 No Primary Care Physician [facility] 01-13-2024 10:01-0400 Body temperature 98.7 [degF] No Primary Care Physician [facility] 01-13-2024 10:01-0400 Body weight 90.71 kg No Primary Care Physician [facility] 01-13-2024 10:01-0400 Diastolic blood pressure 86 mm[Hg] No Primary Care Physician [facility] 01-13-2024 10:01-0400 Heart rate 80 /min No Primary Care Physician [facility] 01-13-2024 10:01-0400 Respiratory rate 16 /min No Primary Care Physician [facility] 01-13-2024 10:01-0400 SaO2% (BldA) [Mass fraction] 99 % No Primary Care Physician [facility] 01-13-2024 10:01-0400 Systolic blood pressure 132 mm[Hg] No Primary Care Physician [facility] 06-19-2021 15:10-0400 Body height 177.8 cm Marty Moyer Work Phone: IC-Ldgthgz-Bbmyhzk Work Phone: 06-19-2021 15:10-0400 Body mass index (BMI) [Ratio] 30.85 kg/m2 Marty Moyer Work Phone: NP-Rgjsvqr-Ominbql Work Phone: 06-19-2021 15:10-0400 Body surface area Derived from formula 2.15 m2 Marty Moyer Work Phone: EU-Wwdxnay-Sxejgyk Work Phone: 06-19-2021 15:10-0400 Body weight 97.52 kg Marty Moyer Work Phone: VY-Mkkxkan-Atebbmq Work Phone: 06-19-2021 15:10-0400 Diastolic blood pressure 95 mm[Hg] Marty Moyer Work Phone: AL-Vuxwfqa-Wlloxfo Work Phone: 06-19-2021 15:10-0400 Heart rate 88 /min Marty Moyer Work Phone: VU-Xzrcgfo-Xwxufzt Work Phone: 06-19-2021 15:10-0400 Systolic blood pressure 143 mm[Hg] Marty Moyer Work Phone: LV-Yolitpj-Xtknpny Work Phone: 09-28-2019 18:32-0500 BMI (Body Mass Index) 30.45 kg/m2 Marty Moyer -[facility] Work Phone: 09-28-2019 18:32-0500 Body weight 96.25 kg Marty Moyer -[facility] Work Phone: 09-28-2019 18:32-0500 BP Diastolic 92 mm[Hg] Marty Moyer -[facility] Work Phone: Comment on above: Location: [facility]; 09-28-2019 18:32-0500 BP Systolic 134 mm[Hg] Marty Moyer -[facility] Work Phone: Comment on above: Location: [facility]; 09-28-2019 18:32-0500 BSA (Body Surface Area) 2.14 m2 Marty Moyer -[facility] Work Phone: 09-28-2019 18:32-0500 Height 177.8 cm Marty Moyer -[facility] Work Phone: 09-28-2019 18:32-0500 Pulse (Heart Rate) 72 /min Marty Moyer -[facility] Work Phone: Encounters Encounter Date Encounter Type Care Provider Facility Start: 04-03-2025 End: 04-03-[address] William Velez DO Work Phone: [facility] Work Phone: Start: 04-03-2025 End: 04-03-[address] Anthony Cordova MD -Laboratory Work Phone: Start: 04-03-2025 End: 04-03-2025 ambulatory Anthony Cordova Facility:[facility] Start: 02-10-2025 End: 02-10-2025 Office outpatient visit 25 minutes Corey Santiago MD Work Phone: [facility] Comment on above: Male hypogonadism; Nocturia; Urinary frequency; Hx of prostatitis Start: 02-10-2025 End: 02-10-2025 ambulatory COREY Buckley [facility] Ambulatory Start: 12-25-2024 End: 12-25-[address] William Velez DO Work Phone: [facility] Work Phone: Start: 12-25-2024 End: 12-25-[address] William Velez DO -Laboratory, Specimen Work Phone: Start: 12-25-2024 End: 12-25-2024 ambulatory Williamilene Velez Facility:[facility] Start: 12-19-2024 End: 12-19-[address] William Velez DO -Ultrasound, [facility] Work Phone: Start: 12-19-2024 End: 12-19-2024 ambulatory William Velez Facility:[facility] Start: 12-10-2024 End: 12-10-2024 Office outpatient new 45 minutes William Velez DO Work Phone: [facility] Comment on above: Dyspepsia (Primary D x); Gastroesophageal reflux disease with esophagitis without hemorrhage; RUQ pain Start: 12-10-2024 End: 12-10-2024 ambulatory [facility] Ambulatory Start: 09-11-2024 End: 09-11-2024 Office outpatient visit 15 minutes Xiang Rodriguez MD Work Phone: [facility] Comment on above: Gastroesophageal ref lux disease with esophagitis without hemorrhage Start: 09-11-2024 End: 09-11-2024 ambulatory XIANG RODRIGUEZ [facility] Ambulatory Start: 08-12-2024 End: 08-12-2024 Office outpatient visit 25 minutes Corey Santiago MD Work Phone: [facility] Comment on above: Male hypogonadism; Nocturia; Hx of prostatitis Start: 08-12-2024 End: 08-12-2024 ambulatory [facility] Ambulatory Start: 08-05-2024 End: 08-05-2024 ambulatory [facility] Start: 06-17-2024 End: 06-17-2024 Office outpatient visit 25 minutes Corey Santiago MD Work Phone: [facility] Comment on above: Male hypogonadism; Nocturia Start: 06-17-2024 End: 06-17-2024 ambulatory [facility] Start: 03-06-2024 End: 03-06-2024 Office outpatient visit 15 minutes Xiang Rodriguez MD Work Phone: [facility] Comment on above: Gastroesophageal ref lux disease with esophagitis without hemorrhage (Primary Dx) Start: 03-06-2024 End: 03-06-2024 ambulatory [facility] Ambulatory Start: 03-02-2024 End: 03-02-2024 Office outpatient visit 25 minutes Corey Santiago MD Work Phone: [facility] Comment on above: BPH with urinary obs truction; Nocturia; Urinary frequency; Urinary hesitancy; Male hypogonadism; Hx of prostatitis Start: 03-02-2024 End: 03-02-2024 ambulatory [facility] Start: 02-26-2024 End: 02-26-2024 ambulatory [facility] Start: 02-26-2024 End: 02-26-2024 Office outpatient visit 25 minutes Corey Santiago MD Work Phone: [facility] Comment on above: Hx of prostatitis; BPH with urinary obstruction; Nocturia; Other fatigue Start: 01-31-2024 End: 01-31-2024 ambulatory MARTY MOYER [facility] Start: 01-31-2024 End: 01-31-2024 Office outpatient new 45 minutes Xiang Rodriguez MD Work Phone: [facility] Comment on above: Pain of upper abdome n (Primary Dx); Fatigue, unspecified type; Gastroesophageal reflux disease with esophagitis without hemorrhage Start: 01-22-2024 End: 01-22-2024 Office outpatient new 45 minutes Corey Santiago MD Work Phone: [facility] Comment on above: Urinary tract infect ion without hematuria, site unspecified (Primary Dx); Urinary hesitancy; Urinary frequency; Hx of prostatitis Start: 01-13-2024 End: 01-13-2024 ambulatory No Primary Care Physician [facility] Work Phone: Start: 01-13-2024 End: 01-13-2024 Patient encounter procedure No Primary Care Physician [facility] Work Phone: Start: 11-28-2023 End: 11-28-2023 Patient encounter procedure No Primary Care Physician [facility] Work Phone: Start: 07-24-2021 AUDIT Marty Moyer Work Phone: GR-Pgrqqlx-Xxflcca Work Phone: Start: 06-19-2021 AUDIT Marty Moyer Work Phone: FE-Rkyadru-Oiuewva Work Phone: Start: 06-19-2021 Office outpatient ne w 45 minutes Marty Moyer Work Phone: BM-Rwgqdxm-Cuvyvelb [facility] 232 DO Work Phone: Start: 01-08-2019 End: 01-09-2019 Patient encounter procedure [facility] Procedures Date Procedure Procedure Detail Performing [...] [Units/v olume] in Serum or Plasma MARTY MOYER Start: 01-13-2024 Urine culture No Primar y Care Physician Operative procedure on hand Marty Moyer Plan of Treatment Date Care Activity Detail Author Start: 2035 Zoster Vaccines (1 of 2) Zoste r Vaccines (1 of 2) [facility] Start: 08-12-2025 End: 02-10-2026 Testosterone [Mass/volume] in Serum or Plasma Testosterone Lab Routine Male hypogonadism Nocturia Urinary frequency Expected: 08/12/2025 (Approximate), Expires: 02/10/2026 [facility] Work Phone: Comment on above: Expected: 08/12/2025 (Approximate), Expires: 02/10/2026 Start: 06-28-2025 Influenza vaccination Influenz a Vaccine (Season Ended) [facility] Start: 05-12-2025 End: 02-10-2026 Hemoglobin and Hematocrit panel - Blood Hemoglobin and Hematocrit, Blood Lab Routine Male hypogonadism Nocturia Urinary frequency Expected: 05/12/2025 (Approximate), Expires: 02/10/2026 [facility] [facility] Work Phone: Comment on above: Expected: 05/12/2025 (Approximate), Expires: 02/10/2026 Start: 05-12-2025 End: 02-10-2026 Prostate specific Ag [Mass/volume] in Serum or Plasma Prostate Specific Antigen Lab Routine Male hypogonadism Nocturia Urinary frequency Expected: 05/12/2025 (Approximate), Expires: 02/10/2026 [facility] Work Phone: Comment on above: Expected: 05/12/2025 (Approximate), Expires: 02/10/2026 Start: 02-10-2025 End: 02-10-2025 Patient encounter procedure 02/10/2025 3:30 PM EDT Office Visit [facility] [address] [phone] Corey Santiago MD [address] [place] [address] [facility] Start: 01-26-2025 End: 08-12-2025 Hemoglobin and Hematocrit panel - Blood Hemoglobin and Hematocrit, Blood Lab Routine Male hypogonadism Expected: 01/26/2025 (Approximate), Expires: 08/12/2025 [facility] Work Phone: Comment on above: Expected: 01/26/2025 (Approximate), Expires: 08/12/2025 Start: 01-26-2025 End: 08-12-2025 Prostate specific Ag [Mass/volume] in Serum or Plasma Prostate Specific Antigen Lab Routine Nocturia Expected: 01/26/2025 (Approximate), Expires: 08/12/2025 [facility] Service Area Work Phone: Comment on above: Expected: 01/26/2025 (Approximate), Expires: 08/12/2025 Start: 01-26-2025 End: 08-12-2025 Testosterone [Mass/volume] in Serum or Plasma Testosterone Lab Routine Male hypogonadism Expected: 01/26/2025 (Approximate), Expires: 08/12/2025 [facility] Work Phone: Comment on above: Expected: 01/26/2025 (Approximate), Expires: 08/12/2025 Start: 12-14-2024 End: 12-14-2024 Patient encounter procedure 12/14/2024 4:30 PM EST Appointment [facility] [address] [place] [address] [facility] Start: 12-10-2024 End: 03-09-2025 Helicobacter pylori Ag [Presence] in Stool by Immunoassay H. Pylori Antigen, Stool Lab Routine Dyspepsia Expected: 12/10/2024 (Approximate), Expires: 03/09/2025 [facility] Work Phone: Comment on above: Expected: 12/10/2024 (Approximate), Expires: 03/09/2025 Start: 12-10-2024 End: 12-10-2025 US Liver limited US abdomen limited liver Imaging Routine Dyspepsia RUQ pain Expected: 12/10/2024 (Approximate), Expires: 12/10/2025 [facility] Service Area Work Phone: Comment on above: Expected: 12/10/2024 (Approximate), Expires: 12/10/2025 Start: 11-12-2024 End: 08-12-2025 Hemoglobin and Hematocrit panel - Blood Hemoglobin and Hematocrit, Blood Lab Routine Male hypogonadism Expected: 11/12/2024 (Approximate), Expires: 08/12/2025 [facility] Work Phone: Comment on above: Expected: 11/12/2024 (Approximate), Expires: 08/12/2025 Start: 11-12-2024 End: 08-12-2025 Prostate specific Ag [Mass/volume] in Serum or Plasma Prostate Specific Antigen Lab Routine Nocturia Expected: 11/12/2024 (Approximate), Expires: 08/12/2025 [facility] Work Phone: Comment on above: Expected: 11/12/2024 (Approximate), Expires: 08/12/2025 Start: 11-12-2024 End: 08-12-2025 Testosterone [Mass/volume] in Serum or Plasma Testosterone Lab Routine Male hypogonadism Expected: 11/12/2024 (Approximate), Expires: 08/12/2025 [facility] Work Phone: Comment on above: Expected: 11/12/2024 (Approximate), Expires: 08/12/2025 Start: 09-11-2024 End: 09-11-2024 Patient encounter procedure [facility] Start: 08-12-2024 End: 08-12-2024 Patient encounter procedure 08/12/2024 3:15 PM EDT Office Visit [facility] [address] [facility] [address] [place] [phone] Corey Santiago MD [address] [place] [address] [facility] Start: 06-28-2024 COVID-19 Vaccine ( season) COVID-19 Vaccine () [facility] Start: 06-28-2024 COVID-19 Vaccine ( season) COVID-19 Vaccine () [facility] Start: 06-28-2024 Influenza vaccination [facility] Start: 06-17-2024 End: 06-17-2024 Patient encounter procedure 06/17/2024 3:45 PM EDT Office Visit [facility] [address] [facility] [address] [place] [address] Corey Santiago MD [address] [place] [address] [facility] Start: 06-17-2024 End: 06-17-2025 Hemoglobin and Hematocrit panel - Blood Hemoglobin and Hematocrit, Blood Lab Routine Male hypogonadism Expected: 06/17/2024 (Approximate), Expires: 06/17/2025 [facility] Work Phone: Comment on above: Expected: 06/17/2024 (Approximate), Expires: 06/17/2025 Start: 06-17-2024 End: 06-17-2025 Prostate specific Ag [Mass/volume] in Serum or Plasma Prostate Specific Antigen Lab Routine Male hypogonadism Nocturia Expected: 06/17/2024 (Approximate), Expires: 06/17/2025 [facility] Service Area Work Phone: Comment on above: Expected: 06/17/2024 (Approximate), Expires: 06/17/2025 Start: 06-17-2024 End: 06-17-2025 Testosterone [Mass/volume] in Serum or Plasma Testosterone Lab Routine Male hypogonadism Expected: 06/17/2024 (Approximate), Expires: 06/17/2025 [facility] Work Phone: Comment on above: Expected: 06/17/2024 (Approximate), Expires: 06/17/2025 Start: 06-02-2024 End: 03-02-2025 Hemoglobin and Hematocrit panel - Blood Hemoglobin and Hematocrit, Blood Lab Routine Male hypogonadism Expected: 06/02/2024 (Approximate), Expires: 03/02/2025 [facility] Work Phone: Comment on above: Expected: 06/02/2024 (Approximate), Expires: 03/02/2025 Start: 06-02-2024 End: 03-02-2025 Prostate specific Ag [Mass/volume] in Serum or Plasma Prostate Specific Antigen Lab Routine Male hypogonadism Expected: 06/02/2024 (Approximate), Expires: 03/02/2025 [facility] Service Area Work Phone: Comment on above: Expected: 06/02/2024 (Approximate), Expires: 03/02/2025 Start: 06-02-2024 End: 03-02-2025 Testosterone [Mass/volume] in Serum or Plasma Testosterone Lab Routine Male hypogonadism Expected: 06/02/2024 (Approximate), Expires: 03/02/2025 [facility] Work Phone: Comment on above: Expected: 06/02/2024 (Approximate), Expires: 03/02/2025 Start: 03-06-2024 End: 03-06-2024 Patient encounter procedure 03/06/2024 3:40 PM EDT Office Visit [facility] [address] [place] [phone] Xiang Rodriguez MD [address] [phone] [facility] Start: 03-02-2024 End: 03-02-2024 Telemedicine consultation with patient 03/02/2024 10:45 AM EDT Telemedicine [facility] [address] [facility] [address] [place] [address] Corey Santiago MD [address] [phone] [facility] Start: 02-26-2024 End: 02-25-2025 Testosterone,Free and Total Testosterone,Free and Total Lab Routine Other fatigue Expected: 02/26/2024 (Approximate), Expires: 02/25/2025 [facility] Work Phone: Comment on above: Expected: 02/26/2024 (Approximate), Expires: 02/25/2025 Start: 02-26-2024 End: 02-26-2024 Patient encounter procedure 02/26/2024 7:45 AM EDT Office Visit [facility] [address] [phone] Corey Santiago MD [address] [place] [address] [facility] Start: 01-31-2024 End: 01-31-2024 ambulatory 01/31/2024 2:40 PM EDT Lab [facility] [address] [place] [phone] Fatigue, unspecified type; Pain of upper abdomen; Gastroesophageal reflux disease with esophagitis without hemorrhage [facility] Comment on above: Fatigue, unspecified type; Pain of upper abdomen; Gastroesophageal reflux disease with esophagitis without hemorrhage Start: 01-31-2024 End: 01-30-2025 CBC panel - Blood by Automated count [facility] Work Phone: Comment on above: Expected: 01/31/2024 (Approximate), Expires: 01/30/2025 Start: 01-31-2024 End: 01-30-2025 Cobalamin (Vitamin B12) [Mass/volume] in Serum or Plasma [facility] Work Phone: Comment on above: Expected: 01/31/2024 (Approximate), Expires: 01/30/2025 Start: 01-31-2024 End: 01-30-2025 Comprehensive metabolic 2000 panel - Serum or Plasma [facility] Work Phone: Comment on above: Expected: 01/31/2024 (Approximate), Expires: 01/30/2025 Start: 01-31-2024 End: 01-30-2025 Lipase [Enzymatic activity/volume] in Serum or Plasma [facility] Work Phone: Comment on above: Expected: 01/31/2024 (Approximate), Expires: 01/30/2025 Start: 01-31-2024 End: 01-30-2025 Magnesium [Mass/volume] in Serum or Plasma [facility] Work Phone: Comment on above: Expected: 01/31/2024 (Approximate), Expires: 01/30/2025 Start: 01-31-2024 End: 01-30-2025 Thyrotropin [Units/volume] in Serum or Plasma [facility] Work Phone: Comment on above: Expected: 01/31/2024 (Approximate), Expires: 01/30/2025 Start: 06-28-2023 COVID-19 Vaccine ( season) COVID-19 Vaccine ( season) [facility] Start: 06-28-2023 Influenza vaccination Influenza Vacc ine (#1) [facility] Start: 11-18-2021 DTaP/Tdap/Td Vaccine s (3 - Td or Tdap) DTaP/Tdap/Td Vaccines (3 - Td or Tdap) [facility] Start: 08-09-2021 VASECTOMY, Provider: [facility] PROCEDURE RM,[id number], Status: Pen, Time: 4:15 PM VASECTOMY, Provider: [facility] PROCEDURE RM,[id number], Status: Pen, Time: 4:15 PM [facility]cv[facility] 232 DO Work Phone: Start: 08-07-2021 VASECTOMY, Provider: [facility] PROCEDURE RM,[id number], Status: Pen, Time: 4:15 PM VASECTOMY, Provider: [facility] PROCEDURE RM,[id number], Status: Pen, Time: 4:15 PM NE-Httqyma-Hbpvxlb Work Phone: Start: 02-18-2010 MMR Vaccines (1 of 1 - Standard series) MMR Vaccines (1 of 1 - Standard series) [facility] Start: 02-18-2010 Varicella vaccination Varicell a Vaccines (1 of 2 - 13+ 2-dose series) [facility] Start: 2007 DTaP/Tdap/Td Vaccine s (1 - Tdap) DTaP/Tdap/Td Vaccines (1 - Tdap) [facility] Start: 01-03-2005 IPV Vaccines (2 of 3 - Adult catch-up series) IPV Vaccines (2 of 3 - Adult catch-up series) [facility] Start: 2003 Diabetes mellitus screening Diabetes Screening [facility] Start: 2003 Hepatitis C screening Hepatitis C Sc reening [facility] Start: 1991 Pneumococcal Vaccine : Pediatrics (0 to 5 Years) and At-Risk Patients (6 to 64 Years) (1 - PCV) Pneumococcal Vaccine: Pediatrics (0 to 5 Years) and At-Risk Patients (6 to 64 Years) (1 - PCV) [facility] Start: 1991 Pneumococcal Vaccine : Pediatrics (0 to 5 Years) and At-Risk Patients (6 to 64 Years) (1 of 2 - PCV) Pneumococcal Vaccine: Pediatrics (0 to 5 Years) and At-Risk Patients (6 to 64 Years) (1 of 2 - PCV) [facility] Start: 1986 MMR Vaccines (1 of 1 - Standard series) MMR Vaccines (1 of 1 - Standard series) [facility] Start: 1986 Varicella vaccination Varicell a Vaccines (1 of 2 - 2-dose childhood series) [facility] Start: 1985 Hepatitis B Vaccines (1 of 3 - 3-dose series) Hepatitis B Vaccines (1 of 3 - 3-dose series) [facility] Start: 1985 HIV screening HIV Screening [facility] Start: 1985 Lipid panel Lipid Panel [facility] Start: 1985 Yearly Adult Physical Yearly Adult P hysical [facility] Immunizations Immunization Date Immunization Notes Care Provider Fa cility 08-14-2015 influenza virus vacc ine, unspecified formulation Corey Santaigo MD Work Phone: [facility] Work Phone: 07-31-2012 influenza, seasonal, injectable, preservative free Xiang Rodriguez MD Work Phone: [facility] Work Phone: 11-18-2011 anthrax vaccine Xiang mccallum MD Work Phone: [facility] Work Phone: 11-18-2011 influenza, seasonal, injectable, preservative free Xiang Rodriguez MD Work Phone: [facility] Work Phone: 11-18-2011 tetanus toxoid, redu den diphtheria toxoid, and acellular pertussis vaccine, adsorbed Xiang Rodriguez MD Work Phone: [facility] Work Phone: 11-18-2011 typhoid capsular polysaccharide vaccine Xiang Rodriguez MD Work Phone: [facility] Work Phone: 09-02-2010 influenza virus vacc ine, split virus (incl. purified surface antigen) Xiang Rodriguez MD Work Phone: [facility] Work Phone: 01-21-2010 novel influenza-H1N1 -09, injectable Xiang Rodriguez MD Work Phone: [facility] Work Phone: 07-23-2009 influenza virus vacc ine, live, attenuated, for intranasal use Xiang Rodriguez MD Work Phone: [facility] Work Phone: 06-26-2007 hepatitis A and hepatitis B vaccine Xiang Rodriguez MD Work Phone: [facility] Work Phone: 04-19-2007 anthrax vaccine Xiang mccallum MD Work Phone: [facility] 03-27-2007 anthrax vaccine Xiang mccallum MD Work Phone: [facility] Work Phone: 09-10-2006 influenza virus vacc ine, live, attenuated, for intranasal use Xiang Rodriguez MD Work Phone: [facility] Work Phone: 09-10-2006 vaccinia (smallpox) vaccine Xiang Rodriguez MD Work Phone: [facility] Work Phone: 09-02-2006 anthrax vaccine Xiang mccallum MD Work Phone: [facility] Work Phone: 09-02-2006 hepatitis A and hepatitis B vaccine Xiang Rodriguez MD Work Phone: [facility] Work Phone: 09-02-2006 typhoid capsular polysaccharide vaccine Xiang Rodriguez MD Work Phone: [facility] Work Phone: 07-22-2005 hepatitis A vaccine, adult dosage Xiang Rodriguez MD Work Phone: [facility] Work Phone: 12-06-2004 hepatitis A and hepatitis B vaccine Xiang Rodriguez MD Work Phone: [facility] Work Phone: 12-06-2004 influenza virus vacc ine, split virus (incl. purified surface antigen) Xiang Rodriguez MD Work Phone: [facility] Work Phone: 12-06-2004 meningococcal polysaccharide vaccine (MPSV4) Xiang Rodriguez MD Work Phone: [facility] Work Phone: 12-06-2004 poliovirus vaccine, inactivated Xiang Rodriguez MD Work Phone: [facility] Work Phone: 12-06-2004 tetanus and diphther ia toxoids, adsorbed, preservative free, for adult use (2 Lf of tetanus toxoid and 2 Lf of diphtheria toxoid) Xiang Rodriguez MD Work Phone: [facility] Work Phone: 12-06-2004 poliovirus vaccine, unspecified formulation Corey Santiago MD Work Phone: [facility] Work Phone: Payers Date Payer Category Payer [employer] ( [employer] others) [id number] 2024 Self-pay [id number] 2023 [employer] ( and others) [id number] 2018 () [id number] 2018 [employer] ( and others) [id number] 2017 Managed Care (Private) [facility] [id number] 2017 Private Health Insurance [facility] [id number] 2017-Present [id number] JESSICA Mcclendon [phone] [id number] 2017 Private Health Insurance [id number] 1985 Unknown [id number] .[id number] 1985 Unknown [id number] .1245 1985 Unknown [id number] .1245 1985 Unknown [id number] .1244 1985 Unknown [id number] .1244 1985 Unknown [id number] [id number] .1244 1985 Unknown [id number] [id number] .1244 1985 Unknown [id number] [id number] .1244 1985 Unknown [id number] [id number] .1244 1985 Unknown [id number] .1244 Unknown Unknown [id number] [id number] .462 Unknown [id number] [id number] .462 Unknown [id number] .462 Social History Date Type Detail Facility Assertion Unknown if ever smoked [facility] Work Phone: Start: 01-31-2024 End: 09-11-2024 Former smokeless tobacco use Former smokeless tobacco use [facility] Start: 01-13-2024 Tobacco smoking stat us NHIS Unknown if ever smoked [facility] Start: 1985 Sex Assigned At Male [facility] Start: 01-13-2024 End: 01-22-2024 Tobacco smoking status NHIS Never smoked tobacco [facility] Work Phone: Start: 01-22-2024 Tobacco use and exposure Smokeless tobacco non-user [facility] Work Phone: Start: 1985 [facility] Start: 01-31-2024 End: 09-11-2024 Gender identity Not on file [facility] Start: 01-12-2024 End: 12-10-2024 Exposure to SARS-CoV-2 (event) Not sure [facility] Start: 09-11-2024 End: 12-10-2024 Alcoholic beverage intake Ex-drinker (finding) [facility] Work Phone: Start: 01-07-2025 Sex Male (finding) [facility] Medical Equipment Procedure Code Equipment Code Equipment Origin al Text Equipment Identifier Dates Use for IM injections [id number] Start: 08-17-2024 End: 02-10-2025 Use for IM injections [id number] Start: 06-17-2024 End: 08-12-2024 Use for IM injections [id number] Start: 02-10-2025 Functional Status Date Assessment Result Facility NEGATED: Highlighted row Functional performance Functional status health issues are not documented Disease -[facility] Work Phone: Mental Status Date Assessment Result Facility NEGATED: Highlighted row Cognitive function [Interpretation] Cognitive status health issues are not documented Disease [facility] Work Phone: Clinical Notes 01-22-2024 to 02-10-2025 [...] 02/10/25 3:42 PM documented in this encounter [facility] Work Phone: 12-10-2024 History of Present illness [...] 12/10/24 3:36 PM documented in this encounter [facility] Work Phone: 09-11-2024 History of Present illness [...] Referral to Gastroenterology documented in this encounter [facility] Work Phone: 08-12-2024 History of Present illness [...] months with LABS documented in this encounter [facility] Work Phone: 06-17-2024 History of Present illness [...] F/U 2 months documented in this encounter [facility] Work Phone: 03-06-2024 History of Present illness [...] - Primary K21.00 documented in this encounter [facility] Work Phone: 03-02-2024 History of Present illness [...] with T level documented in this encounter [facility] Work Phone: 02-26-2024 History of Present illness Narrative Subjective Patient ID: Fan Thomsa is a 38 y.o. male. HPI Patient [...] T level virtual documented in this encounter [facility] Work Phone: 01-31-2024 History of Present illness Narrative Subjective Patient ID: Fan Thomas is a 38 y.o. male who presents for [facility] (CHRONIC NAUSEA x1mo). HPI Off-and-on nausea [...] Thyroid Stimulating Hormone documented in this encounter [facility] Work Phone: 01-22-2024 History of Present illness [...] F/U 3 weeks documented in this encounter [facility] Work Phone: Evaluation note No assessment inform ation available [facility] Work Phone: Evaluation note Diagnosis Urinary tract infection without hematuria, site unspecified- Primary Urinary hesitancy Urinary frequency Hx of prostatitis documented in this encounter [facility] Work Phone: Evaluation note* Diagnosis Pain of upper abdomen- Primary Fatigue, unspecified type Gastroesophageal reflux disease with esophagitis without hemorrhage Fatigue, unspecified type Pain of upper abdomen Gastroesophageal reflux disease with esophagitis without hemorrhage documented in this encounter [facility] Work Phone: [phone] note* Diagnosis Hx of prostatitis BPH with urinary obstruction Hypertrophy of prostate with urinary obstruction and other lower urinary tract symptoms (LUTS) Nocturia Other fatigue documented in this encounter [facility] Work Phone: [phone] note* Diagnosis BPH with urinary obstruction Hypertrophy of prostate with urinary obstruction and other lower urinary tract symptoms (LUTS) Nocturia Urinary frequency Urinary hesitancy Male hypogonadism Other testicular hypofunction Hx of prostatitis documented in this encounter [facility] Work Phone: [phone] note* Diagnosis Gastroesophageal reflux disease with esophagitis without hemorrhage- Primary documented in this encounter [facility] Work Phone: [phone] note* Diagnosis Male hypogonadism Other testicular hypofunction Nocturia Hx of prostatitis documented in this encounter [facility] Work Phone: [phone] note* Diagnosis Gastroesophageal reflux disease with esophagitis without hemorrhage documented in this encounter [facility] Work Phone: [phone] note* Diagnosis Male hypogonadism Other testicular hypofunction Nocturia documented in this encounter [facility] Work Phone: [phone] note* Diagnosis Dyspepsia- Primary Dyspepsia and other specified disorders of function of stomach Gastroesophageal reflux disease with esophagitis without hemorrhage RUQ pain Abdominal pain, right upper quadrant documented in this encounter [facility] Work Phone: [phone] note* Diagnosis Male hypogonadism Other testicular hypofunction Nocturia Urinary frequency Hx of prostatitis documented in this encounter [facility] Work Phone: [phone] of Present illness NarrativePatient is here for vasectomy consult. Patient is and 3 children. LUT'S sx are mild and stable. Denies urgency and frequency. Denies dysuria. Denies hematuria. Nocturia x1. No medication for CHAN'TS.[facility] 232 DO Work Phone: reason for referral (narrative)* Consultation (Routine) - Authorized Specialty Diagnoses / Procedures Referred By Jaki mcclain Referred To Contact Primary Care Procedures Follow Up In Primary Care - Established Xiang Rodriguez MD [address] [place] [address] Referral ID Status Reason Start Date Expiration Date V isits Requested Visits Authorized [id number] Authorized 03/06/2024 03/06/2025 1 1 T [facility] Work Phone: Reiokp for referral (narrative)No [facility] for [facility] Work [facility]: Summary Purpose Family History No [...] No May 14, 2021 8:51pm Power of Firmware Architect No May 14 8:51pm Chief Complaint Vasectomy consult Chief Complaint and Reason for Visit Chief Complaint COVID TEST/ CAMELIA BR AND NAUSEA/FATIGUE COVID TEST/CAMELIA BRAND Chief Complaint Admit Date LIVER RUQ December 19, 2024 7:40am Chief Complaint Admit Date LIVER RUQ December 19, 2024 7:40am SKIN- FASTING April 03, 2025 8:58a m Additional Source Comments (unrecognized sect ion and content) No Status Records FoundNo Status Records FoundNo Status Records FoundNo Status Records FoundNo Status Records FoundNo Status Records FoundNo Status Records Found INFORMATION SOURCE (unrecogn ized section and content) DATE CREATED AUTHOR 01/10/2019 [facility] DATE CREATED AUTHOR AUTHOR'S ORGANIZ ATION 03/11/2021 [facility] DATE CREATED AUTHOR AUTHOR'S ORGANIZ ATION 08/10/2021 [facility] DATE CREATED AUTHOR AUTHOR'S ORGANIZ ATION 08/10/2024 [facility] DATE CREATED AUTHOR AUTHOR'S ORGANIZ ATION 02/07/2025 [facility] DATE CREATED AUTHOR AUTHOR'S ORGANIZ ATION 02/25/2025 [facility] DATE CREATED AUTHOR AUTHOR'S ORGANIZ ATION [facility]20[facility] Care Teams (unrecognized sec tion and content) Team Status: Active Member Role Status Dates Aiden Clements MD Family Provider Active No Primary Care Physician Primary Care Provider Active Team Status: Inactive Member Role Status Dates No Primary Care Physician Primary Care Provider, Refer ring Provider Active MAURICE Lopez Attending Provider Active Team Status: Inactive Member Role Status Dates No Primary Care Physician Primary Care Provider, Refer ring Provider Active MAURICE Villasenor Attending Provider Active Team Status: Inactive Member Role Status Dates No Primary Care Physician Primary Care Provider Active MAURICE Villasenor Attending Provider Active Family Services Worker Relationship Specialty Start Date End Date Marty Moyer MD PCP - General 09/28/19 Family Services Worker Relationship Specialty Start Date End Date Marty Moyer MD PCP - General 09/28/19 Family Services Worker Relationship Specialty Start Date End Date Xiang Rodriguez MD [address] [place] [address] PCP - General Family Medicine 02/07/24 Family Services Worker Relationship Specialty Start Date End Date Xiang Rodriguez MD [address] [facility] [place] [address] PCP - General Family Medicine 02/07/24 Family Services Worker Relationship Specialty Start Date End Date Xiang Rodriguez MD [address] [place] [address] PCP - General Family Medicine 02/07/24 Family Services Worker Relationship Specialty Start Date End Date Xiang Rodriguez MD PCP - General Family Medicine 02/07/24 Family Services Worker Relationship Specialty Start Date End Date Xiang Rodriguez MD PCP - General Family Medicine 02/07/24 Family Services Worker Relationship Specialty Start Date End Date Xiang Rodriguez MD [address] [place] [address] PCP - General Family Medicine 02/07/24 Family Services Worker Relationship Specialty Start Date End Date Xiang Rodriguez MD [address] [place] [id number] PCP - [facility] Medicine 09/11/24 Team Status: Active Member Role [...] December 25, 2024 End: December 25, 2024 Family Services Worker Relationship Specialty Start Date End Date Xiang Rodriguez MD [address] [place] [id number] PCP - [facility] Medicine 09/11/24 Team Status: Inactive Member Role Status Dates Dr. Xiang Rodriguez MD Primary Care Provider Active Start: April 03, 2025 End: April 03, 2025 Dr. Anthony Cordova MD Attending Provider Active Start: April 03, 2025 End: April 03, 2025 Dr. Anthony Cordova MD Referring Provider Active Start: April 03, 2025 End: April 03, 2025 Goals (unrecognized section and content) Goals may be documented in a n alternate sectionGoals may be documented in an alternate sectionGoals may be documented in an [...] Expiration Date V isits Requested Visits Authorized [id number] Authorized 03/06/2024 03/06/2025 1 1 Reason Comments [...] Specialty Diagnoses / Procedures Referred By Jaki [email or web address] Referred To Contact Gastroenterology Diagnoses Gastroesophageal reflux disease with esophagitis without hemorrhage Xiang Rodriguez MD [facility] [place] [address] Phone: tel: fax: Referral ID Status Reason Start Date Expiration Date Visits Requested Visits Authorized [id number] Authorized Specialty Services Required 09/11/2025 1 1 [...] BE BASED ON THE PRIMARY CLINICAL RECORDS. [employer] provides no warranty or guarantee of the accuracy or completeness of information in this document.
[2025-06-12 08:59] LABS: AST(SGOT) 22 U/L (<=37); Alanine Aminotransfer ALT/SGPT 20 U/L (<=46); Albumin, Serum 4.9 g/dL (3.5-5.0); Alkaline Phosphatase 41 U/L (40-129); Bilirubin, Direct 0.25 mg/dL (0.00-0.30); Globulin 2.5 g/dL (2.2-4.2)
[2025-06-12 10:30] LABS: Cholesterol 270 mg/dL (<=200); Low Density Lipoprotein Calc. 207 mg/dL; Triglycerides 73 mg/dL; Very Low Density Lipoprotein 15 mg/dL (5-40); cholesterol:hdl ratio screen 5.54
== END | disposition home or self-care (01) ==
LOC: LAB 07:03
PROVIDERS: PCP Family Medicine; Referring Provider Dermatology; Visit Provider Dermatology
DX: L70.0 Acne vulgaris (principal)
CPT/HCPCS: 36415; 80061; 80076

== ENCOUNTER → 2025-07-31 | Outpatient (CLI) | payer OTHER, SELFPAY ==
--- OUTSIDE RECORDS SUMMARY | 2025-07-31 08:20 | XMS RPT_ITS | CCD ---
Author Organization [facility] Providers Care Title Searcher Name Role Phone Marty Moyer Unavailable Unavailable Marty Moyer Unavailable Unavailable Marty Moyer Unavailable [phone] Unavailable Unavailable Care Physician, No Primary Primary Care Provider Unavailable Care Physician, No Primary Referring Provider Un available MAURICE Fortune Attending Provider MAURICE Larry Attending Provider [phone] Marty Moyer MD Primary Care Provider Xiang Rodriguez MD Primary Care Provider [phone] MARTY MOYER Primary Care Unavailable FURNESS, XIANG T Primary Care Unavailable FURNESS, XIANG T Primary Care Unavailable Xiang Rodriguez MD Primary Care Provider Xiang Rodriguez MD Primary Care Provider Dr. William Velez DO Attending Provider Dr. William Velez DO Referring Provider Dr. Xiang Rodriguez MD Primary Care Provider [phone] Dr. Anthony Cordova MD Attending Provider Dr. Anthony Cordova MD Referring Provider Dr. Xiang Rodriguez MD Primary Care Provider [phone] Anthony Cordova Attending Unavailable Anthony Cordova Referring Unavailable Furness, Xiang Primary Care Unavailable Furness, Xiang Primary Care Unavailable William Velez Attending Unavailable William Velez Referring Unavailable Furness, Xiang Primary Care Unavailable William Velez Attending Unavailable William Velez Referring Unavailable Anthony Cordova Attending Unavailable Anthony Cordova Referring Unavailable Furness, Xiang Primary Care Unavailable COREY SANTIAGO Attending Unavailable FURNESS, XIANG T Primary Care Unavailable FURNESS, XIANG T Attending Unavailable FURNESS, XIANG T Referring Unavailable FURNESS, XIANG T Primary Care Unavailable HELENWILLIAM LEE Attending Unavailable FURNESS, XIANG T Referring Unavailable FURNESS, XIANG T Primary Care Unavailable COREY SANTIAGO Attending Unavailable FURNESS, XIANG T Primary Care Unavailable Medications Current Medications Medication Drug Class(es) Dates Sig (Normalized) Sig (Original) ciprofloxacin 500 mg oral tablet (4 sources) Quinolone Antimicrobial Start: 01-13-2024 take 1 tablet by mouth twice daily Ciprofloxacin Hcl (Cipro) 500 mg tablet Active 500 mg PO TWICE A DAY 14 0 January 13, 2024 12:00am ibuprofen 600 mg oral tablet (2 sources) Nonsteroidal Anti-inflammatory Drug Start: 01-22-2024 End: 02-01-2024 take 1 tablet by mouth twice daily ibuprofen 600 mg tablet Indications: Hx of prostatitis Take 1 tablet (600 mg) by mouth 2 times a day for 10 days. 20 tablet 0 01/22/2024 02/01/2024 Active [place] (Nk) (4 sources) Start: 01-13-2024 [place] (Nk) Active January 13, 2024 12:00am ondansetron [...] without bleeding] Onset: 01-31-2024 Hyperplasia of prostate (10 sources) Benign prostatic hypertrophy with outflow obstruction; [...] source) Acne vulgaris; Translations: [Acne vulgaris] Onset: 06-18-2025 Episodic Past or Other Problems Problem Classification [...] [Other fatigue] Onset: 01-31-2024 01-31-2024 Episodic Other male genital disorders (2 sources) Personal history of other diseases of male genital organs; Translations: [Personal history of other diseases of male genital organs] Onset: 01-22-2024 Episodic Unclassified (6 sources) Onset: 03-06-2024 03-06-2024 Urinary tract infections (11 sources) Urinary tract infectious disease; Translations: [Urinary tract infection, site not specified] Onset: 01-22-2024 01-22-2024 Episodic Results Test Name Value Interpretation Reference Range Facility Bilirubin directOrdered By: Anthony Cordova on 06-12-2025 Bilirubin.direct [Mass/Vol] 0.25 mg/dL 0.00-0.30 [facility] Bilirubin, totalOrdered By: Anthony Cordova on 06-12-2025 Bilirubin [Mass/Vol] 0.77 mg/dL 0.00-1.30 [facility] Calculated very low density lipoprotein (VLDL) cholesterol measurementOrdered By: Anthony Cordova on 06-12-2025 Calculated very low density lipoprotein (VLDL) cholesterol measurement 15 mg/dL 5-40 [facility] LDL calc ser/plasOrdered By: Anthony Cordova on 06-12-2025 Cholesterol in LDL [Mass/Vol] 207 mg/dL [facility] Comment on above: Vmbgqmnbza=957-510 m g/dL & Higher Jqyt=569 mg/dL or greaterFriedwald Equation for LDL-C Laboratory - Chemistry and C hemistry - challengeOrdered By: Anthony Cordova on 06-12-2025 AST [Catalytic activity/Vol] 22 U/L <38 [facility] Lipid Profileon 06-12-2025 CHOL:HDL 5.54 Normal [facility] Comment on above: Performed By: #### L 500.4100, L500.3400 #### [facility] [address] [place], [address] Cholesterol [Mass/Vol] 270 mg/dL High <=200 [facility] Comment on above: Result Comment: Chol esterol level, Desirable <200 mg/dL Borderline high cholesterol 200-239 mg/dL High cholesterol >=240 mg/dL Recommendations of the NCEP Adult Treatment Panel for the following risk-cutoff thresholds for the [place] population. Performed By: #### L 500.4100, L500.3400 #### [facility] [address] [place], [address] Cholesterol in HDL [Mass/Vol] 49 mg/dL Normal [facility] Comment on above: Result Comment: Bekah onal Cholesterol Education Program (NCEP) guidelines: <40 mg/dL: Low HDL-cholesterol (major risk factor for CHD) >= 60 mg/dL: High HDL-cholesterol (negative risk factor for CHD) HDL-cholesterol is affected by a number of factors, e.g. smoking, exercise, hormones, sex and age. Performed By: #### L 500.4100, L500.3400 #### [facility] [address] [place], [address] Cholesterol in LDL [Mass/Vol] 207 mg/dL Normal [facility] Comment on above: Result Comment: Bord yxfkbp=623-449 mg/dL Higher Cjgf=094 mg/dL or greater Friedwald Equation for LDL-C Performed By: #### L 500.4100, L500.3400 #### [facility] [address] [place], [address] Cholesterol in VLDL [Mass/Vol] 15 mg/dL Normal 5-40 [facility] Comment on above: Performed By: #### L 500.4100, L500.3400 #### [facility] [address] [place], [address] Triglyceride [Mass/Vol] 73 mg/dL Normal [facility] Comment on above: Result Comment: The drugs N-Acetylcysteine and Metamizole may falsely depress this assay. Normal range: <150 mg/dL Borderline High: 150-199 mg/dL High: 200-499 mg/dL Very High: >500 mg/dL Performed By: #### L 500.4100, L500.3400 #### [facility] [address] [place], [address] Liver Profileon 06-12-2025 Albumin [Mass/Vol] 4.9 g/dL Normal 3.5-5.0 [facility] Comment on above: Performed By: #### L 500.4100, L500.3400 #### [facility] [address] [place], [address] ALK PHOS 41 U/L Normal 40-129 [facility] Comment on above: Performed By: #### L 500.4100, L500.3400 #### [facility] [address] [place], [address] ALT [Catalytic activity/Vol] 20 U/L Normal <=46 [facility] Comment on above: Performed By: #### L 500.4100, L500.3400 #### [facility] [address] [place], [address] AST [Catalytic activity/Vol] 22 U/L Normal <=37 [facility] Comment on above: Performed By: #### L 500.4100, L500.3400 #### [facility] [address] [place], [address] Bilirubin [Mass/Vol] 0.77 mg/dL Normal 0.00-1.30 [facility] Comment on above: Performed By: #### L 500.4100, L500.3400 #### [facility] [address] [place], [address] Bilirubin.direct [Mass/Vol] 0.25 mg/dL Normal 0.00-0.30 [facility] Comment on above: Performed By: #### L 500.4100, L500.3400 #### [facility] [address] [place], [address] Globulin (S) [Mass/Vol] 2.5 g/dL Normal 2.2-4.2 [facility] Comment on above: Performed By: #### L 500.4100, L500.3400 #### [facility] [address] [place], [address] T PROT 7.4 g/dL Normal 5.9-8.4 [facility] Comment on above: Performed By: #### L 500.4100, L500.3400 #### [facility] [address] [place], [address] Screening total cholesterol/ high density lipoprotein (HDL) cholesterol ratioOrdered By: Anthony Cordova on 06-12-2025 Cholesterol.total/Choles terol in HDL [Mass ratio] 5.54 {ratio} [facility] Serum globulin measurementOr dered By: Anthony Cordova on 06-12-2025 Globulin (S) [Mass/Vol] 2.5 g/dL 2.2-4.2 [facility] Serum or plasma alanine smith otransferase (ALT) measurementOrdered By: Anthony Cordova on 06-12-2025 ALT [Catalytic activity/Vol] 20 U/L <47 [facility] Serum or plasma albumin enrike urement (mass/volume)Ordered By: Anthony Cordova on 06-12-2025 Albumin [Mass/Vol] 4.9 g/dL 3.5-5.0 [facility] Serum or plasma alkaline jeremy sphatase measurementOrdered By: Anthony Cordova on 06-12-2025 ALP [Catalytic activity/Vol] 41 U/L 40-129 [facility] Serum or plasma cholesterol in HDL measurement (mass/volume)Ordered By: Anthony Cordova on 06-12-2025 Cholesterol in HDL [Mass/Vol] 49 mg/dL >40 [facility] Comment on above: National Cholesterol Education Program (NCEP) guidelines:<40 mg/dL: Low HDL-cholesterol (major risk factor for CHD)>= 60 mg/dL: High HDL-cholesterol (negative risk factor for CHD)HDL-cholesterol is affected by a number of factors, e.g. smoking, exercise, hormones, sex and age. Serum or plasma cholesterol measurement (mass/volume)Ordered By: Anthony Cordova on 06-12-2025 Cholesterol [Mass/Vol] 270 mg/dL High <201 [facility] Comment on above: Cholesterol level, D esirable <200 mg/dLBorderline high cholesterol 200-239 mg/dLHigh cholesterol >=240 mg/dLRecommendations of the NCEP Adult Treatment Panel for the following risk-cutoff thresholds for the [place] population. Total proteinOrdered By: Murali Cordova on 06-12-2025 Protein [Mass/Vol] 7.4 g/dL 5.9-8.4 [facility] Triglycerides measurementOrd ered By: Anthony Cordova on 06-12-2025 Triglyceride [Mass/Vol] 73 mg/dL <199 [facility] Comment on above: The drugs N-Acetylcy steine and Metamizole may falsely depress this assay. Normal range: <150 mg/dLBorderline High: 150-199 mg/dLHigh: 200-499 mg/dLVery High: >500 mg/dL LDL, Directon 04-04-2025 Cholesterol in LDL [Mass/Vol] 173 mg/dL High 0-99 [facility] Comment on above: Order Comment: Y Result Comment: Perf ormed at: [facility] [address] [id number] Manuscript Editor: Abebe Jones PhD, Phone: [phone] Performed By: #### L 501.4100, L3300.4490, L501.4405, L500.4100 #### [facility] [address] [place], [address] COMMENT TNP Normal . [facility] Comment on above: Order Comment: Y Performed By: #### L 501.4100, L3300.4490, L501.4405, L500.4100 #### [facility] [address] [place], [address] AST(SGOT)on 04-03-2025 AST [Catalytic activity/Vol] 18 U/L Normal <=37 [facility] Comment on above: Performed By: #### L 501.4100, L3300.4490, L501.4405, L500.4100 #### [facility] [address] [place], [address] Alanine Aminotransferas (SGP T)on 04-03-2025 ALT [Catalytic activity/Vol] 15 U/L Normal <=46 [facility] Comment on above: Performed By: #### L 501.4100, L3300.4490, L501.4405, L500.4100 #### [facility] [address] [place], [address] Calculated very low density lipoprotein (VLDL) cholesterol measurementOrdered By: Anthony Cordova on 04-03-2025 Calculated very low density lipoprotein (VLDL) cholesterol measurement 21 mg/dL 5-40 [facility] Cholesterol in LDL Direct as say [Mass/Vol]Ordered By: Anthony Cordova on 04-03-2025 Cholesterol in LDL [Mass/Vol] 173 mg/dL High 0-99 [facility] Comment on above: Performed at: [address] [id number] Director: Abebe Jones PhD, Phone: [phone] LDL calc ser/plasOrdered By: Anthony Cordova on 04-03-2025 Cholesterol in LDL [Mass/Vol] 163 mg/dL [facility] Comment on above: Ctjvmcibhq=307-179 m g/dL & Higher Epbg=510 mg/dL or greater Laboratory - Chemistry and C hemistry - challengeOrdered By: Anthony Cordova on 04-03-2025 AST [Catalytic activity/Vol] 18 U/L <38 [facility] - Miscellaneous t estsOrdered By: Anthony Cordova on 04-03-2025 Service comment (Unsp spec) [Interp] TNP [facility] Comment on above: Test not performed Lipid Profileon 04-03-2025 CHOL:HDL 5.84 Normal [facility] Comment on above: Performed By: #### L 501.4100, L3300.4490, L501.4405, L500.4100 #### [facility] [address] [place], [address] Cholesterol [Mass/Vol] 222 mg/dL High <=200 [facility] Comment on above: Result Comment: Chol esterol level, Desirable <200 mg/dL Borderline high cholesterol 200-239 mg/dL High cholesterol >=240 mg/dL Recommendations of the NCEP Adult Treatment Panel for the following risk-cutoff thresholds for the [place] population. Performed By: #### L 501.4100, L3300.4490, L501.4405, L500.4100 #### [facility] [address] [place], [address] Cholesterol in HDL [Mass/Vol] 38 mg/dL Low [facility] Comment on above: Result Comment: Bekah onal Cholesterol Education Program (NCEP) guidelines: <40 mg/dL: Low HDL-cholesterol (major risk factor for CHD) >= 60 mg/dL: High HDL-cholesterol (negative risk factor for CHD) HDL-cholesterol is affected by a number of factors, e.g. smoking, exercise, hormones, sex and age. Performed By: #### L 501.4100, L3300.4490, L501.4405, L500.4100 #### [facility] [address] [place], [address] Cholesterol in LDL [Mass/Vol] 163 mg/dL Normal [facility] Comment on above: Result Comment: Bord gyfmdk=961-052 mg/dL Higher Hkjp=965 mg/dL or greater Performed By: #### L 501.4100, L3300.4490, L501.4405, L500.4100 #### [facility] [address] [place], [address] Cholesterol in VLDL [Mass/Vol] 21 mg/dL Normal 5-40 [facility] Comment on above: Performed By: #### L 501.4100, L3300.4490, L501.4405, L500.4100 #### [facility] [address] [place], [address] Triglyceride [Mass/Vol] 104 mg/dL Normal [facility] Comment on above: Result Comment: The drugs N-Acetylcysteine and Metamizole may falsely depress this assay. Normal range: <150 mg/dL Borderline High: 150-199 mg/dL High: 200-499 mg/dL Very High: >500 mg/dL Performed By: #### L 501.4100, L3300.4490, L501.4405, L500.4100 #### [facility] [address] [place], [address] Screening total cholesterol/ high density lipoprotein (HDL) cholesterol ratioOrdered By: Anthony Cordova on 04-03-2025 Cholesterol.total/Choles terol in HDL [Mass ratio] 5.84 {ratio} [facility] Serum or plasma alanine smith otransferase (ALT) measurementOrdered By: Anthony Cordova on 04-03-2025 ALT [Catalytic activity/Vol] 15 U/L <47 [facility] Serum or plasma cholesterol in HDL measurement (mass/volume)Ordered By: Anthony Cordova on 04-03-2025 Cholesterol in HDL [Mass/Vol] 38 mg/dL Low >40 [facility] Comment on above: National Cholesterol Education Program (NCEP) guidelines:<40 mg/dL: Low HDL-cholesterol (major risk factor for CHD)>= 60 mg/dL: High HDL-cholesterol (negative risk factor for CHD)HDL-cholesterol is affected by a number of factors, e.g. smoking, exercise, hormones, sex and age. Serum or plasma cholesterol measurement (mass/volume)Ordered By: Anthony Cordova on 04-03-2025 Cholesterol [Mass/Vol] 222 mg/dL High <201 [facility] Comment on above: Cholesterol level, D esirable <200 mg/dLBorderline high cholesterol 200-239 mg/dLHigh cholesterol >=240 mg/dLRecommendations of the NCEP Adult Treatment Panel for the following risk-cutoff thresholds for the [place] population. Triglycerides measurementOrd ered By: Anthony Cordova on 04-03-2025 Triglyceride [Mass/Vol] 104 mg/dL <199 [facility] Comment on above: The drugs N-Acetylcy steine and Metamizole may falsely depress this assay. Normal range: <150 mg/dLBorderline High: 150-199 mg/dLHigh: 200-499 mg/dLVery High: >500 mg/dL HEMOGLOBIN + HEMATOCRITon HEMATOCRIT Normal [facility] Comment on above: Order Comment: FASTI NG:NO FASTING: NO Performed By: #### 5 363, 174, 6086 #### [facility] [address], [address] [place] [id number] Silo Operator: Dwight Randall MD HEMOGLOBIN Normal [facility] Comment on above: Order Comment: FASTI NG:NO FASTING: NO Performed By: #### 5 363, 873, 7998 #### [facility] [place] [address] Silo Operator: Dwight Randall MD PSA, TOTALon 02-06-2025 PSA, TOTAL 0.42 ng/mL Normal < OR = 4.00 [facility] Comment on above: Result Comment: The [...] 5 363, 873, 7998 #### [facility] [address], [address] [place] [address] Silo Operator: Dwight Randall MD TESTOSTERONE, TOTAL, MALES ( ADULT), IAon 02-06-2025 TESTOSTERONE, TOTAL, MALES (ADULT), IA 1152 ng/dL High 250-827 [facility] Comment on above: Performed By: #### 5 363, 873, 7998 #### [facility] [address], [address] [place] [address] Silo Operator: Dwight Randall MD H. PYLORI STOOL AGon 025 H PYLORI STL AG Negative Normal Negative [facility] Comment on above: Performed By: #### L 3100.1950 #### [facility] [address] [place], [place], [id number] H. pylori Ag IA Ql (Stl)Orde red By: William Velez on 12-25-2024 Stool Helicobacter pylori Antigen Negative Negative [facility] Stool Helicobacter pylori an tigen detection by immunoassayOrdered By: William Velez on 12-25-2024 H. pylori Ag IA Ql (Stl) Negative Negative [facility] Abdomen Limitedon 12-19-[address] Abdomen [address] [facility] [address] [place], [place] [address] Abdomen Limited MR#: [id number] Acct: [id number] Name: FAN THOMAS Rep #: [id number] : 1985 M 39 From: Vasile Fitch MD PCP: Dr. Xiang Rodriguez MD Status: REG CLI Study: Abdomen Limited Date of Exam: 12/19/24 Exam# [id number] Ordering Dr: William Velez DO PROCEDURE: ULTRASOUND [...] William Velez DO; Dr. Xiang Rodriguez MD Bioinformatics Technician: Signed Normal [facility] Hemoglobin and Hematocrit pa suzanna (Bld)on 08-05-2024 Hematocrit (Bld) [Volume fraction] 43.3 % Normal 41.0-52.0 [facility] Comment on above: Performed By: #### 2 4360-0 #### CONCHIS VELAZQUEZ ([id number]) [facility] [address] [place] [address] Hemoglobin (Bld) [Mass/Vol] 15.1 g/dL Normal 13.5-17.5 [facility] Comment on above: Performed By: #### 2 4360-0 #### CONCHIS VELAZQUEZ ([id number]) [facility] [address] [place] [address] Prostate specific Agon 08-05 Prostate specific Ag [Mass/Vol] 0.59 ng/mL Normal <=4.00 [facility] Comment on above: Order Comment: The F DA requires that the method used for PSA assay be reported to the physician. Values obtained with different assay methods must not be used interchangeably. This test was performed at [facility] using the Access Book[employer] PSA assay is a two-site immunoenzymatic sandwich assay. The assay is approved for measurement of prostate-specific antigen (PSA)in serum and may be used in conjunction with a digital rectal examination in men 50 years and older as an aid in detection of prostate cancer. 6-Wsarj-nrefrfanm inhibitors (e.g. Proscar, Finasteride, Avodart, Dutasteride and Josseline) for the treatment of BPH have been shown to lower PSA levels by an average of 50% after 6 months of treatment. Performed By: #### 2 857-1 #### CONCHIS VELAZQUEZ ([id number]) [facility] [address] [place] [address] Testosteroneon 08-05-2024 Testosterone [Mass/Vol] 1074 ng/dL High 240-1000 [facility] Comment on above: Order Comment: Nandr olone decanoate, 11 Beta-hydroxytestosterone, androstenedione, testosterone propionate and 90-bjdl-qmltohcyqbpk strongly cross react with this test method. Biotin interference may cause falsely elevated results. Patients taking a Biotin dose of up to 5 mg/day should refrain from taking Biotin for 24 hours before sample collection. Providers may contact their local laboratory for further information. Performed By: #### 2 986-8 #### BLANCA Dias ([id number]) [facility] ([facility]) [address] [place] [address] Testosterone Free/Testostero ne.total [Mass fraction]on 02-26-2024 Testosterone [Mass/Vol] 403 ng/dL Normal 250-1100 [facility] Comment on above: Result Comment: For additional information, please refer to http://education.[employer]/faq/ [email or web address] (This link is being provided for informational/ educational purposes only.) This test was developed and its analytical performance characteristics have been determined by [facility] [place], [place]. It has not been cleared or approved by the U.S. Food and Drug Administration. This assay has been validated pursuant to the CLIA regulations and is used for clinical purposes. Performed By: #### 1 5432-8 #### QUEST KARUNATL ([id number]) [address] [place] Testosterone Free [Mass/Vol] 52.0 pg/mL Normal 35.0-155.0 [facility] Comment on above: Result Comment: This test was developed and its analytical performance characteristics have been determined by [facility] [place], [place]. It has not been cleared or approved by the U.S. Food and Drug Administration. This assay has been validated pursuant to the CLIA regulations and is used for clinical purposes. Performed By: #### 1 5432-8 #### QUEST TYLER ([id number]) [address] [place] CBC panel Auto (Bld)on 01-30 Erythrocyte distribution width (RBC) [Ratio] 12.8 % Normal 11.5-14.5 [facility] Comment on above: Performed By: #### 5 8410-2 #### CONCHIS VELAZQUEZ ([id number]) [facility] [address] [place] [address] Hematocrit (Bld) [Volume fraction] 42.8 % Normal 41.0-52.0 [facility] Comment on above: Performed By: #### 5 8410-2 #### CONCHIS VELAZQUEZ ([id number]) [facility] [address] [place] [address] Hemoglobin (Bld) [Mass/Vol] 14.4 g/dL Normal 13.5-17.5 [facility] Comment on above: Performed By: #### 5 8410-2 #### CONCHIS VELAZQUEZ ([id number]) [facility] [address] [place] [address] MCH (RBC) [Entitic mass] 29.1 pg Normal 26.0-34.0 [facility] Comment on above: Performed By: #### 5 8410-2 #### CONCHIS VELAZQUEZ ([id number]) [facility] [address] [place] [address] MCHC (RBC) [Mass/Vol] 33.6 g/dL Normal 32.0-36.0 [facility] Comment on above: Performed By: #### 5 8410-2 #### CONCHIS VELAZQUEZ ([id number]) [facility] [address] [place] [address] MCV (RBC) [Entitic vol] 87 fL Normal 80-100 [facility] Comment on above: Performed By: #### 5 8410-2 #### CONCHIS VELAZQUEZ ([id number]) [facility] [address] [place] [address] Nucleated RBC/100 WBC (Bld) [Ratio] 0.0 /100 WBCs Normal 0.0-0.0 [facility] Comment on above: Performed By: #### 5 8410-2 #### CONCHIS VELAZQUEZ ([id number]) [facility] [address] [place] [address] Platelets (Bld) [#/Vol] 254 x10*3/uL Normal 150-450 [facility] Comment on above: Performed By: #### 5 8410-2 #### CONCHIS VELAZQUEZ ([id number]) [facility] [address] [place] [address] RBC (Bld) [#/Vol] 4.95 x10*6/uL Normal 4.50-5.90 [facility] Comment on above: Performed By: #### 5 8410-2 #### CONCHIS VELAZQUEZ ([id number]) [facility] [address] [place] [address] 67010 WBC (Bld) [#/Vol] 6.6 x10*3/uL Normal 4.4-11.3 [facility] Comment on above: Performed By: #### 5 8410-2 #### CONCHIS VELAZQUEZ ([id number]) [facility] ([place] [address] [place] [address] 01868 Cobalaminson 01-31-2024 Cobalamin (Vitamin B12) [Mass/Vol] 429 pg/mL Normal 211-911 [facility] Comment on above: Performed By: #### 2 132-9 #### CONCHIS VELAZQUEZ ([id number]) [facility] ([place] [address] [place], [place] [id number] Comprehensive metabolic 2000 panelon 01-31-2024 Albumin BCP dye [Mass/Vol] 5.1 g/dL High 3.4-5.0 [facility] Comment on above: Performed By: #### 2 4323-8 #### CONCHIS VELAZQUEZ ([id number]) [facility] [address] [place] [address] 96884 ALP [Catalytic activity/Vol] 44 U/L Normal 33-120 [facility] Comment on above: Performed By: #### 2 4323-8 #### CONCHIS VELAZQUEZ ([id number]) [facility] [address] [place] [address] 83891 ALT With P-5'-P [Catalytic activity/Vol] 46 U/L Normal 10-52 [facility] Comment on above: Result Comment: Maty ents treated with Sulfasalazine may generate falsely decreased results for ALT. Performed By: #### 2 4323-8 #### CONCHIS VELAZQUEZ ([id number]) [facility] [address] [place] [address] 25135 Anion gap [Moles/Vol] 9 mmol/L Low 10-20 [facility] Comment on above: Performed By: #### 2 4323-8 #### CONCHIS VELAZQUEZ ([id number]) [facility] [address] [place] [address] 61582 AST With P-5'-P [Catalytic activity/Vol] 22 U/L Normal 9-39 [facility] Comment on above: Performed By: #### 2 4323-8 #### CONCHIS VELAZQUEZ ([id number]) [facility] [address] [place] [address] 67387 Bilirubin [Mass/Vol] 0.5 mg/dL Normal 0.0-1.2 [facility] Comment on above: Performed By: #### 2 4323-8 #### CONCHIS VELAZQUEZ ([id number]) [facility] [address] [place] [address] Calcium [Mass/Vol] 9.5 mg/dL Normal 8.6-10.3 [facility] Comment on above: Performed By: #### 2 4323-8 #### CONCHIS VELAZQUEZ ([id number]) [facility] [address] [place] [address] 03489 Chloride [Moles/Vol] 104 mmol/L Normal 98-107 [facility] Comment on above: Performed By: #### 2 4323-8 #### CONCHIS VELAZQUEZ ([id number]) [facility] [address] [place] [address] 78456 CO2 [Moles/Vol] 29 mmol/L Normal 21-32 [facility] Comment on above: Performed By: #### 2 4323-8 #### CONCHIS VELAZQUEZ ([id number]) [facility] [address] [place] [address] 53932 Creatinine [Mass/Vol] 1.02 mg/dL Normal 0.50-1.30 [facility] Comment on above: Performed By: #### 2 4323-8 #### CONCHIS VELAZQUEZ ([id number]) [facility] [address] [place] [address] 73986 GFR/1.73 sq M.predicted MDRD (S/P/Bld) [Vol rate/Area] mL/min/{1.73_m2} Normal >60 [facility] Comment on above: Result Comment: Calc ulations of estimated GFR are performed using the 2020 CKD-EPI Study Refit equation without the race variable for the IDMS-Traceable creatinine methods. https://jasn.asnjournals.org/content//ASN.041 8509276 Performed By: #### 2 4323-8 #### CONCHIS VELAZQUEZ ([id number]) [facility] [address] [place] [address] Glucose [Mass/Vol] 81 mg/dL Normal 74-99 [facility] Comment on above: Performed By: #### 2 432-8 #### CONCHIS VELAZQUEZ ([id number]) [facility] [address] [place] [address] 00613 Potassium [Moles/Vol] 4.4 mmol/L Normal 3.5-5.3 [facility] Comment on above: Performed By: #### 2 432-8 #### CONCHIS VELAZQUEZ ([id number]) [facility] [address] [place] [address] 55956 Protein [Mass/Vol] 7.5 g/dL Normal 6.4-8.2 [facility] Comment on above: Performed By: #### 2 432-8 #### CONCHIS VELAZQUEZ ([id number]) [facility] [address] [place] [address] 60742 Sodium [Moles/Vol] 138 mmol/L Normal 136-145 [facility] Comment on above: Performed By: #### 2 432-8 #### CONCHIS VELAZQUEZ ([id number]) [facility] [address] [place] [address] 56677 Urea nitrogen [Mass/Vol] 16 mg/dL Normal 6-23 [facility] Comment on above: Performed By: #### 2 432-8 #### CONCHIS VELAZQUEZ ([id number]) [facility] [address] [place] [address] 91103 Magnesiumon 01-31-2024 Magnesium [Mass/Vol] 2.09 mg/dL Normal 1.60-2.40 [facility] Comment on above: Performed By: #### 1 9123-9 #### CONCHIS VELAZQUEZ ([id number]) [facility] [address] [place] [address] 91604 Thyrotropinon 01-31-2024 TSH Qn 1.77 m[IU]/L Normal 0.44-3.98 [facility] Comment on above: Order Comment: TSH t esting is performed using different testing methodology at [facility] than at other [place] [facility]. Direct result comparisons should only be made within the same method. Performed By: #### 3 016-3 #### CONCHIS VELAZQUEZ ([id number]) [facility] [address] [place] [address] Triacylglycerol lipaseon Lipase [Catalytic activity/Vol] 29 U/L Normal 9-82 [facility] Comment on above: Order Comment: Venip uncture immediately after or during the administration of Metamizole may lead to falsely low results. Testing should be performed immediately prior to Metamizole dosing. Performed By: #### 3 040-3 #### CONCHIS VELAZQUEZ ([id number]) [facility] [address] [place] [address] 11993 Basophil percentageOrdered B y: Lane Sánchez on 01-13-2024 Basophil percentage 0 SEEN /hpf 0-5 [facility] Bilirubin Test strip Ql (U)O rdered By: Lane Sánchez on 01-13-2024 Bilirubin Ql (U) Negative Negative [facility] Culture, urineOrdered By: St latrice Sánchez on 01-13-2024 Bacteria identified Cx Nom (U) Culture exhibits no growth. [facility] Ketones Test strip Ql (U)Ord ered By: Lane Sánchez on 01-13-2024 Ketones Ql (U) Negative Negative [facility] - Chemistry and C hemistry - challengeon 01-13-2024 Bilirubin Ql (U) Negative [facility] Glucose Ql (U) Negative [facility] Ketones Ql (U) Trace (5) [facility] pH (U) 7.5 [pH] [facility] Specific gravity (U) [Rel density] 1.010 [facility] Urobilinogen (U) [Mass/Vol] 0.4895415 mg/dL [facility] - Hematology and Cell countson 01-13-2024 Hemoglobin Ql (U) Negative [facility] - Microbiology an d Antimicrobial susceptibilityon 01-13-2024 SARS-CoV-2 (COVID-19) RNA MARIA D+probe Ql (Unsp spec) Not detected [facility] - Specimen inform ationon 01-13-2024 Clarity (U) Cloudy [facility] Color (U) YELLOW [facility] - Urinalysison Nitrite Ql (U) Negative [facility] Protein Ql (U) Trace [facility] Mucus LM Ql (Urine sed)Order ed By: Lane Sánchez on 01-13-2024 Mucus Ql (Urine sed) 0 SEEN /hpf [facility] Nitrite Test strip Ql (U)Ord ered By: Lane Sánchez on 01-13-2024 Nitrite Ql (U) Negative Negative [facility] No Panel InformationOrdered By: Lane Sánchez on 01-13-2024 Urine RBC 0 SEEN /hpf 0-5 [facility] No Panel Informationon 01-12 POC Nasal Swab Influenza A,B Not detected [facility] POC Nasal Swab RSV Not detected [facility] Urine Leukocytes Positive [facility] Urine Non-Hemolyzed Blood Non-Hemolyzed [facility] Protein Test strip Ql (U)Ord ered By: Lane Sánchez on 01-13-2024 Protein Ql (U) Negative Negative [facility] Squamous epithelial cells de tection in urine sediment by light microscopyOrdered By: Lane Sánchez on 01-13-2024 Epithelial cells.squamous LM Ql (Urine sed) 0 SEEN /hpf 0-5 [facility] Urine blood detectionOrdered By: Lane Sánchez on 01-13-2024 RBC Ql (U) Negative Negative [facility] Urine clarityOrdered By: Will Sánchez on 01-13-2024 Clarity (U) Clear Clear [facility] Urine color determinationOrd ered By: Lane Sánchez on 01-13-2024 Color (U) Yellow Yellow [facility] Urine glucose detectionOrder ed By: Lane Sánchez on 01-13-2024 Glucose Ql (U) Normal mg/dl Normal [facility] Urine leukocyte esterase det ection by dipstickOrdered By: Lane Sánchez on 01-13-2024 Leukocyte esterase Test strip Ql (U) Negative Negative [facility] Urine pHOrdered By: Lane mckeon on 01-13-2024 pH (U) 8.0 [pH] 5.0 - 8.0 [facility] Urine sediment bacteria coun t by microscopy (number/high power field)Ordered By: Lane Sánchez on 01-13-2024 Bacteria LM.HPF (Urine sed) [#/Area] 0 /[HPF] None Seen [facility] Urine specific gravity measu rementOrdered By: Lane Sánchez on 01-13-2024 Specific gravity (U) [Rel density] 1.010 1.002-1.030 [facility] Urine urobilinogen measureme ntOrdered By: Lane Sánchez on 01-13-2024 Urobilinogen Ql (U) Normal mg/dl Normal [facility] - Microbiology an d Antimicrobial susceptibilityon 11-28-2023 SARS-CoV-2 (COVID-19) RNA MARIA D+probe Ql (Unsp spec) Not detected [facility] No Panel Informationon 11-28 POC Nasal Swab Influenza A,B Detected [facility] POC Nasal Swab RSV Not detected [facility] Office Visit (Urology)on Follow-up visit Diagnoses/Problems [...] Aug 09 2021 3:50PM EST (Author) Normal [facility] Office Visit (Urology)on Follow-up visit Diagnoses/Problems Assessed Encounter for vasectomy assessment (V25.09) (Z30.09) Orders Encounter for vasectomy assessment Start: diazePAM 10 MG Oral Tablet; TAKE 1 TABLET 1 HOUR PRIOR TO PROCEDURE Rx By: Corey Santiago II; Dispense: 1 Days ; #:1 Tablet; Refill: 0;For: Encounter for vasectomy assessment; SURAJ = N; Sent To: [facility]; Last Updated By: Zari Ochoa; 06/19/2021 3:12:31 PM Follow-up visit in 1 month Outpatient Follow-up VASECTOMY Status: Hold For - Scheduling,Retrospec tive By Protocol Authorization Requested for: [id number] Ordered Stat;For: Encounter for vasectomy assessment; Ordered [...] Constitutional: No fever, No chills. Eye: Negative. Ear/Nose/Mouth/Throa t: Negative. Respiratory: No shortness of breath, No cough. Cardiovascular: No chest pain, No peripheral edema. Gastrointestinal: No nausea, Genitourinary: Negative except as documented in history of present illness. Hematology/Lymphatic s: Patient denies being on blood thinners.. Endocrine: [...] morning with food Vitals Vital Signs Recorded: [id number] 03:10PM Heart Rate88 Labcurqe946 Gjhzckais35 Height5 ft 10 in Xfycdy366 lb BMI Essjtpvgoq26.85 kg/m2 BSA Calculated2.15 Tobacco Useb) No Fall Screeninga) No falls within the last year Physical Exam A/O x 3 in No apparent distress Constitutional: General appearance normal Respiratory: Respiratory effort is normal Gastrointestinal:Abd omen is not tender Genitourinary: Kidneys: Not palpable Bilaterally Bladder: Not palpable or tender Scrotum: No mass. No Hydrocele Epididymis: No spermatocele. Not tender Testicles: no mass Urethra: No Discharge Penis: WNL...No lesions Seminal Vesicles: No mass Signatures Electronically signed by : Corey Santiago II, MD; Jun 19 2021 3:14PM EST (Author) Normal [facility] Tobacco Screening.on 021 Fall risk assessment a) No falls within the last year [facility] Work Phone: Tobacco use status [facility] b) No M [facility]qw [facility] Work Phone: CORONAVIRUS 2019 BY PCRon [...] patient management decisions. Fact sheet for providers: https://www.fda.gov/media/284168/download Fact sheet for patients: https://www.fda.gov/media/946234/download This test has received FDA Emergency Use Authorization (EUA) and has been verified by [facility] ([facility]). This test is only authorized for the duration of time that circumstances exist to justify the authorization of the emergency use of in vitro diagnostic tests for the detection of SARS-CoV-2 virus and/or diagnosis of COVID-19 infection under section 564(b)(1) of the Act, 21 U.S.C. 360bbb-3(b)(1), unless the authorization is terminated or revoked sooner. [facility] is certified under CLIA-88 as qualified to perform high complexity testing. Testing is performed in the [facility] laboratories located at [address] [place] [address]. COVID CALLED TO BLAIRE, 12/07/2020 15:39 Performed By: #### C OV19 #### [address] [place] [address] Clinical Event Noteon 2020 Clinical Event Note Clinical Event: Clinical Event Note: Details +covid called Details+covid called Electronic Signatures: Vasile Freeman (TERA) (Signed 07-Dec-2020 15:48) Authored: Clinical Event Note Last Updated: 07-Dec-2020 15:48 by Vasile Freeman (TERA) [facility] Covid 19 Resultson 1 SARS-CoV-2 (COVID-19) RNA [...] You may also be contacted by the [facility] to see if any [...] or Naproxen (Aleve) can also be used. Ezax-zph-iycnviu cough and cold medicines can be used according to the instructions on the package. Some oqee-ppr-ilbyudd medicines also contain acetaminophen. Make sure you [...] water are not available, use alcohol-based hand fire medic. Avoid touching your eyes, nose, and mouth [...] ibuprofen (Motrin) (more content not included)... Normal [facility] Provider Note - ED v2on 11-28 Provider Note - ED v2 Provider Note - ED v2: Chart Review: ED NOTES ED NOTES: Source of Information: Patient. EMR was reviewed for previous records. - HPI: This is a 35-year-old male presenting [...] taste or smell. He denies any diarrhea. - ROS: A minimum of 10 review of systems were reviewed and normal unless otherwise stated in HPI. - PMH: as noted PSH: as noted Fam: Noncontributory MEDS: Reviewed in EMR ALLERGIES: Reviewed in EMR - PHYSICAL EXAM: General: Well developed. Well nourished. [...] Maintains eye contact. Cooperative. Lymphatic: No adenopathy. - [Imaging: Imaging ordered. It was independently reviewed and interpreted by the attending ED physician. Prior to disposition, the radiologists impression(s) were reviewed.] - Hospital Course / Medical Decision Making: The [...] dictated by speech recognition. Minor errors in psychological examiner may be present. HISTORY OF PRESENTING ILLNESS [...] and medical, surgical, family and social history ALLERGIES/INTOLERANC ES: No Known Allergies HEALTH HISTORY: No documented data. O (more content not included)... Normal [facility] CORONAVIRUS 2019 BY PCRon Lab Specimen Source Nasal, Nasopharyngeal Normal [facility] Comment on above: Order Comment: COVID CALLED TO FREEMAN, 12/07/2020 15:39 Performed By: #### C OV19 #### [facility] [address] [place] [address] DATE OF SYMPTOM ONSET [YYYYMMDD]? [id number] Normal [facility] Comment on above: Order Comment: COVID CALLED TO FREEMAN, 12/07/2020 15:39 Performed By: #### C OV19 #### [facility] [address] [place] [address] Triage - EDon 12-06-2020 Triage - ED Quick Triage: The patient and/or guardian verbally acknowledges placement for services into the following (when Urgent Care Service hours are operating):emergency department Chart Review: ARRIVAL INFORMATION Mode of [...] obeys commands Best Verbal Response: (V5) oriented [place] Score: 15 Cough lasting greater than 3 [...] 06-Dec-2020 21:29 by Naheed Carrera (RN) [facility] CNOVon 01-08-2019 CNOV Office Visit ([facility]) FAN THOMAS ([id number]) 1985 M Date Time Provider Department 01/08/19 6:45 PM [facility] During your visit today, we recorded [...] XR ORAL) Take by mouth. No current facility-administere d medications for this visit. ALLERGIES: ALLERGIES No [...] Diagnosis:Sore throat [J02.9] Order(s):RAPID STREP TEST B/O [[id number]] Order #: [id number] Prescriptions as of 01/08/2019 Sig: EFFEXOR XR [...] Status:Closed by JAE SUAREZ MD on 01/08/19 [facility] PROGRESSon 01-08-2019 Protein mass conc HNO ID: [id number] Author: Jae Suarez Service: ? Author Type: [...] XR ORAL) Take by mouth. No current facility-administere d medications for this visit. ALLERGIES: ALLERGIES No [...] breathing or swallowing. Jae Suarez MD Normal [facility] Vital Signs Date Time Vital Sign Value Performing Clinician Facility 12-10-2024 14:48-0500 Body height 177.8 cm William Thomae DO Work Phone: [facility] 12-10-2024 14:48-0500 Body mass index (BMI) [Ratio] 25.6 kg/m2 William Thomae DO Work Phone: [facility] 12-10-2024 14:48-0500 Body weight 80.92 kg William Thomae DO Work Phone: [facility] 12-10-2024 14:48-0500 Diastolic blood pressure 81 mm[Hg] William Thomae DO Work Phone: [facility] 12-10-2024 14:48-0500 Heart rate 85 /min William Thomae DO Work Phone: [facility] 12-10-2024 14:48-0500 Respiratory rate 16 /min William Thomae DO Work Phone: [facility] 12-10-2024 14:48-0500 SaO2% (BldA) [Mass fraction] 98 % William Thomae DO Work Phone: [facility] 12-10-2024 14:48-0500 Systolic blood pressure 119 mm[Hg] William Thomae DO Work Phone: [facility] 09-11-2024 14:54-0500 Body height 177.8 cm Xiang Rodriguez MD Work Phone: [facility] 09-11-2024 14:54-0500 Body mass index (BMI) [Ratio] 27.38 kg/m2 Xiang Rodriguez MD Work Phone: [facility] 09-11-2024 14:54-0500 Body weight 86.55 kg Xiang Rodriguez MD Work Phone: [facility] 09-11-2024 14:54-0500 Diastolic blood pressure 74 mm[Hg] Xiang Rodriguez MD Work Phone: [facility] 09-11-2024 14:54-0500 Heart rate 87 /min Xiang Rodriguez MD Work Phone: [facility] 09-11-2024 14:54-0500 SaO2% (BldA) [Mass fraction] 96 % Xiang Rodriguez MD Work Phone: [facility] 09-11-2024 14:54-0500 Systolic blood pressure 116 mm[Hg] Xiang Rodriguez MD Work Phone: [facility] 08-12-2024 15:33-0400 Body mass index (BMI) [Ratio] 29.41 kg/m2 Corey Santiago MD Work Phone: [facility] 08-12-2024 15:33-0400 Body weight 92.99 kg Corey Santiago MD Work Phone: [facility] 08-12-2024 15:33-0400 Diastolic blood pressure 62 mm[Hg] Corey Santiago MD Work Phone: [facility] 08-12-2024 15:33-0400 Heart rate 71 /min Corey Santiago MD Work Phone: [facility] 08-12-2024 15:33-0400 Systolic blood pressure 132 mm[Hg] Corey Santiago MD Work Phone: [facility] 06-17-2024 15:40-0400 Body mass index (BMI) [Ratio] 28.84 kg/m2 Corey Santiago MD Work Phone: [facility] 06-17-2024 15:40-0400 Body weight 91.17 kg Corey Santiago MD Work Phone: [facility] 06-17-2024 15:40-0400 Diastolic blood pressure 74 mm[Hg] Corey Santiago MD Work Phone: [facility] 06-17-2024 15:40-0400 Respiratory rate 16 /min Corey Santiago MD Work Phone: [facility] 06-17-2024 15:40-0400 Systolic blood pressure 126 mm[Hg] Corey Santiago MD Work Phone: [facility] 03-06-2024 15:36-0400 Body height 177.8 cm Xiang Rodriguez MD Work Phone: [facility] 03-06-2024 15:36-0400 Body mass index (BMI) [Ratio] 29.56 kg/m2 Xiang Rodriguez MD Work Phone: [facility] 03-06-2024 15:36-0400 Body weight 93.44 kg Xiang Rodriguez MD Work Phone: [facility] 03-06-2024 15:36-0400 Diastolic blood pressure 78 mm[Hg] Xiang Rodriguez MD Work Phone: [facility] 03-06-2024 15:36-0400 Heart rate 78 /min Xiang Rodriguez MD Work Phone: [facility] 03-06-2024 15:36-0400 SaO2% (BldA) [Mass fraction] 99 % Xiang Rodriguez MD Work Phone: [facility] 03-06-2024 15:36-0400 Systolic blood pressure 126 mm[Hg] Xiang Rodriguez MD Work Phone: [facility] 02-26-2024 07:43-0400 Body mass index (BMI) [Ratio] 29.84 kg/m2 Corey Santiago MD Work Phone: [facility] 02-26-2024 07:43-0400 Body weight 94.35 kg Corey Santiago MD Work Phone: [facility] 02-26-2024 07:43-0400 Respiratory rate 16 /min Corey Santiago MD Work Phone: [facility] 01-31-2024 13:47-0400 Body height 177.8 cm Xiang Furness MD Work Phone: [facility] 01-31-2024 13:47-0400 Body mass index (BMI) [Ratio] 29.92 kg/m2 Xiang Rodriguez MD Work Phone: [facility] 01-31-2024 13:47-0400 Body weight 94.58 kg Xiang Rodriguez MD Work Phone: [facility] 01-31-2024 13:47-0400 Diastolic blood pressure 82 mm[Hg] Xiang Rodriguez MD Work Phone: [facility] 01-31-2024 13:47-0400 Heart rate 62 /min Xiang Rodriguez MD Work Phone: [facility] 01-31-2024 13:47-0400 SaO2% (BldA) [Mass fraction] 99 % Xiang Rodriguez MD Work Phone: [facility] 01-31-2024 13:47-0400 Systolic blood pressure 110 mm[Hg] Xiang Rodriguez MD Work Phone: [facility] 01-22-2024 15:15-0400 Body height 177.8 cm Corey Santiago MD Work Phone: [facility] 01-22-2024 15:15-0400 Body mass index (BMI) [Ratio] 30.85 kg/m2 Corey Santiago MD Work Phone: [facility] 01-22-2024 15:15-0400 Body weight 97.52 kg Corey Santiago MD Work Phone: [facility] 01-22-2024 15:15-0400 Diastolic blood pressure 90 mm[Hg] Corey Santiago MD Work Phone: [facility] 01-22-2024 15:15-0400 Systolic blood pressure 143 mm[Hg] Corey Santiago MD Work Phone: [facility] 01-13-2024 10:01-0400 Body height 177.8 cm No Primary Care Physician [facility] 01-13-2024 10:01-0400 Body mass index (BMI) [Ratio] 28.7 kg/m2 No Primary Care Physician [facility] 01-13-2024 10:01-0400 Body temperature 98.7 [degF] No Primary Care Physician [facility] 01-13-2024 10:01-0400 Body weight 90.71 kg No Primary Care Physician [facility] 01-13-2024 10:01-0400 Diastolic blood pressure 86 mm[Hg] No Primary Care Physician [facility] 01-13-2024 10:01-0400 Heart rate 80 /min No Primary Care Physician [facility] 01-13-2024 10:01-0400 Respiratory rate 16 /min No Primary Care Physician [facility] 01-13-2024 10:01-0400 SaO2% (BldA) [Mass fraction] 99 % No Primary Care Physician [facility] 01-13-2024 10:01-0400 Systolic blood pressure 132 mm[Hg] No Primary Care Physician [facility] 06-19-2021 15:10-0400 Body height 177.8 cm Marty Moyer Work Phone: DM-Fzphbsy-Uowqcfo Work Phone: 06-19-2021 15:10-0400 Body mass index (BMI) [Ratio] 30.85 kg/m2 Marty Moyer Work Phone: AA-Jxurmue-Bziiqtc Work Phone: 06-19-2021 15:10-0400 Body surface area Derived from formula 2.15 m2 Marty Moyer Work Phone: ZP-Fbixbyj-Xwgvmjk Work Phone: 06-19-2021 15:10-0400 Body weight 97.52 kg Marty Moyer Work Phone: XZ-Tzbhgxw-Ugkcdki Work Phone: 06-19-2021 15:10-0400 Diastolic blood pressure 95 mm[Hg] Marty Moyer Work Phone: RD-Wtnxjlv-Nhrmvns Work Phone: 06-19-2021 15:10-0400 Heart rate 88 /min Marty Moyer Work Phone: PL-Yldbcxl-Ciastla Work Phone: 06-19-2021 15:10-0400 Systolic blood pressure 143 mm[Hg] Marty Moyer Work Phone: KM-Somysvc-Jnujlwr Work Phone: 09-28-2019 18:32-0500 BMI (Body Mass Index) 30.45 kg/m2 Marty Moyer [facility] Work Phone: 09-28-2019 18:32-0500 Body weight 96.25 kg Marty Moyer [facility] Work Phone: 09-28-2019 18:32-0500 BP Diastolic 92 mm[Hg] Marty Moyer [facility] Work Phone: Comment on above: Location: [facility]; 09-28-2019 18:32-0500 BP Systolic 134 mm[Hg] Marty Moyer [facility] Work Phone: Comment on above: Location: [facility]; 09-28-2019 18:32-0500 BSA (Body Surface Area) 2.14 m2 Marty Cariasd -Medical [employer] [facility] Work Phone: 09-28-2019 18:32-0500 Height 177.8 cm Marty Cariasd [facility] Work Phone: 09-28-2019 18:32-0500 Pulse (Heart Rate) 72 /min Marty Cariasd -[facility] Work Phone: Encounters Encounter Date Encounter Type Care Provider Facility Start: 06-12-2025 End: 06-12-[address] Xiang Rodriguez MD Work Phone: -Laboratory Start: 06-12-2025 End: 06-12-[address] Anthony Cordova MD -Laboratory Work Phone: Start: 06-12-2025 End: 06-12-2025 ambulatory Anthony Cordova Facility:[facility] Start: 04-03-2025 End: 04-03-[address] William Velez DO Work Phone: [facility] Work Phone: Start: 04-03-2025 End: 04-03-[address] Anthony Cordova MD -Laboratory Work Phone: Start: 04-03-2025 End: 04-03-2025 ambulatory Anthony Cordova Facility:[facility] Start: 02-10-2025 End: 02-10-2025 Office outpatient visit 25 minutes Corey Santiago MD Work Phone: [facility] Comment on above: Male hypogonadism; Nocturia; Urinary frequency; Hx of prostatitis Start: 02-10-2025 End: 02-10-2025 ambulatory [facility] Start: 12-25-2024 End: 12-25-[address] William Velez DO Work Phone: [facility] Work Phone: Start: 12-25-2024 End: 12-25-[address] William Velez DO -Laboratory, Specimen Work Phone: Start: 12-25-2024 End: 12-25-2024 ambulatory [facility] Facility:[facility] Start: 12-19-2024 End: 12-19-[address] William Velez DO -Ultrasound, [facility] Work Phone: Start: 12-19-2024 End: 12-19-2024 ambulatory [facility] Facility:[facility] Start: 12-10-2024 End: 12-10-2024 Office outpatient new 45 minutes William Velez DO Work Phone: [facility] Comment on above: Dyspepsia (Primary D x); Gastroesophageal reflux disease with esophagitis without hemorrhage; RUQ pain Start: 12-10-2024 End: 12-10-2024 ambulatory WILLIAM R [facility] Ambulatory Start: 09-11-2024 End: 09-11-2024 Office outpatient visit 15 minutes Xiang Rodriguez MD Work Phone: [facility] Comment on above: Gastroesophageal ref lux disease with esophagitis without hemorrhage Start: 09-11-2024 End: 09-11-2024 ambulatory [facility]ulatory Start: 08-12-2024 End: 08-12-2024 Office outpatient visit 25 minutes Corey Santiago MD Work Phone: [facility] Comment on above: Male hypogonadism; Nocturia; Hx of prostatitis Start: 08-12-2024 End: 08-12-2024 ambulatory [facility] Start: 08-05-2024 End: 08-05-2024 ambulatory [facility] Start: 06-17-2024 End: 06-17-2024 Office outpatient visit 25 minutes Corey Santiago MD Work Phone: [facility] Comment on above: Male hypogonadism; Nocturia Start: 03-06-2024 End: 03-06-2024 Office outpatient visit 15 minutes Xiang Rodriguez MD Work Phone: [facility] Comment on above: Gastroesophageal ref lux disease with esophagitis without hemorrhage (Primary Dx) Start: 03-02-2024 End: 03-02-2024 Office outpatient visit 25 minutes Corey Santiago MD Work Phone: [facility] Comment on above: BPH with urinary obs truction; Nocturia; Urinary frequency; Urinary hesitancy; Male hypogonadism; Hx of prostatitis Start: 02-26-2024 End: 02-26-2024 ambulatory [facility] Start: 02-26-2024 End: 02-26-2024 Office outpatient visit 25 minutes Corey Santiago MD Work Phone: [facility] Comment on above: Hx of prostatitis; BPH with urinary obstruction; Nocturia; Other fatigue Start: 01-31-2024 End: 01-31-2024 ambulatory MARTY MYOER [facility] Start: 01-31-2024 End: 01-31-2024 Office outpatient new 45 minutes Xiang Rodriguez MD Work Phone: [facility] Comment on above: Pain of upper abdome n (Primary Dx); Fatigue, unspecified type; Gastroesophageal reflux disease with esophagitis without hemorrhage Start: 01-22-2024 End: 01-22-2024 Office outpatient new 45 minutes Corey Santiago MD Work Phone: [facility] Comment on above: Urinary tract infect ion without hematuria, site unspecified (Primary Dx); Urinary hesitancy; Urinary frequency; Hx of prostatitis Start: 01-13-2024 End: 01-13-2024 ambulatory No Primary Care Physician [facility] Work Phone: Start: 01-13-2024 End: 01-13-2024 Patient encounter procedure No Primary Care Physician [facility] Work Phone: Start: 11-28-2023 End: 11-28-2023 Patient encounter procedure No Primary Care Physician [facility] Work Phone: Start: 07-24-2021 AUDIT Marty Moyer Work Phone: [facility] Work Phone: Start: 06-19-2021 AUDIT Marty Moyer Work Phone: [facility] Work Phone: Start: 06-19-2021 Office outpatient ne w 45 minutes Marty Moyer Work Phone: [id number] 232 DO Work Phone: Start: 01-08-2019 End: 01-09-2019 Patient encounter procedure [facility] Procedures Date Procedure Procedure Detail [...] 2) Zoste r Vaccines (1 of 2) [facility] Start: 08-12-2025 End: 02-10-2026 Testosterone [Mass/volume] in Serum or Plasma Testosterone Lab Routine Male hypogonadism Nocturia Urinary frequency Expected: 08/12/2025 (Approximate), Expires: 02/10/2026 [facility] Work Phone: Comment on above: Expected: 08/12/2025 (Approximate), Expires: 02/10/2026 Start: 06-28-2025 Influenza vaccination Influenz a Vaccine (Season Ended) [facility] Start: 05-12-2025 End: 02-10-2026 Hemoglobin and Hematocrit panel - Blood Hemoglobin and Hematocrit, Blood Lab Routine Male hypogonadism Nocturia Urinary frequency Expected: 05/12/2025 (Approximate), Expires: 02/10/2026 [facility] Service Area Work Phone: Comment on above: Expected: 05/12/2025 (Approximate), Expires: 02/10/2026 Start: 05-12-2025 End: 02-10-2026 Prostate specific Ag [Mass/volume] in Serum or Plasma Prostate Specific Antigen Lab Routine Male hypogonadism Nocturia Urinary frequency Expected: 05/12/2025 (Approximate), Expires: 02/10/2026 [facility] Work Phone: Comment on above: Expected: 05/12/2025 (Approximate), Expires: 02/10/2026 Start: 02-10-2025 End: 02-10-2025 Patient encounter procedure 02/10/2025 3:30 PM EDT Office Visit [facility] [address] [phone] Corey Santiago MD [address] [place] [address] [facility] Start: 01-26-2025 End: 08-12-2025 Hemoglobin and Hematocrit panel - Blood Hemoglobin and Hematocrit, Blood Lab Routine Male hypogonadism Expected: 01/26/2025 (Approximate), Expires: 08/12/2025 [facility] Work Phone: Comment on above: Expected: 01/26/2025 (Approximate), Expires: 08/12/2025 Start: 01-26-2025 End: 08-12-2025 Prostate specific Ag [Mass/volume] in Serum or Plasma Prostate Specific Antigen Lab Routine Nocturia Expected: 01/26/2025 (Approximate), Expires: 08/12/2025 [facility] Service Area Work Phone: Comment on above: Expected: 01/26/2025 (Approximate), Expires: 08/12/2025 Start: 01-26-2025 End: 08-12-2025 Testosterone [Mass/volume] in Serum or Plasma Testosterone Lab Routine Male hypogonadism Expected: 01/26/2025 (Approximate), Expires: 08/12/2025 [facility] Work Phone: Comment on above: Expected: 01/26/2025 (Approximate), Expires: 08/12/2025 Start: 12-14-2024 End: 12-14-2024 Patient encounter procedure 12/14/2024 4:30 PM EST Appointment [address] [phone] [facility] Start: 12-10-2024 End: 03-09-2025 Helicobacter pylori Ag [Presence] in Stool by Immunoassay H. Pylori Antigen, Stool Lab Routine Dyspepsia Expected: 12/10/2024 (Approximate), Expires: 03/09/2025 [facility] Work Phone: Comment on above: Expected: 12/10/2024 (Approximate), Expires: 03/09/2025 Start: 12-10-2024 End: 12-10-2025 US Liver limited US abdomen limited liver Imaging Routine Dyspepsia RUQ pain Expected: 12/10/2024 (Approximate), Expires: 12/10/2025 [facility] Service Area Work Phone: Comment on above: Expected: 12/10/2024 (Approximate), Expires: 12/10/2025 Start: 11-12-2024 End: 08-12-2025 Hemoglobin and Hematocrit panel - Blood Hemoglobin and Hematocrit, Blood Lab Routine Male hypogonadism Expected: 11/12/2024 (Approximate), Expires: 08/12/2025 [facility] Work Phone: Comment on above: Expected: 11/12/2024 (Approximate), Expires: 08/12/2025 Start: 11-12-2024 End: 08-12-2025 Prostate specific Ag [Mass/volume] in Serum or Plasma Prostate Specific Antigen Lab Routine Nocturia Expected: 11/12/2024 (Approximate), Expires: 08/12/2025 [facility] Work Phone: Comment on above: Expected: 11/12/2024 (Approximate), Expires: 08/12/2025 Start: 11-12-2024 End: 08-12-2025 Testosterone [Mass/volume] in Serum or Plasma Testosterone Lab Routine Male hypogonadism Expected: 11/12/2024 (Approximate), Expires: 08/12/2025 [facility] Work Phone: Comment on above: Expected: 11/12/2024 (Approximate), Expires: 08/12/2025 Start: 09-11-2024 End: 09-11-2024 Patient encounter procedure [facility] Start: 08-12-2024 End: 08-12-2024 Patient encounter procedure 08/12/2024 3:15 PM EDT Office Visit [address] [place] [phone] Corey Santiago MD [address] [place] [address] [id number] [facility] Start: 06-28-2024 COVID-19 Vaccine () COVID-19 Vaccine () [facility] Start: 06-28-2024 COVID-19 Vaccine () COVID-19 Vaccine () [facility] Start: 06-28-2024 Influenza vaccination [facility] Start: 06-17-2024 End: 06-17-2024 Patient encounter procedure 06/17/2024 3:45 PM EDT Office Visit [address] [phone] Corey Santiago MD [address] [place] [id number] [facility] Start: 06-17-2024 End: 06-17-2025 Hemoglobin and Hematocrit panel - Blood Hemoglobin and Hematocrit, Blood Lab Routine Male hypogonadism Expected: 06/17/2024 (Approximate), Expires: 06/17/2025 [facility] Work Phone: Comment on above: Expected: 06/17/2024 (Approximate), Expires: 06/17/2025 Start: 06-17-2024 End: 06-17-2025 Prostate specific Ag [Mass/volume] in Serum or Plasma Prostate Specific Antigen Lab Routine Male hypogonadism Nocturia Expected: 06/17/2024 (Approximate), Expires: 06/17/2025 [facility] Service Area Work Phone: Comment on above: Expected: 06/17/2024 (Approximate), Expires: 06/17/2025 Start: 06-17-2024 End: 06-17-2025 Testosterone [Mass/volume] in Serum or Plasma Testosterone Lab Routine Male hypogonadism Expected: 06/17/2024 (Approximate), Expires: 06/17/2025 [facility] Work Phone: Comment on above: Expected: 06/17/2024 (Approximate), Expires: 06/17/2025 Start: 06-02-2024 End: 03-02-2025 Hemoglobin and Hematocrit panel - Blood Hemoglobin and Hematocrit, Blood Lab Routine Male hypogonadism Expected: 06/02/2024 (Approximate), Expires: 03/02/2025 [facility] Work Phone: Comment on above: Expected: 06/02/2024 (Approximate), Expires: 03/02/2025 Start: 06-02-2024 End: 03-02-2025 Prostate specific Ag [Mass/volume] in Serum or Plasma Prostate Specific Antigen Lab Routine Male hypogonadism Expected: 06/02/2024 (Approximate), Expires: 03/02/2025 [facility] Service Area Work Phone: Comment on above: Expected: 06/02/2024 (Approximate), Expires: 03/02/2025 Start: 06-02-2024 End: 03-02-2025 Testosterone [Mass/volume] in Serum or Plasma Testosterone Lab Routine Male hypogonadism Expected: 06/02/2024 (Approximate), Expires: 03/02/2025 [facility] Work Phone: Comment on above: Expected: 06/02/2024 (Approximate), Expires: 03/02/2025 Start: 03-06-2024 End: 03-06-2024 Patient encounter procedure 03/06/2024 3:40 PM EDT Office Visit [facility] [address] [place] [phone] Xiang Rodriguez MD [address] [place], [place] [phone] [facility] Start: 03-02-2024 End: 03-02-2024 Telemedicine consultation with patient 03/02/2024 10:45 AM EDT Telemedicine [facility] [address] [facility] [address] [place] [address] Corey Santiago MD [address] [place] [address] [facility] Start: 02-26-2024 End: 02-25-2025 Testosterone,Free and Total Testosterone,Free and Total Lab Routine Other fatigue Expected: 02/26/2024 (Approximate), Expires: 02/25/2025 [facility] Work Phone: Comment on above: Expected: 02/26/2024 (Approximate), Expires: 02/25/2025 Start: 02-26-2024 End: 02-26-2024 Patient encounter procedure 02/26/2024 7:45 AM EDT Office Visit [facility] [address] [facility] [address] [place] [phone] Corey Santiago MD [address] [place] [address] [facility] Start: 01-31-2024 End: 01-31-2024 ambulatory 01/31/2024 2:40 PM EDT Lab [facility] [address] [place] [phone] Fatigue, unspecified type; Pain of upper abdomen; Gastroesophageal reflux disease with esophagitis without hemorrhage [facility] Comment on above: Fatigue, unspecified type; Pain of upper abdomen; Gastroesophageal reflux disease with esophagitis without hemorrhage Start: 01-31-2024 End: 01-30-2025 CBC panel - Blood by Automated count [facility] Work Phone: Comment on above: Expected: 01/31/2024 (Approximate), Expires: 01/30/2025 Start: 01-31-2024 End: 01-30-2025 Cobalamin (Vitamin B12) [Mass/volume] in Serum or Plasma [facility] Work Phone: Comment on above: Expected: 01/31/2024 (Approximate), Expires: 01/30/2025 Start: 01-31-2024 End: 01-30-2025 Comprehensive metabolic 2000 panel - Serum or Plasma [facility] Work Phone: Comment on above: Expected: 01/31/2024 (Approximate), Expires: 01/30/2025 Start: 01-31-2024 End: 01-30-2025 Lipase [Enzymatic activity/volume] in Serum or Plasma [facility] Work Phone: Comment on above: Expected: 01/31/2024 (Approximate), Expires: 01/30/2025 Start: 01-31-2024 End: 01-30-2025 Magnesium [Mass/volume] in Serum or Plasma [facility] Work Phone: Comment on above: Expected: 01/31/2024 (Approximate), Expires: 01/30/2025 Start: 01-31-2024 End: 01-30-2025 Thyrotropin [Units/volume] in Serum or Plasma [facility] Work Phone: Comment on above: Expected: 01/31/2024 (Approximate), Expires: 01/30/2025 Start: 06-28-2023 COVID-19 Vaccine ( season) COVID-19 Vaccine ( season) [facility] Start: 06-28-2023 Influenza vaccination Influenza Vacc ine (#1) [facility] Start: 11-18-2021 DTaP/Tdap/Td Vaccine s (3 - Td or Tdap) DTaP/Tdap/Td Vaccines (3 - Td or Tdap) [facility] Start: 08-09-2021 VASECTOMY, Provider: [facility] RM,[id number], Status: Pen, Time: 4:15 PM VASECTOMY, Provider: [facility] RM,[id number], Status: Pen, Time: 4:15 PM [id number] 232 DO Work Phone: Start: 08-07-2021 VASECTOMY, Provider: [facility] RM,[id number], Status: Pen, Time: 4:15 PM VASECTOMY, Provider: [facility] PROCEDURE CASSIE,[id number], Status: Pen, Time: 4:15 PM [facility] Work Phone: Start: 02-18-2010 MMR Vaccines (1 of 1 - Standard series) MMR Vaccines (1 of 1 - Standard series) [facility] Start: 02-18-2010 Varicella vaccination Varicell a Vaccines (1 of 2 - 13+ 2-dose series) [facility] Start: 2007 DTaP/Tdap/Td Vaccine s (1 - Tdap) DTaP/Tdap/Td Vaccines (1 - Tdap) [facility] Start: 01-03-2005 IPV Vaccines (2 of 3 - Adult catch-up series) IPV Vaccines (2 of 3 - Adult catch-up series) [facility] Start: 2003 Diabetes mellitus screening Diabetes Screening [facility] Start: 2003 Hepatitis C screening Hepatitis C Sc reening [facility] Start: 1991 Pneumococcal Vaccine : Pediatrics (0 to 5 Years) and At-Risk Patients (6 to 64 Years) (1 - PCV) Pneumococcal Vaccine: Pediatrics (0 to 5 Years) and At-Risk Patients (6 to 64 Years) (1 - PCV) [facility] Start: 1991 Pneumococcal Vaccine : Pediatrics (0 to 5 Years) and At-Risk Patients (6 to 64 Years) (1 of 2 - PCV) Pneumococcal Vaccine: Pediatrics (0 to 5 Years) and At-Risk Patients (6 to 64 Years) (1 of 2 - PCV) [facility] Start: 1986 MMR Vaccines (1 of 1 - Standard series) MMR Vaccines (1 of 1 - Standard series) [facility] Start: 1986 Varicella vaccination Varicell a Vaccines (1 of 2 - 2-dose childhood series) [facility] Start: 1985 Hepatitis B Vaccines (1 of 3 - 3-dose series) Hepatitis B Vaccines (1 of 3 - 3-dose series) [facility] Start: 1985 HIV screening HIV Screening [facility] Start: 1985 Lipid panel Lipid Panel [facility] Start: 1985 Yearly Adult Physical Yearly Adult P hysical [facility] Immunizations Immunization Date Immunization Notes Care Provider Ernie grubbs 08-14-2015 influenza virus vacc ine, unspecified formulation Corey Santiago MD Work Phone: [facility] Work Phone: 07-31-2012 influenza, seasonal, injectable, preservative free Xiang Rodriguez MD Work Phone: [facility] Work Phone: 11-18-2011 anthrax vaccine Xiang mccallum MD Work Phone: [facility] Work Phone: 11-18-2011 influenza, seasonal, injectable, preservative free Xiang Rodriguez MD Work Phone: [facility] Work Phone: 11-18-2011 tetanus toxoid, redu den diphtheria toxoid, and acellular pertussis vaccine, adsorbed Xiang Rodriguez MD Work Phone: [facility] Work Phone: 11-18-2011 typhoid capsular polysaccharide vaccine Xiang Rodriguez MD Work Phone: [facility] Work Phone: 09-02-2010 influenza virus vacc ine, split virus (incl. purified surface antigen) Xiang Rodriguez MD Work Phone: [facility] Work Phone: 01-21-2010 novel influenza-H1N1 -09, injectable Xiang Rodriguez MD Work Phone: [facility] Work Phone: 07-23-2009 influenza virus vacc ine, live, attenuated, for intranasal use Xiang Rodriguez MD Work Phone: [facility] Work Phone: 06-26-2007 hepatitis A and hepatitis B vaccine Xiang Rodriguez MD Work Phone: [facility] Work Phone: 04-19-2007 anthrax vaccine Xiang mccallum MD Work Phone: [facility] 03-27-2007 anthrax vaccine Xiang mccallum MD Work Phone: [facility] Work Phone: 09-10-2006 influenza virus vacc ine, live, attenuated, for intranasal use Xiang Rodriguez MD Work Phone: [facility] Work Phone: 09-10-2006 vaccinia (smallpox) vaccine Xiang Rodriguez MD Work Phone: [facility] Work Phone: 09-02-2006 anthrax vaccine Xiang mccallum MD Work Phone: [facility] Work Phone: 09-02-2006 hepatitis A and hepatitis B vaccine Xiang Rodriguez MD Work Phone: [facility] Work Phone: 09-02-2006 typhoid capsular polysaccharide vaccine Xiang Rodriguez MD Work Phone: [facility] Work Phone: 07-22-2005 hepatitis A vaccine, adult dosage Xiang Rodriguez MD Work Phone: [facility] Work Phone: 12-06-2004 hepatitis A and hepatitis B vaccine Xiang Rodriguez MD Work Phone: [facility] Work Phone: 12-06-2004 influenza virus vacc ine, split virus (incl. purified surface antigen) Xiang Rodriguez MD Work Phone: [facility] Work Phone: 12-06-2004 meningococcal polysaccharide vaccine (MPSV4) Xiang Rodriguez MD Work Phone: [facility] Work Phone: 12-06-2004 poliovirus vaccine, inactivated Xiang Rodriguez MD Work Phone: [facility] Work Phone: 12-06-2004 tetanus and diphther ia toxoids, adsorbed, preservative free, for adult use (2 Lf of tetanus toxoid and 2 Lf of diphtheria toxoid) Xiang Rodriguez MD Work Phone: [facility] Work Phone: 12-06-2004 poliovirus vaccine, unspecified formulation Corey Santiago MD Work Phone: [facility] Work Phone: Payers Date Payer Category Payer [employer] ( [employer] others) [id number] 2024 Self-pay [id number] 2023 [employer] ( and others) [id number] 2018 () [id number] 2018 [employer] ( and others) [id number] 2017 Managed Care (Private) [facility] [id number] 2017 Private Health Insurance [employer] C [facility] [id number] 2017-Present [id number] [place] [address] [id number] 2017 Private Health Insurance [id number] 1985 Unknown [id number] 1985 Unknown [id number] 1985 Unknown [id number] 1985 Unknown [id number] 1985 Unknown [id number] 1985 Unknown [id number] 1985 Unknown [id number] Unknown Unknown [id number] Unknown [id number] Unknown [id number] Unknown [id number] Social History Date Type Detail Facility Assertion Unknown if ever smoked [facility] Work Phone: Start: 01-31-2024 End: 09-11-2024 Former smokeless tobacco use Former smokeless tobacco use [facility] Start: 01-13-2024 Tobacco smoking stat us NHIS Unknown if ever smoked [facility] Start: 1985 Sex Assigned At Male [facility] Start: 01-13-2024 End: 01-22-2024 Tobacco smoking status NHIS Never smoked tobacco [facility] Work Phone: Start: 01-22-2024 Tobacco use and exposure Smokeless tobacco non-user [facility] Work Phone: Start: 1985 Sex Assigned At Not on file [facility] Work Phone: Start: 01-31-2024 End: 09-11-2024 Gender identity Not on file [facility] Start: 01-12-2024 End: 12-10-2024 Exposure to SARS-CoV-2 (event) Not sure [facility] Start: 09-11-2024 End: 12-10-2024 Alcoholic beverage intake Ex-drinker (finding) [facility] Work Phone: Start: 01-07-2025 Sex Male (finding) [facility] Medical Equipment Procedure Code Equipment Code Equipment Origin al Text Equipment Identifier Dates Use for IM injections [id number] Start: 08-17-2024 End: 02-10-2025 Use for IM injections [id number] Start: 06-17-2024 End: 08-12-2024 Use for IM injections [id number] Start: 02-10-2025 Functional Status Date Assessment Result Facility NEGATED: Highlighted row Functional performance Functional status health issues are not documented [facility] Work Phone: Mental Status Date Assessment Result Facility NEGATED: Highlighted row Cognitive function [Interpretation] Cognitive status health issues are not documented [facility] Work Phone: Clinical Notes 01-22-2024 to 02-10-2025 [...] with IM TRT. In his own words "I feel great" Patient does take OTC estrogen audi. Most [...] 02/10/25 3:42 PM documented in this encounter [facility] Work Phone: 12-10-2024 History of Present illness [...] 12/10/24 3:36 PM documented in this encounter [facility] Work Phone: 09-11-2024 History of Present illness [...] 116/74 Pulse 87 Ht 1.778 m (5' 10") Wt 86.5 kg (190 lb 12.8 oz) [...] Referral to Gastroenterology documented in this encounter [facility] Work Phone: 08-12-2024 History of Present illness [...] months with LABS documented in this encounter [facility] [facility] Work Phone: 06-17-2024 History of Present illness Narrative Subjective Patient ID: Fan Thomas is a 38 y.o. male. HPI Patient is here for 3 month follow up for hx of hypogonadism. He was started on Xyosted and states he is feeling "better", has more energy. No recent labs.. Prior [...] F/U 2 months documented in this encounter [facility] Work Phone: 03-06-2024 History of Present illness [...] 126/78 Pulse 78 Ht 1.778 m (5' 10") Wt 93.4 kg (206 lb) SpO2 99% [...] - Primary K21.00 documented in this encounter [facility] Work Phone: 03-02-2024 History of Present illness [...] with T level documented in this encounter [facility] Work Phone: 02-26-2024 History of Present illness [...] T level virtual documented in this encounter [facility] Work Phone: 01-31-2024 History of Present illness Narrative Subjective Patient ID: Fan Thomas is a 38 y.o. male who presents for [facility] (CHRONIC NAUSEA x1mo). HPI Off-and-on nausea [...] 110/82 Pulse 62 Ht 1.778 m (5' 10") Wt 94.6 kg (208 lb 8 oz) [...] Thyroid Stimulating Hormone documented in this encounter [facility] Work Phone: 01-22-2024 History of Present illness [...] F/U 3 weeks documented in this encounter [facility] Work Phone: Evaluation note No assessment inform ation available [facility] Work Phone: Evaluation note Diagnosis Urinary tract infection without hematuria, site unspecified- Primary Urinary hesitancy Urinary frequency Hx of prostatitis documented in this encounter [facility] Work Phone: Evaluation note* Diagnosis Pain of upper abdomen- Primary Fatigue, unspecified type Gastroesophageal reflux disease with esophagitis without hemorrhage Fatigue, unspecified type Pain of upper abdomen Gastroesophageal reflux disease with esophagitis without hemorrhage documented in this encounter [facility] Work Phone: [phone] note* Diagnosis Hx of prostatitis BPH with urinary obstruction Hypertrophy of prostate with urinary obstruction and other lower urinary tract symptoms (LUTS) Nocturia Other fatigue documented in this encounter [facility] Work Phone: [phone] note* Diagnosis BPH with urinary obstruction Hypertrophy of prostate with urinary obstruction and other lower urinary tract symptoms (LUTS) Nocturia Urinary frequency Urinary hesitancy Male hypogonadism Other testicular hypofunction Hx of prostatitis documented in this encounter [facility] Work Phone: [phone] note* Diagnosis Gastroesophageal reflux disease with esophagitis without hemorrhage- Primary documented in this encounter [facility] Work Phone: [phone] note* Diagnosis Male hypogonadism Other testicular hypofunction Nocturia Hx of prostatitis documented in this encounter [facility] Work Phone: [phone] note* Diagnosis Gastroesophageal reflux disease with esophagitis without hemorrhage documented in this encounter [facility] Work Phone: [phone] note* Diagnosis Male hypogonadism Other testicular hypofunction Nocturia documented in this encounter [facility] Work Phone: [phone] note* Diagnosis Dyspepsia- Primary Dyspepsia and other specified disorders of function of stomach Gastroesophageal reflux disease with esophagitis without hemorrhage RUQ pain Abdominal pain, right upper quadrant documented in this encounter [facility] Work Phone: [phone] note* Diagnosis Male hypogonadism Other testicular hypofunction Nocturia Urinary frequency Hx of prostatitis documented in this encounter [facility] Work Phone: [phone] of Present illness NarrativePatient is here for vasectomy consult. Patient is and 3 children. LUT'S sx are mild and stable. Denies urgency and frequency. Denies dysuria. Denies hematuria. Nocturia x1. No medication for [facility]AN[id number] 232 DO Work Phone: reason for referral (narrative)* Consultation (Routine) - Authorized Specialty Diagnoses / Procedures Referred By Jaki [email or web address] Referred To Contact Primary Care Procedures Follow Up In Primary Care - Established Xiang Rodriguez MD [address] [place] [address] Referral ID Status Reason Start Date Expiration Date V isits Requested Visits Authorized [id number] Authorized 03/06/2024 03/06/2025 1 1 T [facility] Work Phone: Refdxm for referral (narrative)No reason for referral information [facility] Work Phone: Summary Purpose Family History No [...] No May 14, 2021 8:51pm 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 No May 14 8:51pm Chief Complaint Vasectomy consult Chief Complaint and Reason for Visit Chief Complaint COVID TEST/ CAMELIA BR AND NAUSEA/FATIGUE COVID TEST/CAMELIA BRAND Chief Complaint Admit Date LIVER RUQ December 19, 2024 7:40am Chief Complaint Admit Date LIVER RUQ December 19, 2024 7:40am SKIN- FASTING April 03, 2025 8:58a m Chief Complaint Admit Date SKIN- FASTING April 03, 2025 8:58a m Additional Source Comments (unrecognized sect ion and content) No Status Records FoundNo Status Records FoundNo Status Records FoundNo Status Records FoundNo Status Records FoundNo Status Records FoundNo Status Records Found INFORMATION SOURCE (unrecogn ized section and content) DATE CREATED AUTHOR 01/10/2019 [facility] DATE CREATED AUTHOR AUTHOR'S ORGANIZ ATION 03/11/2021 [facility] DATE CREATED AUTHOR AUTHOR'S ORGANIZ ATION 08/10/2021 [employer] DATE CREATED AUTHOR AUTHOR'S ORGANIZ ATION 08/10/2024 [facility] DATE CREATED AUTHOR AUTHOR'S ORGANIZ ATION 02/07/2025 [facility] DATE CREATED AUTHOR AUTHOR'S ORGANIZ ATION 06/20/2025 [facility] DATE CREATED AUTHOR AUTHOR'S ORGANIZ ATION 07/03/2025 [facility] 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 Teams (unrecognized sec tion and content) Team [...] Provider Active MAURICE Villasenor Attending Provider Active Title Searcher Relationship Specialty Start Date End Date Marty Moyer MD PCP - General 09/28/19 Title Searcher Relationship Specialty Start Date End Date Marty Moyer MD PCP - General 09/28/19 Title Searcher Relationship Specialty Start Date End Date Xiang Rodriguez MD [address] [id number] PCP - General Family Medicine 02/07/24 Title Searcher Relationship Specialty Start Date End Date Xiang Rodriguez MD [address] [place] [address] PCP - General Family Medicine 02/07/24 Title Searcher Relationship Specialty Start Date End Date Xiang Rodriguez MD [address] [id number] PCP - General Family Medicine 02/07/24 Title Searcher Relationship Specialty Start Date End Date Xiang Rodriguez MD PCP - General Family Medicine 02/07/24 Title Searcher Relationship Specialty Start Date End Date Xiang Rodriguez MD PCP - General Family Medicine 02/07/24 Title Searcher Relationship Specialty Start Date End Date Xiang Rodriguez MD [address] [place] [address] PCP - General Family Medicine 02/07/24 Title Searcher Relationship Specialty Start Date End Date Xiang Rodriguez MD [address] [id number] PCP - [facility] 09/11/24 Team Status: Active Member Role [...] December 25, 2024 End: December 25, 2024 Title Searcher Relationship Specialty Start Date End Date Xiang Rodriguez MD [address] [place] [id number] PCP - [facility] 09/11/24 Team Status: Inactive Member Role Status Dates Dr. Xiang Rodriguez MD Primary Care Provider Active Start: April 03, 2025 End: April 03, 2025 Dr. Anthony Cordova MD Attending Provider Active Start: April 03, 2025 End: April 03, 2025 Dr. Anthony Cordova MD Referring Provider Active Start: April 03, 2025 End: April 03, 2025 Team Status: Active Member Role/Relationship Status Dates Dr. Xiang Rodriguez MD Primary Care Provider Active Team Status: Inactive Member Role/Relationship Status Dates Dr. Xiang Rodriguez MD Primary Care Provider Active Start: April 03, 2025 End: April 03, 2025 Dr. Anthony Cordova MD Attending Provider Active Start: April 03, 2025 End: April 03, 2025 Dr. Anthony Cordova MD Referring Provider Active Start: April 03, 2025 End: April 03, 2025 Team Status: Inactive Member Role/Relationship Status Dates Dr. Xiang Rodriguez MD Primary Care Provider Active Start: June 12, 2025 End: June 12, 2025 Dr. Anthony Cordova MD Attending Provider Active Start: June 12, 2025 End: June 12, 2025 Dr. Anthony Cordova MD Referring Provider Active Start: June 12, 2025 End: June 12, 2025 Goals (unrecognized section and content) Goals [...] Expiration Date V isits Requested Visits Authorized [id number] Authorized 03/06/2024 03/06/2025 1 1 Reason Comments [...] with esophagitis without hemorrhage Xiang Rodriguez MD [facility] [place] [address] Phone: tel: fax: Referral ID Status Reason Start Date Expiration Date Visits Requested Visits Authorized [id number] Authorized Specialty Services Required 4 09/11/2025 1 1 FOR RECORDS PERTAINING TO [...] BE BASED ON THE PRIMARY CLINICAL RECORDS. [facility]. provides no warranty or guarantee of the accuracy or completeness of information in this document.
[2025-07-31 08:52] LABS: Hematocrit 42.0 % (40-54); Hemoglobin 14.8 g/dL (13.0-16.5)
[2025-08-01 11:59] LABS: PSA,Total - Annual Screen 0.57 ng/mL (0.02-4.00)
== END | disposition home or self-care (01) ==
LOC: LAB 07:59
PROVIDERS: PCP Family Medicine; Referring Provider Urology; Visit Provider Urology
DX: E29.1 Testicular hypofunction (principal); R35.1 Nocturia; R35.0 Frequency of micturition
CPT/HCPCS: 36415; 84153; 84403; 85014; 85018; G0103